=== PATIENT | male | born 1945 | race Caucasian/White ===

== ENCOUNTER 2016-07-31 10:01 | Inpatient (IN) | payer MEDICARE, OTHER ==
[2016-07-31] VITALS (7 sets, daily range): BP systolic 121–137; BP diastolic 63–73; PULSE 87–96; RESP 18–20; TEMP 98.6–101.1; O2SAT 92–96
[~2016-07-31] VITALS: Ht 185.4 cm; Wt 95.4 kg
[~2016-07-31 10:01] MED LIST: DOCU1CAP39 PO; LACT20SO4 PO; OMEP20TA39 PO; REME45TA PO; TRAZ50TA4 PO; VENL75XR PO; ZYPR15TA PO
[2016-07-31] MEDS ORDERED: SODIUM CHLOR 0.9% 1000 ML INJ 800 ML IV ONE (10:08)
[2016-07-31] MEDS ORDERED: SODIUM CHLOR 0.9% 1000 ML INJ 1,000 ML IV ONE (10:08)
--- NOTE | 2016-07-31 10:13 | PD ---
HPI Chief Complaint: generalized weakness Time Seen by Provider: 10:04 Travel History International Travel<30 days: No Contact w/Intl Traveler<30days: No Traveled to known affect area: No History of Present Illness HPI 70-year-old male brought in by ambulance from home for evaluation of fevers, chills, generalized weakness. Symptoms of been going on for last 2 days. The patient reports that he feels so weak that he can barely walk across the room. No focal deficits. EMS noted a temp of 99.8F with slight tachycardia with a heart rate of 100. Patient has had a nonproductive cough. No chest pain or dyspnea. No abdominal pain. No urinary symptoms. He reports that he has not had anything to eat or drink in the last 2 days. PFSH Past Medical History Anxiety: Yes Depression: Yes Cancer: No Cardiovascular Problems: No High Cholesterol: No Diabetes: No Diminished Hearing: Yes Headaches: No Immune Disorder: No Musculoskeletal: No Psychiatric: Yes (Depression, Delusional Disorder, Major Depressive ) Respiratory: No Immunizations Current: No Schizophrenia: Yes (PER PATIENTS BROTHER) Seizures: No Thyroid Disease: No Past Surgical History Cholecystectomy: Yes Other Surgery: Yes (gallbladder) Social History Alcohol Use: No Tobacco Use: Yes (3PPD) Substance Use: Yes Allergies-Medications (Allergen,Severity, Reaction): Coded Allergies: Penicillin (Verified Allergy, Intermediate, 01/23/15) Reported Meds & Prescriptions Reported Meds & Active Scripts Active Reported Levofloxacin 500 Mg Tab 500 Mg PO DAILY Tamsulosin (Tamsulosin HCl) 0.4 Mg Cap 0.4 Can PO HS Esomeprazole DR 40 Mg Capdr 40 Mg PO DAILY Mirtazapine 30 Mg Tab 30 Mg PO HS Alprazolam 2 Mg Tab 2 Mg PO Q8H PRN Lyrica (Pregabalin) 150 Mg Cap 150 Mg PO BID Review of Systems Except as stated in HPI: all other systems reviewed are Neg Physical Exam Narrative GENERAL: Well-developed, well-nourished, tremulous, comfortable, no acute distress. SKIN: Warm and dry. No rash. HEAD: Atraumatic. Normocephalic. EYES: Pupils equal and round. No scleral icterus. No injection or drainage. ENT: No nasal bleeding or discharge. Mucous membranes pink and dry. Several missing teeth. NECK: Trachea midline. No JVD. No nuchal rigidity. CARDIOVASCULAR: Tachycardic, regular. RESPIRATORY: No accessory muscle use. Clear to auscultation. Breath sounds equal bilaterally. GASTROINTESTINAL: Abdomen soft, non-tender, nondistended. MUSCULOSKELETAL: No obvious deformities. No clubbing. No cyanosis. No edema. NEUROLOGICAL: Awake and alert. No obvious cranial nerve deficits. Motor grossly within normal limits. Normal speech. Normal range of motion in all joints and extremities. No focal deficits. PSYCHIATRIC: Appropriate mood and affect; insight and judgment normal. Data Data Last Documented VS Vital Signs Date Time Temp Pulse Resp B/P Pulse Ox O2 Delivery O2 Flow Rate FiO2 07/31/16 11:45 92 Room Air 07/31/16 10:09 98.6 92 20 136/73 Orders Electrocardiogram (07/31/16 10:08) Complete Blood Count With Diff (07/31/16 10:08) Comprehensive Metabolic Panel (07/31/16 10:08) Prothrombin Time / Inr (Pt) (07/31/16 10:08) Act Partial Throm Time (Ptt) (07/31/16 10:08) Lactic Acid Sepsis Protocol (07/31/16 10:08) Urinalysis - C+S If Indicated (07/31/16 10:08) Influenzae A/B Antigen (07/31/16 10:08) Blood Culture (07/31/16 10:08) Chest, Single Ap (07/31/16 10:08) Blood Glucose (07/31/16 10:08) Ecg Monitoring (07/31/16 10:08) Iv Access Insert/Monitor (07/31/16 10:08) Oximetry (07/31/16 10:08) Oxygen Administration (07/31/16 10:08) Sodium Chlor 0.9% 1000 Ml Inj (Ns 1000 M (07/31/16 10:08) Sodium Chlor 0.9% 1000 Ml Inj (Ns 1000 M (07/31/16 10:08) Ct Brain W/O Iv Contrast(Rout) (07/31/16 ) Cath For Specimen (07/31/16 11:09) Labs Laboratory Tests Test 07/31/16 07/31/16 07/31/16 10:15 11:30 12:39 White Blood Count 5.3 TH/MM3 Red Blood Count 4.63 MIL/MM3 Hemoglobin 14.7 GM/DL Hematocrit 43.5 % Mean Corpuscular Volume 93.8 FL Mean Corpuscular Hemoglobin 31.7 PG Mean Corpuscular Hemoglobin 33.8 % Concent Red Cell Distribution Width 14.0 % Platelet Count 137 TH/MM3 Mean Platelet Volume 8.2 FL Neutrophils (%) (Auto) 87.8 % Lymphocytes (%) (Auto) 5.2 % Monocytes (%) (Auto) 6.5 % Eosinophils (%) (Auto) 0.0 % Basophils (%) (Auto) 0.5 % Neutrophils # (Auto) 4.7 TH/MM3 Lymphocytes # (Auto) 0.3 TH/MM3 Monocytes # (Auto) 0.3 TH/MM3 Eosinophils # (Auto) 0.0 TH/MM3 Basophils # (Auto) 0.0 TH/MM3 CBC Comment AUTO DIFF Differential Comment AUTO DIFF CONFIRMED Platelet Estimate LOW Platelet Morphology Comment NORMAL Prothrombin Time 12.7 SEC Prothromb Time International 1.1 RATIO Ratio Activated Partial 24.5 SEC Thromboplast Time Sodium Level 136 MEQ/L Potassium Level 3.9 MEQ/L Chloride Level 101 MEQ/L Carbon Dioxide Level 26.2 MEQ/L Anion Gap 9 MEQ/L Blood Urea Nitrogen 10 MG/DL Creatinine 1.43 MG/DL Estimat Glomerular Filtration 49 ML/MIN Rate Random Glucose 83 MG/DL Lactic Acid Level 1.4 mmol/L Calcium Level 8.7 MG/DL Total Bilirubin 1.1 MG/DL Aspartate Amino Transf 24 U/L (AST/SGOT) Alanine Aminotransferase 12 U/L (ALT/SGPT) Alkaline Phosphatase 67 U/L Total Protein 7.3 GM/DL Albumin 3.2 GM/DL Urine Color YELLOW Urine Turbidity CLEAR Urine pH 5.5 Urine Specific [place] 1.012 Urine Protein NEG mg/dL Urine Glucose (UA) NEG mg/dL Urine Ketones 10 mg/dL Urine Occult Blood TRACE Urine Nitrite NEG Urine Bilirubin NEG Urine Urobilinogen LESS THAN 2.0 MG/DL Urine Leukocyte Esterase NEG Urine RBC 1 /hpf Urine WBC 1 /hpf Urine Squamous Epithelial <1 /hpf Cells Urine Hyaline Casts 4 /lpf Urine Mucus FEW /lpf Microscopic Urinalysis Comment CATH-CULT NOT IND MDM Medical Decision Making Medical Screen Exam Complete: Yes Emergency Medical Condition: Yes Medical Record Reviewed: Yes Differential Diagnosis Sepsis, pneumonia, UTI, dehydration, electrolyte abnormality Narrative Course Initial vital signs show heart rate 92, blood pressure 136/73, pulse ox 95% on room air, oral temp of 98.6 reason high. CBC shows WBC 5.3, hemoglobin 14.7, hematocrit 43.5, platelets 137, neutrophils 88%. CBC is remarkable for a creatinine of 1.43 which is around his baseline, GFR 49 , otherwise unremarkable. Lactic acid is 1.4. UA is not suggestive of UTI. Chest x-ray read as normal exam. CT head: CONCLUSION: Stable CT brain compared to the prior study. 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 The patient has some renal insufficiency with a creatinine that is about double his baseline. He tells me he has not had anything to eat or drink in the last 2 days because he is felt to weak. He has had generalized weakness and is tremulous. There are no focal neurologic deficits. He lives alone. He states that he feels so weak that he is unable to walk. He is able to stand the emergency Department, however he is very unsteady. At this point the patient's diagnosis is failure to thrive. I do not believe he is a safe discharge home, and is definitely a fall risk. He will be admitted for overnight observation for further treatment and evaluation. Case discussed with [facility] hospitalist Dr. Urena who will admit the patient to his service. Diagnosis Primary Impression: Generalized weakness Additional Impressions: Failure to thrive in adult Renal insufficiency Admitting Information Admitting Physician Requests: Vinod Benites MD Jul 31, 2016 10:13
[2016-07-31] MEDS ORDERED: LYRI150C PO (10:22)
[2016-07-31] MEDS ORDERED: TAMS0.4C4 PO (10:22)
[2016-07-31] MEDS ORDERED: ESOM1CAP16 PO (10:22)
[2016-07-31] MEDS ORDERED: FLUO20CA4 PO (10:22)
[2016-07-31] MEDS ORDERED: LEVO500T3 PO (10:22)
[2016-07-31] MEDS ORDERED: MIRT30TA PO (10:22)
[2016-07-31] MEDS ORDERED: ALPR2TAB3 PO (10:22)
[2016-07-31 10:32] LABS: AUTOMATED NEUTROPHIL # 4.7 TH/MM3 (1.8-7.7); BASOPHIL % 0.5 % (0.0-2.0); HEMATOCRIT 43.5 % (39.0-51.0); LYMPH % 5.2 % (9.0-44.0); LYMPHOCYTE # 0.3 TH/MM3 (1.0-4.8); MEAN CELL VOLUME 93.8 FL (80.0-100.0); MEAN CORPUSCULAR HEMOGLOBIN 31.7 PG (27.0-34.0); MEAN CORPUSCULAR HGB CONC 33.8 % (32.0-36.0); MONO % 6.5 % (0.0-8.0); NEUT % 87.8 % (16.0-70.0); PLATELET COUNT 137 TH/MM3 (150-450); RED BLOOD COUNT 4.63 MIL/MM3 (4.50-5.90); WHITE BLOOD COUNT 5.3 TH/MM3 (4.0-11.0)
--- NOTE | 2016-07-31 10:44 | RADRPT ---
EXAM DATE/TIME: 07/31/2016 10:30 [facility] COMPARISON: No previous studies available for comparison. INDICATIONS : Shortness of breath. MEDICAL HISTORY : None. SURGICAL HISTORY : None. ENCOUNTER: Initial ACUITY: 1 day PAIN SCORE: 0/10 LOCATION: Bilateral chest FINDINGS: A single view of the chest demonstrates the lungs to be symmetrically aerated without evidence of mas s, infiltrate or effusion. The cardiomediastinal contours are unremarkable. Osseous structures are intact. CONCLUSION: Normal examination. Julius Diaz MD on July 31, 2016 at 10:42 Board Certified Radiologist. This report was verified electronically.
[2016-07-31 10:50] LABS: HEMO FLAGS AUTO DIFF
[2016-07-31 10:56] LABS: ALKALINE PHOSPHATASE 67 U/L (45-117); TOTAL BILIRUBIN ADULT 1.1 MG/DL (0.2-1.0)
[2016-07-31 11:39] LABS: PLATELET ESTIMATE SMEAR LOW (NORMAL); PLATELET MORPHOLOGY NORMAL (NORMAL); SCAN/DIFF AUTO DIFF CONFIRMED
--- NOTE | 2016-07-31 11:48 | RADRPT ---
EXAM DATE/TIME: 07/31/2016 11:13 [facility] COMPARISON: CT BRAIN W/O CONTRAST, December 04, 2014, 19:14. INDICATIONS : General weakness. Fever. RADIATION DOSE: 48.21 CTDIvol (mGy) MEDICAL HISTORY : None SURGICAL HISTORY : None. ENCOUNTER: Initial ACUITY: 1 day PAIN SCALE: 0/10 LOCATION: cranial TECHNIQUE: Multiple contiguous axial images were obtained of the head. Using automated exposure control and adj ustment of the mA and/or kV according to patient size, radiation dose was kept as low as reasonably a chievable to obtain optimal diagnostic quality images. FINDINGS: CEREBRUM: The ventricles are normal for age. There is bilateral cortical atrophy especially over the frontal lo bes. This is stable compared to the prior study. There is an old stable left lacunar infarct in the b alison ganglia. No evidence of midline shift, mass lesion, hemorrhage or acute infarction. No extra-a xial fluid collections are seen. POSTERIOR FOSSA: The cerebellum and brainstem are intact. The 4th ventricle is midline. The cerebellopontine angle i s unremarkable. EXTRACRANIAL: The visualized portion of the orbits is intact. SKULL: The calvaria is intact. No evidence of skull fracture. CONCLUSION: Stable CT brain compared to the prior study. No change in the bilateral cortical atrophy and old foca l left lacunar infarct. Bharath Kathleen MD on July 31, 2016 at 11:46 Board Certified Radiologist. This report was verified electronically.
[2016-07-31 12:12] LABS: ANION GAP 9 MEQ/L (5-15); AST (GOT) 24 U/L (15-37); BICARBONATE 26.2 MEQ/L (21.0-32.0); BLOOD UREA NITROGEN 10 MG/DL (7-18); CHLORIDE 101 MEQ/L (98-107); GLOMERULAR FILTRATION RATE 49 ML/MIN (>89); POTASSIUM 3.9 MEQ/L (3.5-5.1); SODIUM (NA) 136 MEQ/L (136-145)
[2016-07-31 12:14] LABS: INTERNATIONAL NORMALIZED RATIO 1.1 RATIO; PROTHROMBIN TIME - PATIENT 12.7 SEC (9.8-11.6)
[2016-07-31 12:18] LABS: APTT (PATIENT) 24.5 SEC (24.3-30.1)
[2016-07-31 12:20] LABS: ALT (GPT) 12 U/L (12-78)
[2016-07-31 12:57] LABS: BLOOD, URINE TRACE (NEG); COMMENT (UR) CATH-CULT NOT IND; CULTURE IF INDICATED CATH CULTURE NOT IND; GLUCOSE,URINE NEG (NEG); HYALINE CAST, URINE 4 /lpf (RARE); KETONE, URINE 10 mg/dL (NEG); MUCUS URINE FEW /lpf (OCC); NITRITE,URINE NEG (NEG); PH, URINE 5.5 (5.0-8.5); SQUAMOUS EPITHELIAL CELL URINE <1 /hpf (0-5); URINE COLOR YELLOW (YELLW/STRAW)
[2016-07-31] MEDS: SODIUM CHLOR 0.9% 1000 ML INJ 1,000 ML IV SCH ×2 (13:18→23:12)
[2016-07-31] MEDS ORDERED: NALOXONE HCL 0.4 MG/ML AMP IV PRN (13:30)
[2016-07-31] MEDS ORDERED: SODIUM CHLORIDE 0.9% FLUSH 5 ML FLUSH FLUSH PRN (13:30)
[2016-07-31] MEDS: DOCUSATE SODIUM 100 MG CAP PO SCH ×2 (13:30→20:40)
[2016-07-31] MEDS: HEPARIN SODIUM - SQ 10,000 UNITS/ML VIAL SQ SCH (14:15)
[2016-07-31] MEDS ORDERED: MIRT45TA PO (17:15)
[2016-07-31] MEDS: NYSTATIN SUSP 500,000 U/5 ML CUP SWISH-SWAL SCH ×2 (18:00→20:40)
[2016-07-31] MEDS: RESP: ALBUTEROL 2.5 MG/IPRATROPIUM 0.5 MG NEB (SCH) NEB (19:23)
[2016-07-31] MEDS: SODIUM CHLORIDE 0.9% FLUSH 5 ML FLUSH FLUSH SCH (20:40)
--- NOTE | 2016-07-31 21:35 | HP.UPD ---
H&P Update Note : 70 year old male, today unable to stand 2/2 leg weakness, falls, chills, fever 101.1 seen and examined in ED . admitted , consult neuro and ID H&P to follow Girma Urena MD Jul 31, 2016 21:30
[2016-07-31] MEDS ORDERED: Vancomycin Consult Pharmacy 1 EA OTHER SCH (21:45)
[2016-07-31] MEDS ORDERED: VANCOMYCIN INJ 1,000 MG in SODIUM CHLOR 0.9% 250 ML INJ 250 ML IV SCH (21:45)
[2016-07-31] MEDS ORDERED: VANCOMYCIN INJ 1,800 MG in SODIUM CHLORID 0.9% 500 ML INJ 500 ML IV ONE (22:30)
[2016-07-31] MEDS: ALPRAZolam 1 MG TAB PO PRN (23:11)
[2016-07-31] MEDS: TAMSULOSIN HCL 0.4 MG CAP PO SCH (23:12)
[2016-07-31] MEDS: MIRTAZAPINE 15 MG TAB PO SCH (23:12)
[2016-07-31] MEDS: PREGABALIN 75 MG CAP PO SCH (23:12)
[2016-08-01] VITALS (9 sets, daily range): BP systolic 102–142; BP diastolic 58–69; PULSE 67–102; RESP 18–20; TEMP 98.6–101.7; O2SAT 91–97
[2016-08-01] MEDS: SODIUM CHLOR 0.9% IV SCH ×2 (01:29→07:46)
[2016-08-01] MEDS: ACYCLOVIR IV SCH ×2 (01:29→07:46)
[2016-08-01] MEDS: HEPARIN SODIUM - SQ 10,000 UNITS/ML VIAL SQ SCH ×2 (01:29→13:59)
[2016-08-01] MEDS: SODIUM CHLOR 0.9% 1000 ML INJ 1,000 ML IV SCH ×2 (07:46→18:15)
[2016-08-01] MEDS: PANTOPRAZOLE SOD 40 MG DELAYED RELEASE TAB PO SCH (07:47)
[2016-08-01] MEDS: NYSTATIN SUSP 500,000 U/5 ML CUP SWISH-SWAL SCH ×4 (07:47→20:41)
[2016-08-01] MEDS: FLUoxetine HCL 20 MG CAP PO SCH (07:47)
[2016-08-01] MEDS: PREGABALIN 75 MG CAP PO SCH ×3 (07:47→20:41)
[2016-08-01] MEDS: SODIUM CHLORIDE 0.9% FLUSH 5 ML FLUSH FLUSH SCH ×2 (07:47→20:42)
[2016-08-01] MEDS: DOCUSATE SODIUM 100 MG CAP PO SCH ×2 (07:48→20:41)
--- NOTE | 2016-08-01 08:02 | PD.CONS ---
History of Present Illness Service Neurology Consult Requested By medical Reason for Consult weakness Primary Care Physician Ko Veloz, DO History of Present Illness 70-year-old male brought in by ambulance from home for evaluation of fevers, chills, generalized weakness. Symptoms of been going on for last 2 days. he has not been eating well. he feels stronger this am. denies any focal weakness, kay, neck pain, vision loss , sensory symptoms, diplopia, b/b incontinence. noted to be in renal failure. on lyrica/xanax/remeron. see's Dr. Veloz for medical care. PFSH Past Medical History Anxiety: Yes Depression: Yes Cancer: No Cardiovascular Problems: No High Cholesterol: No Diabetes: No Diminished Hearing: Yes Headaches: No Immune Disorder: No Musculoskeletal: No Psychiatric: Yes (Depression, Delusional Disorder, Major Depressive ) Respiratory: No Past Surgical History Cholecystectomy: Yes Other Surgery: Yes (gallbladder) Social History Alcohol Use: No Tobacco Use: Yes (3PPD) Substance Use: Yes Allergies-Medications (Allergen,Severity, Reaction): Coded Allergies: Penicillin (Verified Allergy, Intermediate, 01/23/15) Reported Meds & Prescriptions Reported Meds & Active Scripts Active Reported Levofloxacin 500 Mg Tab 500 Mg PO DAILY Tamsulosin (Tamsulosin HCl) 0.4 Mg Cap 0.4 Can PO HS Esomeprazole DR 40 Mg Capdr 40 Mg PO DAILY Mirtazapine 30 Mg Tab 30 Mg PO HS Alprazolam 2 Mg Tab 2 Mg PO Q8H PRN Lyrica (Pregabalin) 150 Mg Cap 150 Mg PO BID Review of Systems Except as stated in HPI: all other systems reviewed are Neg Review of Systems All other ROS: ROS reviewed as documented in chart Past Family Social History Allergies: Coded Allergies: Penicillin (Verified Allergy, Intermediate, 01/23/15) Active Ordered Medications Current Medications Medications (Trade) Dose Ordered Sig/Noe Route Start Time Stop Time Status Last Admin (NS 1000 ml Inj) 1,000 ml @ 100 mls/hr Q10H IV 07/31/16 13:18 08/01/16 07:46 (NS Flush) 2 ml UNSCH PRN FLUSH 07/31/16 13:30 (NS Flush) 2 ml BID FLUSH 07/31/16 21:00 08/01/16 07:47 (Colace) 100 mg Q12HR PO 07/31/16 13:30 (Heparin Inj) 5,000 units Q12H SQ 07/31/16 14:00 08/01/16 01:29 (Narcan Inj) 0.4 mg UNSCH PRN IV 07/31/16 13:30 (Mycostatin Liq) 5 ml QID SWISH-SWAL 07/31/16 18:00 (Pneumovax-23 Inj) 25 mcg ONCE ONCE IM 08/01/16 09:00 08/01/16 09:01 Acetaminophen/ Hydrocodone Bitart 1 tab 1 tab Q4H PRN PO 07/31/16 18:15 Pharmacy Profile Note 0 ml @ 0 mls/hr UNSCH OTHER 07/31/16 21:45 (Zovirax Inj/NS 250 ml Inj) 250 ml @ 250 mls/hr Q8H IV 08/01/16 00:00 08/01/16 07:46 (Xanax) 2 mg Q8H PRN PO 07/31/16 21:45 07/31/16 23:11 (PROzac) 20 mg DAILY PO 08/01/16 09:00 08/01/16 07:47 (Remeron) 45 mg HS PO 07/31/16 21:45 07/31/16 23:12 (Lyrica) 150 mg BID PO 07/31/16 21:45 08/01/16 07:47 (Flomax) 0.4 mg HS PO 07/31/16 21:45 07/31/16 23:12 (Protonix) 40 mg DAILY PO 08/01/16 09:00 08/01/16 07:47 Exam I&O / VS Vital Signs Date Time Temp Pulse Resp B/P Pulse Ox O2 Delivery O2 Flow Rate FiO2 08/01/16 07:37 99.1 88 18 102/58 97 08/01/16 03:28 98.6 93 20 102/62 95 07/31/16 23:17 100.0 87 20 126/67 93 07/31/16 20:03 90 07/31/16 17:27 96 07/31/16 17:15 101.1 95 18 137/72 93 07/31/16 11:45 92 Room Air 07/31/16 11:45 92 Room Air 07/31/16 11:30 88 20 121/63 96 07/31/16 10:11 95 Room Air 07/31/16 10:09 98.6 92 20 136/73 95 General: Alert and Oriented, No acute distress Eye: EOMI Respiratory: Non-labored respirations Cardiology: Normal rate Musculoskeletal: ROM Neurologic: Alert, Oriented, Normal sensory, CN II-XII intact, Gag reflex normal, Normal DTR's Psychiatric: Cooperative, Appropriate mood & affect Exam Comments alert, ox 3. pres Trump, pcp [facility]. poor eye contact at times, follows, no temp tenderness, neck supple, eomi, face sym, vff, mild ue asterixis, able to raise all 4 ext to gravity, msr symmetric, no clonus, planterflexor Review/Management Diagnosis/Plan: (1) Generalized weakness Plan: may be 2/2 dehydration, poor po intake. could also have mild serotonin syndrome in the setting of multiple psychotropic medication use and arf r/o infection- has mild fevers. cxr negative. ct brain naicp. mild asterixis on exam, no focal weakness recs ivf f/u imaging p.t. f/u cx's, temp follow exam (2) Renal insufficiency Plan: ivf (3) Depression Plan: seen by psych in the past (4) Tobacco abuse Plan: cessation d/w pt Problem Qualifiers (1) Depression: Marco Gould MD Aug 01, 2016 08:02
--- NOTE | 2016-08-01 08:32 | MH ---
cc: SAHRA MATA MD DATE OF ADMISSION 07/31/2016 DATE OF 1945 Admitted for observation CHIEF COMPLAINT Fever, chills and weakness. HISTORY OF THE PRESENT ILLNESS This is a pleasant 70-year-old white male who states that he was in his usual state of health up until about two days ago. He noted some chills and fever with generalized weakness. He states that his appetite has been decreased but he was able to keep down some food yesterday but nothing today. He does complain of some nausea but no vomiting. Denies any chest pain. No headache. No heartburn. No significant weight gain or loss within the past six months. The patient is a chronic tobacco user, states that he does still smoke 2-3 packs of cigarettes a week. Yesterday the patient was very weak and fatigued but was able to get up and go to the bathroom. Today the patient states he could not walk. He said his lower extremities felt like rubber, but he denied any numbness or tingling, just stated that he was very, very weak. The patient does have a nonproductive cough but is not coughing anything up. He is positive today for some low-grade fever and some mild tachycardia, heart rate in the 80s-100. The patient has no problems voiding. Denies any abdominal pain. Denies any history of kidney problems. PAST MEDICAL HISTORY 1. Anxiety disorder. 2. Depression. 3. Hard of hearing. 4. Delusional disorder. 5. residential tobacco use / chronic obstructive pulmonary disease. 6. The record documents per the patient's brother schizophrenia. PAST SURGICAL HISTORY Cholecystectomy. ALLERGIES PENICILLIN. MEDICATIONS Reported on admission: 1. Levofloxacin 500 milligrams p.o. daily. 2. Tamsulosin 0.4 milligrams at bedtime. 3. Esomeprazole 40 milligrams daily. 4. Mirtazapine 30 milligrams at bedtime. 5. Xanax 2 milligrams tablets, q.8h as needed. 6. Lyrica 150 milligrams p.o. twice a day. SOCIAL HISTORY The patient lives in the [facility], lives alone. 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 Denies any alcohol or illicit drugs. FAMILY HISTORY Cancer and Alzheimer's disease. REVIEW OF SYSTEMS A 12 point review was obtained, positives mentioned were generalized weakness and fatigue, cough, chills, fever, decreased appetite, expiratory wheezes. Other systems are negative or unremarkable. PHYSICAL EXAMINATION GENERAL: This is a slim but well-nourished, well-developed white male looks to be of stated age, resting in the bed with some mild distress of chills. No shortness of breath. SKIN: Warm and dry. No rashes. Turgor is good. HEENT: Atraumatic, normocephalic. Pupils equal, round, reactive to light and accommodation at 3. He has no drainage. No scleral icterus. Mucous membranes are pink and dry. He does have several missing teeth. NECK: Supple. CARDIOVASCULAR: Regular rate and rhythm. Borderline tachycardia. Heart sounds distant but no murmurs, rubs, or gallops appreciated. He has no edema and his pulses are intact. LUNGS: His upper wong are clear bilaterally. He does have expiratory wheezes in his lower lobes bilaterally. ABDOMEN: Soft. Nontender. Nondistended. Active bowel sounds in all four quadrants. MUSCULOSKELETAL: He can move his extremities on command. He has no clubbing, cyanosis or edema. 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 NEUROLOGICAL: He is alert, awake. A fairly good historian. Answers questions appropriately. No focal deficits. PSYCHIATRIC: Appropriate mood and affect. Judgment seems to be normal. LABORATORY DATA Diagnostic data, WBC 5.3, hemoglobin 14.7, hematocrit 43.5, platelets 137. Neutrophils auto 87.8. Lymphocytes 5.2. Sodium 136, potassium 3.9, chloride 101, carbon dioxide 26.2, creatinine 1.43, GFR 49, random glucose 83. Lactic acid 1.4. Calcium 8.7. Bilirubin 1.1. AST 24, ALT 12, alkaline phosphatase 67. Total protein 7.3, albumin 3.2. Urine is yellow, clear. PH is 5.5, specific gravity 1.012, negative for glucose or ketones. ____ with 10, trace occult blood. Esterase is negative. IMAGING A chest x-ray is normal examination. CT scan of the head old left lacunar infarct. No acute changes in his bilateral cortical atrophy. ASSESSMENT AND PLAN 1. Renal insufficiency with acute kidney injury. 2. History of old lacunar infarct. 3. Debility acute onset with generalized weakness and unable to walk. 4. Fever of unknown origin. 5. Possible bronchitis acute versus chronic with chronic obstructive pulmonary disease. 6. History of depression. 7. Mild protein calorie malnutrition. 8. History of schizophrenia with major depressive disorder. 9. Possible lactic acid sepsis. PLAN 1. Our plan is to admit for observation. 2. Monitor his labs. 3. Vital signs q.4h. 4. Keep him on telemetry. 5. Regular diet. 6. Reconcile his medications. 7. Deep venous thrombosis prophylaxis with heparin. 8. We will monitor his glucose and his labs. 9. O2 st 2 liters as needed. 10. DuoNeb as warranted. 11. Sequential compression devices. 12. The patient is full code, full aggressive care and we will monitor. ADDENDUM ASSESSMENT AND PLAN: After speaking with Dr. Mata, and both of us visiting this patient, there are some orders and/or diagnostic tests and consults to be added to his plan of care. DVT prophylaxis with SCDs, heparin, subcu for DVT prophylaxis, will obtain a sputum specimen if possible for culture and sensitivity and Gram stain as well as cytology. Labs to be ordered today and in the morning include C-reactive protein, CPK daily x3, LDH in the morning, B1, B6 and B12 levels, cortisol level in the morning at 6 a.m., nystatin 200 milligrams swish and swallow 4x a day, DuoNeb q6 while awake. Will consult ID and consult neurology for their expert opinion. The patient has acute onset of lower extremity weakness, as well as a low grade fever, with no leukocytosis, chills uncontrollable, lactic acid 1.4. Will also get a sed rate in the morning and reevaluate this patient's needs over the next 24 to 48 hours. Dictated by: ERIN Angelo MD STEPHANE Nugent/SHANTE /3:47 PM /8:32 AM
[2016-08-01 08:34] LABS: AUTOMATED NEUTROPHIL # 2.1 TH/MM3 (1.8-7.7); BASOPHIL % 0.8 % (0.0-2.0); EOSINOPHIL % 0.2 % (0.0-4.0); HEMATOCRIT 35.8 % (39.0-51.0); HEMO FLAGS DIFF FINAL; LYMPH % 18.3 % (9.0-44.0); LYMPHOCYTE # 0.5 TH/MM3 (1.0-4.8); MEAN CELL VOLUME 94.3 FL (80.0-100.0); MEAN CORPUSCULAR HEMOGLOBIN 31.8 PG (27.0-34.0); MEAN CORPUSCULAR HGB CONC 33.7 % (32.0-36.0); MONO % 6.5 % (0.0-8.0); NEUT % 74.2 % (16.0-70.0); PLATELET COUNT 101 TH/MM3 (150-450); RED CELL DISTRIBUTION WIDTH 13.8 % (11.6-17.2); WHITE BLOOD COUNT 2.9 TH/MM3 (4.0-11.0)
[2016-08-01] MEDS ORDERED: PNEUMOCOCCAL POLYVALENT INJ 25 MCG/0.5 ML SYR IM ONE (09:00)
--- NOTE | 2016-08-01 09:08 | HHI.PR ---
Subjective Remarks No SOB this am, No chest pain ADAMS's with purpose Overcomes resistance in his lower extremities. Appetite fair Occasional cough No chills Objective Objective Results - Vital Signs Date Time Temp Pulse Resp B/P Pulse Ox O2 Delivery O2 Flow Rate FiO2 08/01/16 07:37 99.1 88 18 102/58 97 08/01/16 03:28 98.6 93 20 102/62 95 07/31/16 23:17 100.0 87 20 126/67 93 07/31/16 20:03 90 07/31/16 17:27 96 07/31/16 17:15 101.1 95 18 137/72 93 07/31/16 11:45 92 Room Air 07/31/16 11:45 92 Room Air 07/31/16 11:30 88 20 121/63 96 07/31/16 10:11 95 Room Air 07/31/16 10:09 98.6 92 20 136/73 95 Result Diagram: 08/01/16 0813 07/31/16 1130 Other Results Last Impressions Chest X-Ray 07/31/16 1008 Signed Impressions: Service Date/Time: Sunday, July 31, 2016 10:30 - CONCLUSION: Normal examination. Julius Diaz MD Head CT 07/31/16 0000 Signed Impressions: Service Date/Time: Sunday, July 31, 2016 11:13 - CONCLUSION: Stable CT brain compared to the prior study. 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 Bharath Kathleen MD Medications and IVs Active Medications Acetaminophen/ Hydrocodone Bitart 1 tab 1 tab Q4H PRN PO; Start 07/31/16 at 18: 15 Acyclovir Sodium/ Sodium Chloride (Zovirax Inj/NS 250 ml Inj) 250 ml @ 250 mls/ hr Q8H IV Last administered on 08/01/16 07:46; Admin Dose 250 MLS/HR; Start 08/01 at 00:00 Alprazolam (Xanax) 2 mg Q8H PRN PO Last administered on 07/31/16 23:11; Admin Dose 2 MG; Start 07/31/16 at 21:45 Docusate Sodium (Colace) 100 mg Q12HR PO; Start 07/31/16 at 13:30 Fluoxetine HCl (PROzac) 20 mg DAILY PO Last administered on 08/01/16 07:47; Admin Dose 20 MG; Start 08/01/16 at 09:00 Heparin Sodium (Porcine) (Heparin Inj) 5,000 units Q12H SQ Last administered on 08/01/16 01:29; Admin Dose 5,000 UNITS; Start 07/31/16 at 14:00 IV Flush (NS Flush) 2 ml BID FLUSH Last administered on 08/01/16 07:47; Admin Dose 2 ML; Start 07/31/16 at 21:00 IV Flush (NS Flush) 2 ml UNSCH PRN FLUSH; Start 07/31/16 at 13:30 Mirtazapine (Remeron) 45 mg HS PO Last administered on 07/31/16 23:12; Admin Dose 45 MG; Start 07/31/16 at 21:45 Naloxone HCl (Narcan Inj) 0.4 mg UNSCH PRN IV; Start 07/31/16 at 13:30 Nystatin (Mycostatin Liq) 5 ml QID SWISH-SWAL; Start 07/31/16 at 18:00 Pantoprazole Sodium 40 mg 40 mg DAILY PO Last administered on 08/01/16 07:47; Admin Dose 40 MG; Start 08/01/16 at 09:00 Pharmacy Profile Note 0 ml @ 0 mls/hr UNSCH OTHER; Start 07/31/16 at 21:45 Pneumococcal Polyvalent Vaccine (Pneumovax-23 Inj) 25 mcg ONCE ONCE IM; Start at 09:00; Stop 08/01/16 at 09:01 Pregabalin (Lyrica) 75 mg BID PO; Start 08/01/16 at 09:00 Pregabalin (Lyrica) 150 mg BID PO Last administered on 08/01/16 07:47; Admin Dose 150 MG; Start 07/31/16 at 21:45; Stop 08/01/16 at 08:07; Status DC Sodium Chloride 800 ml @ 1,000 mls/hr Q48M ONCE IV Last administered on 11:44; Admin Dose 1,000 MLS/HR; Start 07/31/16 at 10:08; Stop 07/31/16 at 10:55; Status DC Sodium Chloride 1,000 ml @ 1,000 mls/hr Q1H ONCE IV Last administered on 11:44; Admin Dose 1,000 MLS/HR; Start 07/31/16 at 10:08; Stop 07/31/16 at 11:07; Status DC Sodium Chloride (NS 1000 ml Inj) 1,000 ml @ 100 mls/hr Q10H IV Last administered on 08/01/16 07:46; Admin Dose 100 MLS/HR; Start 07/31/16 at 13:18 Tamsulosin HCl (Flomax) 0.4 mg HS PO Last administered on 07/31/16 23:12; Admin Dose 0.4 MG; Start 07/31/16 at 21:45 Vancomycin HCl 1000 mg/Sodium Chloride 250 ml @ 250 mls/hr Q12H IV; Start 07/31 at 21:45; Status UNV Vancomycin HCl/ Sodium Chloride (Vancomycin Inj/ NS 500 ml Inj) 518 ml @ 250 mls/hr ONCE ONCE IV Last administered on 07/31/16 23:12; Admin Dose 250 MLS/HR ; Start 07/31/16 at 22:30; Stop 08/01/16 at 00:34; Status DC ROS General: Fatigue, Weakness, Other (10 point ROS done. Positives include fatigue weakness and dyspnea. Anxiety. All other systems negative this a.m.) Pulmonary: SOB (improved) Neuro/MS: Other (anxiety) Physical Exam Physical Exam GENERAL: This is a slim but well-nourished, well-developed white male looks to be of stated age, resting in the bed with no distress this a.m. No shortness of breath. SKIN: Warm and dry. No rashes. Turgor is good. HEENT: Atraumatic, normocephalic. Pupils 3 mm equal, round, reactive to light and accommodation at 3. He has no drainage. No scleral icterus. Mucous membranes are pink and dry. He does have several missing teeth. NECK: Supple. CARDIOVASCULAR: Regular rate and rhythm. Borderline tachycardia. Heart sounds distant but no murmurs, rubs, or gallops appreciated. He has no edema and his pulses are intact. LUNGS: His upper wong are clear bilaterally. He does have expiratory wheezes in his lower lobes bilaterally. Decreased breath sounds in bases bilateral. ABDOMEN: Soft. Nontender. Nondistended. Active bowel sounds in all four quadrants. MUSCULOSKELETAL: He can move his extremities on command. He has no clubbing, cyanosis or edema. 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 Overcomes resistance in his lower extremities on command. NEUROLOGICAL: He is alert, drowsy but responds to verbal stimuli A fairly good historian. Answers questions appropriately. No focal deficits. Objective Remarks I'm breathing better this morning. A/P Assessment and Plan 1. Renal insufficiency with acute kidney injury. 2. History of old lacunar infarct. 3. Debility acute onset with generalized weakness and unable to walk. 4. Fever of unknown origin. 5. Possible bronchitis acute versus chronic with chronic obstructive pulmonary disease. 6. History of depression. 7. Mild protein calorie malnutrition. 8. History of schizophrenia with major depressive disorder. 9. Possible lactic acid sepsis. Monitor his labs. Chemistry labs still pending this morning. Normal B12 level Some leukopenia this morning. Anemia mild, recheck CBC in a.m. IV antibiotics with vancomycin. Febrile within the last 24 hours. Normal this a.m. monitor Nystatin swish and swallow Pain management, anxiety management, she is much more comfortable this a.m. No further chills noted Appreciate neurology consult . CT showed Old left lacunar infarct. Monitor further testing/MRI Vital signs q.4h. telemetry, regular rhythm Regular diet, appetite fair and improving medications reconciled Deep venous thrombosis prophylaxis with heparin. PUD prophylaxis with Protonix SCDs O2 st 2 liters as needed, using when necessary DuoNeb as warranted. The patient is full code, full aggressive care and we will monitor. MD STEPHANE Nugent/SHANTE /3:47 PM /8:32 AM HISTORY AND PHYSICAL Pt Name: GERALD BASURTOMR#: [id number]:[id number] By:Girma Urena [facility] #: [id number] Patient: GERALD COSTA SHERINE Report #: [id number] Electronically Signed: Patient: GERALD BAEZAJODI BASURTO Report #: [id number] Electronically Signed: Discussed With: Nurse, Family (patient), Other (Dr. Quiros. Patient seen on his behalf) Orly Hensley Aug 01, 2016 09:08
[2016-08-01] MEDS: RESP: ALBUTEROL 2.5 MG/IPRATROPIUM 0.5 MG NEB (SCH) NEB ×3 (09:09→19:55)
[2016-08-01 09:12] LABS: BICARBONATE 21.7 MEQ/L (21.0-32.0); POTASSIUM 3.8 MEQ/L (3.5-5.1)
[2016-08-01 09:51] LABS: CKMB 2.5 NG/ML (0.5-3.6)
[2016-08-01] MEDS: VANCOMYCIN INJ 1,500 MG in SODIUM CHLORID 0.9% 500 ML INJ 500 ML IV SCH ×2 (11:48→23:11)
--- NOTE | 2016-08-01 12:32 | PD.CONS ---
History of Present Illness Service Infectious disease Consult Requested By Dr Frank Urena Reason for Consult Evaluate patient with fever Primary Care Physician Ko Veloz DO Diagnoses: History of Present Illness Patient seen and examined. Records reviewed. Patient is a 70-year-old male, presented to the hospital complaining of 2 day history of fever, chills and rigors. He was also progressively getting weak. He couldn't get out of bed, so he called the ambulance and he was taken to the hospital for further evaluation and treatment. Patient denies any joint pains or swelling or any myalgias. He has not had any nausea vomiting or diarrhea. He denies any urinary complaint. He denies any abdominal pain, back pain. He has not had any headache. He denies any neck pain or any photophobia. Patient has significant history of smoking, and he would on and off have some cough and he is not really notice any significant change in that. He denies any chest pain or any shortness of breath. He has not been bringing up any phlegm. He has not been around anyone sick. Patient is fairly active prior to getting sick. Since admission he has been febrile. His initial WBC is normal, is down to 2.9 today. Chest x-ray was normal. Urinalysis was unremarkable. His initial creatinine was 1.4, and it's down to normal. LFT showed a mildly elevated total bilirubin of 1.1. Influenza testing is negative. Infectious disease consultation is requested to evaluate the patient. Review of Systems Constitutional: COMPLAINS OF: Fever, Chills Eyes: DENIES: Eye pain Ears, nose, mouth, throat: DENIES: Nasal discharge, Oral lesions, Throat pain, Ear Pain, Running Nose, Sinus Pain, Toothache Respiratory: COMPLAINS OF: Cough, DENIES: Hemoptysis, Sputum production, Shortness of breath Cardiovascular: DENIES: Chest pain, Palpitations, Syncope Gastrointestinal: DENIES: Abdominal pain, Diarrhea, Nausea, Vomiting, Difficulty Swallowing Genitourinary: DENIES: Urgency, Dysuria Musculoskeletal: DENIES: Joint pain, Muscle aches, Joint Swelling, Back pain, Neck pain Integumentary: DENIES: Pruritus, Rash Neurologic: DENIES: Headache, Localized weakness Past Family Social History Allergies: Coded Allergies: Penicillin (Verified Allergy, Intermediate, 01/23/15) Past Medical History Anxiety, depression There is mention of schizophrenia Hard of hearing Chronic smoker, possible COPD Past Surgical History Cholecystectomy Active Ordered Medications [place] IV acyclovir Albuterol Xanax Colace Prozac Heparin Remeron Nystatin Protonix Lyrica Flomax Vancomycin Social History Lives alone Chronic smoker 2-3 packs per day Denies alcohol abuse Denies illicit drug use Physical Exam Vital Signs Vital Signs Date Time Temp Pulse Resp B/P Pulse Ox O2 Delivery O2 Flow Rate FiO2 08/01/16 11:21 98.8 102 18 122/61 91 08/01/16 09:10 18 08/01/16 07:37 99.1 88 18 102/58 97 08/01/16 03:28 98.6 93 20 102/62 95 07/31/16 23:17 100.0 87 20 126/67 93 07/31/16 20:03 90 07/31/16 17:27 96 07/31/16 17:15 101.1 95 18 137/72 93 Physical Exam GENERAL: This is a well-nourished, well-developed male, awake and alert, looks acutely ill appearing, having rigors at the time my exam. SKIN: Warm and dry. No generalized rash or ecchymosis. HEAD: Atraumatic. Normocephalic. No temporal or scalp tenderness. EYES: [place] conjunctivae, no petechia or hemorrhage. Pupils equal round and reactive. Extraocular movements full and intact. No scleral icterus. No injection or drainage. ENT: Nose without bleeding, or purulent drainage. Dry oral mucosa. He is edentulous. Throat without erythema, or exudate. Uvula midline. Airway patent. NECK: Trachea midline. No JVD or lymphadenopathy. Supple, nontender, no meningeal signs. CARDIOVASCULAR: Regular rate and rhythm without murmurs, gallops, or rubs. RESPIRATORY: Clear to auscultation. Breath sounds equal bilaterally. No wheezes , rales, or rhonchi. GASTROINTESTINAL: Abdomen soft, nondistended, has mild diffuse tenderness. No guarding or rebound.. No hepato-splenomegaly, or palpable masses. MUSCULOSKELETAL: Extremities without clubbing, cyanosis, or edema. No joint tenderness, or effusion. Good ROM all joints. No calf tenderness. Negative Homans sign bilaterally. Has some tenderness on palpation of his thighs, more on R, but no visible erythema, induration or swelling NEUROLOGICAL: Awake and alert. Cranial nerves II through XII intact. Motor and sensory grossly within normal limit. No localized weakness. Normal speech. PSYCH: Calm and cooperative LINE: PIV with no evidence of infection Laboratory Laboratory Tests Test 07/31/16 07/31/16 08/01/16 12:39 18:30 08:13 Urine Color YELLOW Urine Turbidity CLEAR Urine pH 5.5 Urine Specific [place] 1.012 Urine Protein NEG Urine Glucose (UA) NEG Urine Ketones 10 Urine Occult Blood TRACE Urine Nitrite NEG Urine Bilirubin NEG Urine Urobilinogen LESS THAN 2.0 Urine Leukocyte Esterase NEG Urine RBC 1 Urine WBC 1 Urine Squamous Epithelial <1 Cells Urine Hyaline Casts 4 Urine Mucus FEW Microscopic Urinalysis Comment CATH-CULT NOT IND Vitamin B12 Level 814 White Blood Count 2.9 Red Blood Count 3.80 Hemoglobin 12.1 Hematocrit 35.8 Mean Corpuscular Volume 94.3 Mean Corpuscular Hemoglobin 31.8 Mean Corpuscular Hemoglobin 33.7 Concent Red Cell Distribution Width 13.8 Platelet Count 101 Mean Platelet Volume 8.0 Neutrophils (%) (Auto) 74.2 Lymphocytes (%) (Auto) 18.3 Monocytes (%) (Auto) 6.5 Eosinophils (%) (Auto) 0.2 Basophils (%) (Auto) 0.8 Neutrophils # (Auto) 2.1 Lymphocytes # (Auto) 0.5 Monocytes # (Auto) 0.2 Eosinophils # (Auto) 0.0 Basophils # (Auto) 0.0 CBC Comment DIFF FINAL Differential Comment Erythrocyte Sedimentation Rate 36 Sodium Level 138 Potassium Level 3.8 Chloride Level 105 Carbon Dioxide Level 21.7 Anion Gap 11 Blood Urea Nitrogen 9 Creatinine 1.03 Estimat Glomerular Filtration 72 Rate Random Glucose 77 Calcium Level 7.7 Lactate Dehydrogenase 236 Total Creatine Kinase 1923 Creatine Kinase MB 2.5 Creatine Kinase MB % 0.1 C-Reactive Protein 7.90 Random Cortisol 18.5 Date/Time Procedure Status Source Growth 07/31/16 16:37 Gram Stain - Final Resulted Sputum Expectorated Sputum 07/31/16 16:37 Sputum Culture Resulted Sputum Expectorated Sputum Pending 07/31/16 10:20 Aerobic Blood Culture - Preliminary Resulted Blood Peripheral NO GROWTH IN 1 DAY 07/31/16 10:20 Anaerobic Blood Culture - Preliminary Resulted Blood Peripheral NO GROWTH IN 1 DAY 07/31/16 10:15 Influenza Types A,B Antigen (LETICIA) - Final Complete Nasal Washing NEGATIVE FOR FLU A AND B ANTIGEN.... Result Diagram: 08/01/16 0813 08/01/16 0813 Imaging RADIOLOGY STUDIES/FILMS REVIEWED Chest X-Ray 07/31/16 1008 Signed Impressions: Service Date/Time: Sunday, July 31, 2016 10:30 - CONCLUSION: Normal examination. Julius Diaz MD Head CT 07/31/16 0000 Signed Impressions: Service Date/Time: Sunday, July 31, 2016 11:13 - CONCLUSION: Stable CT brain compared to the prior study. 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 Bharath Kathleen MD Assessment and Plan Assessment and Plan IMPRESSION Sepsis, source? - has cough - mild abdominal tenderness - ?primary bacteremia which can be seen in Strep infections Renal insufficiency due to sepsis, better Leukopenia, ?viral or due to severe sepsis Prob COPD, heavy tobacco use Rash with PCN Rhabdomyolysis RECOMMENDATION Continue vancomycin Add Levaquin Add cefepime Repeat 2 blood culture Get sedimentation rate and C-reactive protein Follow cultures Follow LFTs Follow CBC Monitor temps Monitor progress I will follow along with you and will make further recommendation depending on the results of the workup and his clinical course Thank you for this consultation Nallely Alcala MD Aug 01, 2016 12:32
[2016-08-01] MEDS: LEVOFLOXACIN 750 MG TAB PO SCH (14:11)
[2016-08-01] MEDS: ACETAMINOPHEN/HYDROcodone 325 MG/5 MG TAB PO PRN (14:11)
[2016-08-01] MEDS ORDERED: ACETAMINOPHEN 650 MG/20.3 ML UDC PO PRN (15:15)
--- NOTE | 2016-08-01 15:24 | RADRPT ---
EXAM DATE/TIME: 08/01/2016 13:22 [facility] COMPARISON: No previous studies available for comparison. INDICATIONS : Weakness in extremities. MEDICAL HISTORY : Hypertension. SURGICAL HISTORY : Cholecystectomy. Tonsillectomy. ENCOUNTER: Subsequent ACUITY: 2 day PAIN SCORE: 0/10 LOCATION: cranial TECHNIQUE: Multiplanar, multisequence MRI of the brain was performed without contrast. FINDINGS: CEREBRUM: The ventricles are normal for age. No evidence of midline shift, mass lesion, hemorrhage or acute in farction. No extraaxial fluid collections are seen. The pituitary gland and suprasellar cistern are normal in configuration. WHITE MATTER: No significant signal abnormalities are seen in the white matter. POSTERIOR FOSSA: The cerebellum and brainstem are intact. The 4th ventricle is midline. The cerebellopontine angle is unremarkable. The cerebellar tonsils are normal in position. DIFFUSION IMAGING: No focal areas of restricted diffusion are seen. No evidence of acute infarction. EXTRACRANIAL: The visualized portions of the orbits and paranasal sinuses are unremarkable. CONCLUSION: Unremarkable exam. No evidence of acute infarct, hemorrhage, mass or edema. Alden Peña MD on August 01, 2016 at 15:22 Board Certified Radiologist. This report was verified electronically.
--- NOTE | 2016-08-01 15:29 | RADRPT ---
EXAM DATE/TIME: 08/01/2016 13:22 [facility] COMPARISON: No previous studies available for comparison. INDICATIONS : Weakness in extremities. MEDICAL HISTORY : Hypertension. SURGICAL HISTORY : Cholecystectomy. Tonsillectomy. ENCOUNTER: Subsequent ACUITY: 2 day PAIN SCORE: 0/10 LOCATION: neck TECHNIQUE: Multiplanar, multisequence MRI examination of the cervical spine was performed. FINDINGS: Alignment: Cranial cervical and cervical vertebral body alignment are intact. There is no significant listhesis. Osseous structures and facet joints: Osseous structures are intact. There is no evidence of compression deformity, bone marrow edema or de structive changes. Mild facet arthropathy is seen bilaterally. Intervertebral disc spaces: Degenerative disc changes ranging from mild to moderate severity are noted. There is evidence of disc space narrowing with mild marginal spondylosis. There is no evidence of focal disc herniation, signi ficant foraminal encroachment or spinal stenosis. Neurologic structures: The spinal cord is normal in caliber and signal intensity. There is no evidence spinal stenosis. Ther e are no epidural or intradural masses. This noted is a 1 cm sebaceous cyst posteriorly at the base of the neck. CONCLUSION: Mild to moderate degenerative disc disease. No evidence of disc herniation, significant spinal stenosis or spinal cord abnormality. Alden Peña MD on August 01, 2016 at 15:23 Board Certified Radiologist. This report was verified electronically.
--- NOTE | 2016-08-01 15:50 | EKG ---
Date Performed: 07/31/2016 Time Performed: 10:14:47 PTAGE: 70 years EKG: Sinus rhythm Compared to prior tracing no significant change NORMAL ECG INTERPRETATION BASED ON A DEFAULT AGE OF 40 YEARS PREVIOUS TRACING : 12/04/2014 19.10 DOCTOR: Kendra Van Interpretating Date/Time 08/01/2016 15:46:44
[2016-08-01] MEDS: CEFEPIME INJ 2,000 MG in SODIUM CHLORIDE 0.9% INJ 100 ML IV SCH (16:08)
[2016-08-01] MEDS: ALPRAZolam 1 MG TAB PO PRN (18:21)
[2016-08-01] MEDS: ACETAMINOPHEN 325 MG TAB PO PRN (18:21)
[2016-08-01] MEDS: MIRTAZAPINE 15 MG TAB PO SCH (20:41)
[2016-08-01] MEDS: TAMSULOSIN HCL 0.4 MG CAP PO SCH (20:41)
[2016-08-02] VITALS (7 sets, daily range): BP systolic 118–151; BP diastolic 70–77; PULSE 64–87; RESP 18–22; TEMP 97.4–100.4; O2SAT 92–95
[2016-08-02] MEDS: CEFEPIME INJ 2,000 MG in SODIUM CHLORIDE 0.9% INJ 100 ML IV SCH ×2 (01:42→13:48)
[2016-08-02] MEDS: HEPARIN SODIUM - SQ 10,000 UNITS/ML VIAL SQ SCH (01:42)
[2016-08-02] MEDS: SODIUM CHLOR 0.9% 1000 ML INJ 1,000 ML IV SCH ×2 (03:59→13:49)
--- NOTE | 2016-08-02 05:25 | MG ---
cc: NIEVES ROCKWELL Lab No: Date: 08/01/2016 Age: 68 Sex: M Race: EEG [id number] IDENTIFYING DATA A 70-year-old man. NOTE Hyperventilation not performed. INDICATIONS Cortical atrophy, old left lacunar infarct, delusions, schizophrenia. MEDICATIONS 1. Protonix. 2. Mirtazapine. 3. Lyrica. 4. Prozac. FINDINGS A symmetric 8-9 Hz, 60 microvolt and diffuse rhythm is noted. The recording appears quite normal. There is no hemisphere asymmetries, no epileptiform or seizure activity was noted. Photic stimulation was performed without significant posterior driving. IMPRESSION A normal awake EEG. No evidence for a focal or diffuse abnormality. MD JESS Tinoco/LEW /11:55 PM /5:21 AM
[2016-08-02 07:34] LABS: HEMATOCRIT 35.5 % (39.0-51.0); MEAN CELL VOLUME 94.2 FL (80.0-100.0); MEAN CORPUSCULAR HEMOGLOBIN 32.1 PG (27.0-34.0); MEAN CORPUSCULAR HGB CONC 34.1 % (32.0-36.0); PLATELET COUNT 99 TH/MM3 (150-450); RED BLOOD COUNT 3.77 MIL/MM3 (4.50-5.90); RED CELL DISTRIBUTION WIDTH 14.1 % (11.6-17.2); WHITE BLOOD COUNT 2.5 TH/MM3 (4.0-11.0)
[2016-08-02] MEDS: RESP: ALBUTEROL 2.5 MG/IPRATROPIUM 0.5 MG NEB (SCH) NEB ×4 (07:34→20:00)
[2016-08-02 07:41] LABS: REVIEW FLAG FINAL
[2016-08-02 08:19] LABS: INDIRECT BILIRUBIN 0.3 MG/DL (0.0-0.8); TOTAL BILIRUBIN ADULT 0.4 MG/DL (0.2-1.0)
--- NOTE | 2016-08-02 08:29 | HHI.PR ---
Review/Management Diagnosis/Plan: (1) Generalized weakness Plan: may be 2/2 dehydration, poor po intake. could also have mild serotonin syndrome in the setting of multiple psychotropic medication use and arf r/o infection- has mild fevers. cxr negative. ct brain naicp. mild asterixis on exam, no focal weakness recs ? leukopenia- ? drug reaction vs viral. on iv abx; no fevers overnight could consider lp if no cause found, although likely low yield. another possibility is pmr/autoimmune condition causing cyclical temps/elevated esr, crp and weakness. we can consider trial of pred if no infectious cause identified and still with fevers/weakness will get ID input d/w medical follow exam (2) Renal insufficiency Plan: ivf (3) Depression Plan: seen by psych in the past (4) Tobacco abuse Plan: cessation d/w pt Subjective Subjective Comments No acute events reported; feels a generalized weakness, no numbness or tingling No headache No chest pain No dyspnea Active Medications Current Medications Medications (Trade) Dose Ordered Sig/Noe Route Start Time Stop Time Status Last Admin (NS 1000 ml Inj) 1,000 ml @ 100 mls/hr Q10H IV 07/31/16 13:18 08/02/16 03:59 (NS Flush) 2 ml UNSCH PRN FLUSH 07/31/16 13:30 (NS Flush) 2 ml BID FLUSH 07/31/16 21:00 08/01/16 20:42 (Colace) 100 mg Q12HR PO 07/31/16 13:30 08/01/16 20:41 (Heparin Inj) 5,000 units Q12H SQ 07/31/16 14:00 Hold 08/02/16 01:42 (Narcan Inj) 0.4 mg UNSCH PRN IV 07/31/16 13:30 (Mycostatin Liq) 5 ml QID SWISH-SWAL 07/31/16 18:00 08/01/16 20:41 Acetaminophen/ Hydrocodone Bitart 1 tab 1 tab Q4H PRN PO 07/31/16 18:15 08/01/16 14:11 (Vancomycin Consult Pharmacy) 0 ml @ 0 mls/hr UNSCH OTHER 07/31/16 21:45 (Xanax) 2 mg Q8H PRN PO 07/31/16 21:45 08/01/16 18:21 (PROzac) 20 mg DAILY PO 08/01/16 09:00 08/01/16 07:47 (Remeron) 45 mg HS PO 07/31/16 21:45 08/01/16 20:41 (Flomax) 0.4 mg HS PO 07/31/16 21:45 08/01/16 20:41 (Protonix) 40 mg DAILY PO 08/01/16 09:00 08/01/16 07:47 Pregabalin 75 mg 75 mg BID PO 08/01/16 09:00 08/01/16 20:41 (Vancomycin Inj/ NS 500 ml Inj) 515 ml @ 250 mls/hr Q12H IV 08/01/16 12:00 08/01/16 23:11 Miscellaneous Information SPECIFIC LAB TO BE DRAWN:VANCOMYCIN TROUGH DATE TO... ONCE ONCE XX 08/02/16 11:45 08/02/16 11:46 (Maxipime Inj/NS Inj) 100 ml @ 200 mls/hr Q12H IV 08/01/16 14:00 08/02/16 01:42 (Levaquin) 750 mg Q48H PO 08/01/16 15:00 08/01/16 14:11 (Tylenol) 650 mg Q6H PRN PO 08/01/16 18:13 08/01/16 18:21 Allergies Allergies Coded Allergies Penicillin (Verified Allergy, Intermediate, 01/23/15) Review of Systems All other ROS: ROS reviewed as documented in chart Exam I&O / VS 08/01/16 08/01/16 08/02/16 15:00 23:00 07:00 Output Total 1100 ml Balance -1100 ml Output Urine Total 1100 ml Vital Signs Date Time Temp Pulse Resp B/P Pulse Ox O2 Delivery O2 Flow Rate FiO2 08/02/16 08:00 97.4 68 20 143/70 93 08/02/16 04:18 97.6 69 20 140/70 95 08/01/16 23:34 98.6 67 20 142/69 95 08/01/16 21:31 14 08/01/16 20:00 74 08/01/16 19:50 99.0 78 20 111/59 95 08/01/16 17:49 99.0 08/01/16 15:34 101.4 95 20 128/69 92 08/01/16 15:28 18 08/01/16 14:22 101.7 08/01/16 11:21 98.8 102 18 122/61 91 08/01/16 09:10 18 General: Alert and Oriented, No acute distress Eye: EOMI Respiratory: Non-labored respirations Cardiology: Normal rate Musculoskeletal: ROM Neurologic: Alert, Oriented, Normal sensory, CN II-XII intact, Gag reflex normal, Normal DTR's Psychiatric: Cooperative, Appropriate mood & affect Exam Comments alert, ox 3. pres Trump, follows, no temp tenderness, neck supple, eomi, face sym, vff, mild ue asterixis, able to raise all 4 ext to gravity but generalized weakness 4/5, msr symmetric trace to 1+, no clonus, planterflexor Objective Micro and Labs Laboratory Tests Test 08/01/16 08/02/16 08/02/16 14:25 07:04 07:09 C-Reactive Protein 7.72 Total Bilirubin 0.4 Direct Bilirubin 0.1 Indirect Bilirubin 0.3 Aspartate Amino Transf 70 (AST/SGOT) Alanine Aminotransferase 20 (ALT/SGPT) Alkaline Phosphatase 42 Total Creatine Kinase 1625 Total Protein 5.3 Albumin 2.5 White Blood Count 2.5 Red Blood Count 3.77 Hemoglobin 12.1 Hematocrit 35.5 Mean Corpuscular Volume 94.2 Mean Corpuscular Hemoglobin 32.1 Mean Corpuscular Hemoglobin 34.1 Concent Red Cell Distribution Width 14.1 Platelet Count 99 Mean Platelet Volume 8.2 Date/Time Procedure Status Source Growth 08/01/16 14:35 Aerobic Blood Culture Received Blood Peripheral Pending 08/01/16 14:35 Anaerobic Blood Culture Received Blood Peripheral Pending 07/31/16 16:37 Gram Stain - Final Resulted Sputum Expectorated Sputum 07/31/16 16:37 Sputum Culture - Preliminary Resulted Sputum Expectorated Sputum HEAVY GROWTH NORMAL RESPIRATORY SAURABH... 07/31/16 10:20 Aerobic Blood Culture - Preliminary Resulted Blood Peripheral NO GROWTH IN 1 DAY 07/31/16 10:20 Anaerobic Blood Culture - Preliminary Resulted Blood Peripheral NO GROWTH IN 1 DAY 07/31/16 10:15 Influenza Types A,B Antigen (LETICIA) - Final Complete Nasal Washing NEGATIVE FOR FLU A AND B ANTIGEN.... Problem Qualifiers (1) Depression: Marco Gould MD Aug 02, 2016 08:29
[2016-08-02] MEDS: SODIUM CHLORIDE 0.9% FLUSH 5 ML FLUSH FLUSH SCH ×2 (09:00→21:27)
--- NOTE | 2016-08-02 09:04 | HHI.PR ---
Subjective Subjective Remarks c/o feeling weak legs painful to touch, muscles and joints low grade fever 99 no cp no sob coughing, some sputum, not sure of color Review of Systems Constitutional Constitutional Remarks 12 point ROS completed, negative except as noted above Vitals/Results Intake & Output 08/01/16 08/01/16 08/02/16 15:00 23:00 07:00 Output Total 1100 ml Balance -1100 ml Output Urine Total 1100 ml Vital Signs Vital Signs Date Time Temp Pulse Resp B/P Pulse Ox O2 Delivery O2 Flow Rate FiO2 08/02/16 08:00 97.4 68 20 143/70 93 08/02/16 04:18 97.6 69 20 140/70 95 08/01/16 23:34 98.6 67 20 142/69 95 08/01/16 21:31 14 08/01/16 20:00 74 08/01/16 19:50 99.0 78 20 111/59 95 08/01/16 17:49 99.0 08/01/16 15:34 101.4 95 20 128/69 92 08/01/16 15:28 18 08/01/16 14:22 101.7 08/01/16 11:21 98.8 102 18 122/61 91 08/01/16 09:10 18 CBC/BMP: 08/02/16 0709 08/01/16 0813 Lab Results Laboratory Tests Test 08/01/16 08/02/16 08/02/16 14:25 07:04 07:09 C-Reactive Protein 7.72 MG/DL Total Bilirubin 0.4 MG/DL Direct Bilirubin 0.1 MG/DL Indirect Bilirubin 0.3 MG/DL Aspartate Amino Transf 70 U/L (AST/SGOT) Alanine Aminotransferase 20 U/L (ALT/SGPT) Alkaline Phosphatase 42 U/L Total Creatine Kinase 1625 U/L Creatine Kinase MB 2.0 NG/ML Creatine Kinase MB % 0.1 % Total Protein 5.3 GM/DL Albumin 2.5 GM/DL White Blood Count 2.5 TH/MM3 Red Blood Count 3.77 MIL/MM3 Hemoglobin 12.1 GM/DL Hematocrit 35.5 % Mean Corpuscular Volume 94.2 FL Mean Corpuscular Hemoglobin 32.1 PG Mean Corpuscular Hemoglobin 34.1 % Concent Red Cell Distribution Width 14.1 % Platelet Count 99 TH/MM3 Mean Platelet Volume 8.2 FL Microbiology Microbiology 08/01/16 Aerobic Blood Culture, Received Pending 08/01/16 Anaerobic Blood Culture, Received Pending 08/01/16 Aerobic Blood Culture, Received Pending 08/01/16 Anaerobic Blood Culture, Received Pending Physical Exam General General Appearance: Well Developed, No Acute Distress, Comfortable Eyes Eye Exam: Pupils Equal, Pupils Reactive Ears & Nose Ears & Nose Exam: Nasal Mucosa [place] Throat Throat Exam: Oral Mucosa [place] & Moist Neck Neck Exam: Neck Supple, Trachea Midline Pulmonary Resp Exam: Sputum Resp Remarks ronchi RML, RLL diminished LLL Cardiology CV Exam: Regular Gastrointestinal/Abdomen GI Exam: Soft, Non-Tender, Bowel Sounds Present, Non-Distended Musculoskeletal MS Exam: Joints Intact Integumentary Skin Exam: Warm, Dry Extremeties Extremities Exam: No Edema, Pedal Pulses Palpable Neurologic Neuro Exam: Alert, Awake, Oriented, Speech Clear, Moving All Extremities, No Focal Deficits Psychiatric Psych Exam: Appropriate Responses VTE Prophylaxis VTE Prophylaxis Meds: Heparin PUD Prophylasis PUD Prophylaxis: Protonix Assessment/Plan Problem List: (1) Generalized weakness (2) Rhabdomyolysis (3) Tobacco abuse (4) COPD (chronic obstructive pulmonary disease) (5) Renal insufficiency (6) Depression (7) Fever (8) Leukopenia (9) History of CVA (cerebrovascular accident) Assessment/Plan continue with IVF neuro work up in progress imaging studies reviewed, old CVA, no new findings appreciate neuro input, D/W Dr. Gould, poss. due to dehydration vs mild serotonin syndrom, noted with leukopenia ? med induced vs viral. Agrees with ID input. Hold off on LP for now if no other cause for fever. Consider polymyalgia rheumatica poss. PO steroids will order Echo EEG negative Appreciate ID input continue with empiric abx no fever leukopenia today, monitor WBC cultures pending, continue to follow noted with elevated CPK, rhabdo monitor renal function, improving continue with IVF PT eval and tx and OOB today Tobacco abuse counseling Duonebs QID Hold heparin in case he needs LP SCDs for DVT prophylaxis PPI for GI prophylaxis Labs in am Change to inpatient, weakness, SHAYNA, fever unknown etiology. Risk fo sepsis, septic shock, further disability. Pt. of advanced age and comorbidities. Needs further evaluation, IVF, PT, poss. rehab, poss. LP. Anticipated dc to home with C vs SNF when stable D/W RN D/W Dr. Urena D/W pt This pt was seen by myself and Dr. Urena, this note is written on his behalf. Problem Qualifiers (1) Rhabdomyolysis: Qualified Code: M62.82 - Non-traumatic rhabdomyolysis (2) COPD (chronic obstructive pulmonary disease): Qualified Code: J42 - Chronic bronchitis, unspecified chronic bronchitis type (3) Depression: (4) Fever: Qualified Code: R50.9 - Fever, unspecified fever cause (5) Leukopenia: Qualified Code: D72.819 - Leukopenia, unspecified type Oxana Sorenson Aug 02, 2016 09:04
[2016-08-02] MEDS: PREGABALIN 75 MG CAP PO SCH ×2 (09:16→21:27)
[2016-08-02] MEDS: PANTOPRAZOLE SOD 40 MG DELAYED RELEASE TAB PO SCH (09:16)
[2016-08-02] MEDS: NYSTATIN SUSP 500,000 U/5 ML CUP SWISH-SWAL SCH ×4 (09:16→21:26)
[2016-08-02] MEDS: FLUoxetine HCL 20 MG CAP PO SCH (09:16)
[2016-08-02] MEDS: DOCUSATE SODIUM 100 MG CAP PO SCH ×2 (09:17→21:27)
[2016-08-02] MEDS ORDERED: PHARMACY ORDERED LAB XX ONE (11:45)
[2016-08-02] MEDS: VANCOMYCIN INJ 1,500 MG in SODIUM CHLORID 0.9% 500 ML INJ 500 ML IV SCH (12:56)
--- NOTE | 2016-08-02 14:37 | HHI.IDPN ---
Subjective Subjective Remarks Notes reviewed Febrile yesterday Temps better today C/O muscle pains in both thighs Having tremors ESR 36 CRP 7.72 Patient lives in his own apartment No sexual activity since the No GF No exposure to any sick child No one sick in complex where he lives No travel No outdoor activity Antibiotics Cefepime Levaquin Vancomycin Lines PIV Past Medical History Anxiety, depression There is mention of schizophrenia Hard of hearing Chronic smoker, possible COPD Past Surgical History Cholecystectomy Allergies: Coded Allergies: Penicillin (Verified Allergy, Intermediate, 01/23/15) Objective . Vital Signs Date Time Temp Pulse Resp B/P Pulse Ox O2 Delivery O2 Flow Rate FiO2 08/02/16 12:00 98.1 64 18 138/72 94 08/02/16 08:00 97.4 68 20 143/70 93 08/02/16 08:00 73 08/02/16 04:18 97.6 69 20 140/70 95 08/01/16 23:34 98.6 67 20 142/69 95 08/01/16 21:31 14 08/01/16 20:00 74 08/01/16 19:50 99.0 78 20 111/59 95 08/01/16 17:49 99.0 08/01/16 15:34 101.4 95 20 128/69 92 08/01/16 15:28 18 08/01/16 08/01/16 08/02/16 15:00 23:00 07:00 Output Total 1100 ml Balance -1100 ml Output Urine Total 1100 ml . Laboratory Tests Test 08/01/16 08/02/16 08:13 07:09 White Blood Count 2.9 TH/MM3 2.5 TH/MM3 Red Blood Count 3.80 MIL/MM3 3.77 MIL/MM3 Hemoglobin 12.1 GM/DL 12.1 GM/DL Hematocrit 35.8 % 35.5 % Mean Corpuscular Volume 94.3 FL 94.2 FL Mean Corpuscular Hemoglobin 31.8 PG 32.1 PG Mean Corpuscular Hemoglobin 33.7 % 34.1 % Concent Red Cell Distribution Width 13.8 % 14.1 % Platelet Count 101 TH/MM3 99 TH/MM3 Mean Platelet Volume 8.0 FL 8.2 FL Neutrophils (%) (Auto) 74.2 % Lymphocytes (%) (Auto) 18.3 % Monocytes (%) (Auto) 6.5 % Eosinophils (%) (Auto) 0.2 % Basophils (%) (Auto) 0.8 % Neutrophils # (Auto) 2.1 TH/MM3 Lymphocytes # (Auto) 0.5 TH/MM3 Monocytes # (Auto) 0.2 TH/MM3 Eosinophils # (Auto) 0.0 TH/MM3 Basophils # (Auto) 0.0 TH/MM3 CBC Comment DIFF FINAL Differential Comment Erythrocyte Sedimentation Rate 36 mm/hr Laboratory Tests Test 07/31/16 08/01/16 08/01/16 08/02/16 18:30 08:13 14:25 07:04 Vitamin B12 Level 814 PG/ML Sodium Level 138 MEQ/L Potassium Level 3.8 MEQ/L Chloride Level 105 MEQ/L Carbon Dioxide Level 21.7 MEQ/L Anion Gap 11 MEQ/L Blood Urea Nitrogen 9 MG/DL Creatinine 1.03 MG/DL Estimat Glomerular Filtration 72 ML/MIN Rate Random Glucose 77 MG/DL Calcium Level 7.7 MG/DL Lactate Dehydrogenase 236 U/L Total Creatine Kinase 1923 U/L 1625 U/L Creatine Kinase MB 2.5 NG/ML 2.0 NG/ML Creatine Kinase MB % 0.1 % 0.1 % C-Reactive Protein 7.90 MG/DL 7.72 MG/DL Random Cortisol 18.5 MCG/DL Total Bilirubin 0.4 MG/DL Direct Bilirubin 0.1 MG/DL Indirect Bilirubin 0.3 MG/DL Aspartate Amino Transf 70 U/L (AST/SGOT) Alanine Aminotransferase 20 U/L (ALT/SGPT) Alkaline Phosphatase 42 U/L Total Protein 5.3 GM/DL Albumin 2.5 GM/DL Microbiology Date/Time Procedure Status Source Growth 07/31/16 10:15 Aerobic Blood Culture - Preliminary Resulted Blood Peripheral NO GROWTH IN 2 DAYS 07/31/16 10:15 Anaerobic Blood Culture - Preliminary Resulted Blood Peripheral NO GROWTH IN 2 DAYS 07/31/16 10:15 Influenza Types A,B Antigen (LETICIA) - Final Complete Nasal Washing NEGATIVE FOR FLU A AND B ANTIGEN.... 07/31/16 10:20 Aerobic Blood Culture - Preliminary Resulted Blood Peripheral NO GROWTH IN 2 DAYS 07/31/16 10:20 Anaerobic Blood Culture - Preliminary Resulted Blood Peripheral NO GROWTH IN 2 DAYS 07/31/16 16:37 Gram Stain - Final Complete Sputum Expectorated Sputum 07/31/16 16:37 Sputum Culture - Final Complete Sputum Expectorated Sputum HEAVY GROWTH NORMAL RESPIRATORY SAURABH 08/01/16 14:25 Aerobic Blood Culture - Preliminary Resulted Blood Peripheral NO GROWTH IN 1 DAY 08/01/16 14:25 Anaerobic Blood Culture - Preliminary Resulted Blood Peripheral NO GROWTH IN 1 DAY 08/01/16 14:35 Aerobic Blood Culture - Preliminary Resulted Blood Peripheral NO GROWTH IN 1 DAY 08/01/16 14:35 Anaerobic Blood Culture - Preliminary Resulted Blood Peripheral NO GROWTH IN 1 DAY Imaging Cervical Spine MRI [id number]/[id number] Signed Impressions: Service Date/Time: Monday, August 01, 2016 13:22 - CONCLUSION: Mild to moderate degenerative disc disease. No evidence of disc herniation, significant spinal stenosis or spinal cord abnormality. Alden Peña MD Brain MRI 08/01/[id number] Signed Impressions: Service Date/Time: Monday, August 01, 2016 13:22 - CONCLUSION: Unremarkable exam. No evidence of acute infarct, hemorrhage, mass or edema. Alden Peña MD Chest X-Ray 07/31/16 1008 Signed Impressions: Service Date/Time: Sunday, July 31, 2016 10:30 - CONCLUSION: Normal examination. Julius Diaz MD Head CT 07/31/16 0000 Signed Impressions: Service Date/Time: Sunday, July 31, 2016 11:13 - CONCLUSION: Stable CT brain compared to the prior study. 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 Bharath Kathleen MD Physical Exam GENERAL: awake and alert, looks acutely ill appearing, having rigors at the time my exam. SKIN: Warm and dry. No generalized rash or ecchymosis. HEENT: [place] conjunctivae, no petechia or hemorrhage. No scleral icterus. No injection or drainage. Moist oral mucosa. He is edentulous. Throat without erythema, or exudate. Uvula midline. Airway patent. NECK: Trachea midline. No JVD or lymphadenopathy. Supple, nontender, no meningeal signs. CARDIOVASCULAR: Regular rate and rhythm without murmurs, gallops, or rubs. RESPIRATORY: Clear to auscultation. Breath sounds equal bilaterally. No wheezes , rales, or rhonchi. GASTROINTESTINAL: Abdomen soft, nondistended, has mild diffuse tenderness. No guarding or rebound.. No hepato-splenomegaly, or palpable masses. MUSCULOSKELETAL: Extremities without clubbing, cyanosis, or edema. No joint tenderness, or effusion. Good ROM all joints. No calf tenderness. Has some tenderness on palpation of his thighs, more on R, but no visible erythema, induration or swelling NEUROLOGICAL: Awake and alert. Cranial nerves II through XII intact. Motor and sensory grossly within normal limit. No localized weakness. Normal speech. PSYCH: Calm and cooperative LINE: PIV with no evidence of infection Assessment & Plan Remarks IMPRESSION Sepsis, source? - has cough - mild abdominal tenderness - ?primary bacteremia which can be seen in Strep infections Renal insufficiency due to sepsis, better Leukopenia, ?viral or due to severe sepsis Prob COPD, heavy tobacco use Rash with PCN Rhabdomyolysis RECOMMENDATION Continue vancomycin Continue Levaquin Continue cefepime Follow cultures Follow LFTs Follow CBC Monitor temps Monitor progress Nallely Alcala MD Aug 02, 2016 14:37
--- NOTE | 2016-08-02 15:56 | EC ---
Study Study Date:08/02/2016 STUDY CONCLUSIONS SUMMARY - Left ventricle: The cavity size was normal. Wall thickness was at the upper limits of normal. Systolic function was normal. The estimated ejection fraction was in the range of 60% to 65%. Wall motion was normal; there were no regional wall motion abnormalities. - Tricuspid valve: Mild regurgitation. - Pulmonary arteries: PA peak pressure: 62mm Hg (S). If LV function is below 40, please consider prescribing an ACEI or ARB or document rationale for non-use. PROCEDURE DATA STUDY STATUS: Elective. Procedure: Transthoracic echocardiography. Image quality was good. Scanning was performed from the parasternal, apical, and subcostal acoustic windows. Study completion: The patient tolerated the procedure well. Transthoracic echocardiography. M-mode, complete 2D, complete spectral Doppler, and color Doppler. Patient status: Inpatient. CARDIAC ANATOMY LEFT VENTRICLE: The cavity size was normal. Wall thickness was at the upper limits of normal. Systolic function was normal. The estimated ejection fraction was in the range of 60% to 65%. Wall motion was normal; there were no regional wall motion abnormalities. AORTIC VALVE: The valve appears to be grossly normal. Doppler: There was no stenosis. No significant regurgitation. MITRAL VALVE: The valve appears to be grossly normal. Doppler: There was no evidence for stenosis. Trace regurgitation. LEFT ATRIUM: The atrium was normal in size. RIGHT VENTRICLE: The cavity size was normal. Systolic function was normal. PULMONIC VALVE: Not well visualized. Doppler: There was no evidence for stenosis. No significant regurgitation. TRICUSPID VALVE: The valve appears to be grossly normal. Doppler: There was no evidence for stenosis. Mild regurgitation. RIGHT ATRIUM: The atrium was normal in size. PERICARDIUM: There was no pericardial effusion. BASIC MEASUREMENTS ADULT Normal Left ventricle LV internal dimension, ED, chordal level, 43.7 mm 43-52 PLAX LV internal dimension, ES, chordal level, 31.8 mm 23-38 PLAX Fractional shortening, chordal level, PLAX *27 % >29 LV posterior wall thickness, ED 9.2 mm IVS/LVPW ratio, ED *1.33 <1.3 Ventricular septum Septal thickness, ED 12.2 mm Aortic valve Leaflet separation 22 mm 15-26 Right ventricle RV internal dimension, ED, PLAX 26.8 mm 19-38 BASIC MEASUREMENTS ADULT Normal Aortic valve Leaflet separation 22 mm 15-26 Aorta Root diameter, ED *41 mm 20-37 Left atrium Anterior-posterior dimension, ES 38 mm 19-40 LA/aortic root ratio 0.93 DOPPLER MEASUREMENTS ADULT Normal Main pulmonary artery Pressure, S *62 mm Hg =30 Tricuspid valve Regurgitant peak velocity 279 cm/s Peak RV-RA gradient, S 31 mm Hg Maximal regurgitant velocity 279 cm/s Systemic veins Estimated CVP 10 mm Hg Right ventricle RV pressure, S *62 mm Hg <30 LEGEND: Mean values are shown as u=mean value. Asterisk (*) souza values outside specified normal range. Prepared and signed by Jay Quiñones [id number]
[2016-08-02] MEDS: ALPRAZolam 1 MG TAB PO PRN (17:33)
[2016-08-02] MEDS: ACETAMINOPHEN/HYDROcodone 325 MG/5 MG TAB PO PRN ×2 (17:33→21:31)
[2016-08-02] MEDS: MIRTAZAPINE 15 MG TAB PO SCH (21:27)
[2016-08-02] MEDS: TAMSULOSIN HCL 0.4 MG CAP PO SCH (21:27)
[2016-08-03] VITALS (8 sets, daily range): BP systolic 108–181; BP diastolic 57–99; PULSE 73–107; RESP 16–18; TEMP 97.8–100.4; O2SAT 90–96
[2016-08-03] MEDS: VANCOMYCIN INJ 1,750 MG in SODIUM CHLORID 0.9% 500 ML INJ 500 ML IV SCH ×2 (00:25→12:01)
[2016-08-03] MEDS: CEFEPIME INJ 2,000 MG in SODIUM CHLORIDE 0.9% INJ 100 ML IV SCH ×2 (02:10→13:20)
[2016-08-03] MEDS: SODIUM CHLOR 0.9% 1000 ML INJ 1,000 ML IV SCH ×3 (02:12→21:09)
[2016-08-03] MEDS: ALPRAZolam 1 MG TAB PO PRN ×2 (04:52→17:51)
[2016-08-03] MEDS: RESP: ALBUTEROL 2.5 MG/IPRATROPIUM 0.5 MG NEB (SCH) NEB ×4 (07:29→20:53)
[2016-08-03 07:43] LABS: HEMATOCRIT 39.3 % (39.0-51.0); MEAN CELL VOLUME 94.9 FL (80.0-100.0); MEAN CORPUSCULAR HEMOGLOBIN 31.8 PG (27.0-34.0); MEAN CORPUSCULAR HGB CONC 33.5 % (32.0-36.0); PLATELET COUNT 104 TH/MM3 (150-450); RED BLOOD COUNT 4.14 MIL/MM3 (4.50-5.90); REVIEW FLAG FINAL; WHITE BLOOD COUNT 3.9 TH/MM3 (4.0-11.0)
--- NOTE | 2016-08-03 07:55 | HHI.PR ---
Review/Management Diagnosis/Plan: (1) Generalized weakness Plan: may be 2/2 dehydration, poor po intake. could also have mild serotonin syndrome in the setting of multiple psychotropic medication use and arf r/o infection- has mild fevers. cxr negative. ct brain naicp. doing better recs ? leukopenia- ? drug reaction vs viral- further work-up per i.d/medical doing better; is stronger; had temp spike yesterday afternoon lp likely low yield with absence of meningeal signs and improvement clinical status. consideration of po steroids, however, is better this am follow exam (2) Renal insufficiency Plan: ivf (3) Depression Plan: seen by psych in the past (4) Tobacco abuse Plan: cessation d/w pt Subjective Subjective Comments No acute events reported; " i feel stronger, i was able to get up and walk around" No headache No chest pain No dyspnea Active Medications Current Medications Medications (Trade) Dose Ordered Sig/Noe Route Start Time Stop Time Status Last Admin (NS 1000 ml Inj) 1,000 ml @ 100 mls/hr Q10H IV 07/31/16 13:18 08/03/16 02:12 (NS Flush) 2 ml UNSCH PRN FLUSH 07/31/16 13:30 (NS Flush) 2 ml BID FLUSH 07/31/16 21:00 08/02/16 21:27 (Colace) 100 mg Q12HR PO 07/31/16 13:30 08/02/16 21:27 (Heparin Inj) 5,000 units Q12H SQ 07/31/16 14:00 Hold 08/02/16 01:42 (Narcan Inj) 0.4 mg UNSCH PRN IV 07/31/16 13:30 (Mycostatin Liq) 5 ml QID SWISH-SWAL 07/31/16 18:00 08/02/16 21:26 Acetaminophen/ Hydrocodone Bitart 1 tab 1 tab Q4H PRN PO 07/31/16 18:15 08/02/16 21:31 (Vancomycin Consult Pharmacy) 0 ml @ 0 mls/hr UNSCH OTHER 07/31/16 21:45 (Xanax) 2 mg Q8H PRN PO 07/31/16 21:45 08/03/16 04:52 (PROzac) 20 mg DAILY PO 08/01/16 09:00 08/02/16 09:16 (Remeron) 45 mg HS PO 07/31/16 21:45 08/02/16 21:27 (Flomax) 0.4 mg HS PO 07/31/16 21:45 08/02/16 21:27 (Protonix) 40 mg DAILY PO 08/01/16 09:00 08/02/16 09:16 Pregabalin 75 mg 75 mg BID PO 08/01/16 09:00 08/02/16 21:27 (Maxipime Inj/NS Inj) 100 ml @ 200 mls/hr Q12H IV 08/01/16 14:00 08/03/16 02:10 (Levaquin) 750 mg Q48H PO 08/01/16 15:00 08/01/16 14:11 Acetaminophen 650 mg 650 mg Q6H PRN PO 08/01/16 18:13 08/01/16 18:21 (Vancomycin Inj/ NS 500 ml Inj) 517.5 ml @ 250 mls/hr Q12H IV 08/03/16 00:00 08/03/16 00:25 Miscellaneous Information SPECIFIC LAB TO BE DRAWN:VANCOMYCIN TROUGH DATE TO... ONCE ONCE XX 08/04/16 11:45 08/04/16 11:46 Allergies Allergies Coded Allergies Penicillin (Verified Allergy, Intermediate, 01/23/15) Review of Systems All other ROS: ROS reviewed as documented in chart Exam I&O / VS 08/02/16 08/02/16 08/03/16 15:00 23:00 07:00 Intake Total 1680 ml 240 ml Output Total 990 ml 1200 ml Balance 690 ml -960 ml Intake Oral 480 ml 240 ml IV Total 1200 ml Output Urine Total 990 ml 1200 ml # Bowel Movements 0 Vital Signs Date Time Temp Pulse Resp B/P Pulse Ox O2 Delivery O2 Flow Rate FiO2 08/03/16 04:24 97.8 82 18 110/76 96 08/02/16 23:00 84 08/02/16 23:00 84 08/02/16 22:27 14 08/02/16 22:27 14 08/02/16 20:03 97.6 80 22 118/71 92 08/02/16 16:04 100.4 87 22 151/77 95 08/02/16 15:00 79 08/02/16 12:00 98.1 64 18 138/72 94 08/02/16 08:00 97.4 68 20 143/70 93 08/02/16 08:00 73 08/02/16 08:00 72 General: Alert and Oriented, No acute distress Eye: EOMI Respiratory: Non-labored respirations Cardiology: Normal rate Musculoskeletal: ROM Neurologic: Alert, Oriented, Normal sensory, CN II-XII intact, Gag reflex normal, Normal DTR's Psychiatric: Cooperative, Appropriate mood & affect Exam Comments alert, ox 3. pres [place], neck supple, eomi, face sym, vff, mild ue asterixis, able to raise all 4 ext to gravity but generalized weakness 5/5, msr symmetric trace to 1+, no clonus, planterflexor Objective Micro and Labs Laboratory Tests Test 08/02/16 08/03/16 11:45 06:20 Vancomycin Level Trough 12.2 White Blood Count 3.9 Red Blood Count 4.14 Hemoglobin 13.2 Hematocrit 39.3 Mean Corpuscular Volume 94.9 Mean Corpuscular Hemoglobin 31.8 Mean Corpuscular Hemoglobin 33.5 Concent Red Cell Distribution Width 14.0 Platelet Count 104 Mean Platelet Volume 8.4 Date/Time Procedure Status Source Growth 08/01/16 14:35 Aerobic Blood Culture - Preliminary Resulted Blood Peripheral NO GROWTH IN 1 DAY 08/01/16 14:35 Anaerobic Blood Culture - Preliminary Resulted Blood Peripheral NO GROWTH IN 1 DAY 07/31/16 16:37 Gram Stain - Final Complete Sputum Expectorated Sputum 07/31/16 16:37 Sputum Culture - Final Complete Sputum Expectorated Sputum HEAVY GROWTH NORMAL RESPIRATORY SAURABH 07/31/16 10:15 Influenza Types A,B Antigen (LETICIA) - Final Complete Nasal Washing NEGATIVE FOR FLU A AND B ANTIGEN.... Problem Qualifiers (1) Depression: Marco Gould MD Aug 03, 2016 07:55
[2016-08-03 08:24] LABS: BICARBONATE 23.6 MEQ/L (21.0-32.0); POTASSIUM 3.6 MEQ/L (3.5-5.1)
--- NOTE | 2016-08-03 08:41 | HHI.PR ---
Subjective Subjective Remarks feels better today, has been ambulating without assistance mild tremors legs less tender fever last night 100.4 legs painful to touch, muscles and joints some cough, mild wheezing more awake, oriented x 3 no cp no sob Review of Systems Constitutional Constitutional Remarks 12 point ROS completed, negative except as noted above Vitals/Results Intake & Output 08/02/16 08/02/16 08/03/16 15:00 23:00 07:00 Intake Total 1680 ml 240 ml Output Total 990 ml 1200 ml Balance 690 ml -960 ml Intake Oral 480 ml 240 ml IV Total 1200 ml Output Urine Total 990 ml 1200 ml # Bowel Movements 0 Vital Signs Vital Signs Date Time Temp Pulse Resp B/P Pulse Ox O2 Delivery O2 Flow Rate FiO2 08/03/16 04:24 97.8 82 18 110/76 96 08/02/16 23:00 84 08/02/16 23:00 84 08/02/16 22:27 14 08/02/16 22:27 14 08/02/16 20:03 97.6 80 22 118/71 92 08/02/16 16:04 100.4 87 22 151/77 95 08/02/16 15:00 79 08/02/16 12:00 98.1 64 18 138/72 94 CBC/BMP: 08/03/16 0620 08/03/16 0620 Lab Results Laboratory Tests Test 08/02/16 08/03/16 11:45 06:20 Vancomycin Level Trough 12.2 MCG/ML White Blood Count 3.9 TH/MM3 Red Blood Count 4.14 MIL/MM3 Hemoglobin 13.2 GM/DL Hematocrit 39.3 % Mean Corpuscular Volume 94.9 FL Mean Corpuscular Hemoglobin 31.8 PG Mean Corpuscular Hemoglobin 33.5 % Concent Red Cell Distribution Width 14.0 % Platelet Count 104 TH/MM3 Mean Platelet Volume 8.4 FL Sodium Level 138 MEQ/L Potassium Level 3.6 MEQ/L Chloride Level 105 MEQ/L Carbon Dioxide Level 23.6 MEQ/L Anion Gap 9 MEQ/L Blood Urea Nitrogen 5 MG/DL Creatinine 0.75 MG/DL Estimat Glomerular Filtration 104 ML/MIN Rate Random Glucose 87 MG/DL Calcium Level 8.3 MG/DL Physical Exam General General Appearance: Well Developed, No Acute Distress, Comfortable Eyes Eye Exam: Pupils Equal, Pupils Reactive Ears & Nose Ears & Nose Exam: Nasal Mucosa [place] Throat Throat Exam: Oral Mucosa [place] & Moist Neck Neck Exam: Neck Supple, Trachea Midline Pulmonary Resp Exam: Sputum Resp Remarks exp. wheezes, faint ronchi bases Cardiology CV Exam: Regular Gastrointestinal/Abdomen GI Exam: Soft, Non-Tender, Bowel Sounds Present, Non-Distended Musculoskeletal MS Exam: Joints Intact Integumentary Skin Exam: Warm, Dry Extremeties Extremities Exam: No Edema, Pedal Pulses Palpable Neurologic Neuro Exam: Alert, Awake, Oriented, Speech Clear, Moving All Extremities, No Focal Deficits Neuro Remarks improved strength UE and LE 4/5 Psychiatric Psych Exam: Appropriate Responses VTE Prophylaxis VTE Prophylaxis Meds: Heparin PUD Prophylasis PUD Prophylaxis: Protonix Assessment/Plan Problem List: (1) Generalized weakness (2) Rhabdomyolysis (3) Tobacco abuse (4) COPD (chronic obstructive pulmonary disease) (5) Renal insufficiency (6) Depression (7) Fever (8) Leukopenia (9) History of CVA (cerebrovascular accident) Assessment/Plan continue with IVF imaging studies reviewed, old CVA, no new findings appreciate neuro input, D/W Dr. Gould, poss. due to dehydration vs mild serotonin syndrome, noted with leukopenia ? med induced vs viral. Agrees with ID input. Hold off on LP for now if no other cause for fever. Consider polymyalgia rheumatica poss. PO steroids. Pt. improved, recommends to hold LP Echo done, EF 35-40% EEG negative overall improving, ambulating continue with PT Appreciate ID input continue with empiric abx fever last night leukopenia improving platelets also coming up cultures pending, continue to follow noted with elevated CPK, rhabdo monitor renal function, improving continue with IVF CPK pending Tobacco abuse counseling Duonebs QID SCDs for DVT prophylaxis, avoid Heparin due to low platelets PPI for GI prophylaxis Improving, however he did spike fever, continue with above treatment Labs in am D/W RN D/W Dr. Urena D/W pt This pt was seen by myself and Dr. Urena, this note is written on his behalf. Problem Qualifiers (1) Rhabdomyolysis: Qualified Code: M62.82 - Non-traumatic rhabdomyolysis (2) COPD (chronic obstructive pulmonary disease): Qualified Code: J42 - Chronic bronchitis, unspecified chronic bronchitis type (3) Depression: (4) Fever: Qualified Code: R50.9 - Fever, unspecified fever cause (5) Leukopenia: Qualified Code: D72.819 - Leukopenia, unspecified type Oxana Sorenson Aug 03, 2016 08:41
[2016-08-03] MEDS: PREGABALIN 75 MG CAP PO SCH ×2 (08:53→21:09)
[2016-08-03] MEDS: SODIUM CHLORIDE 0.9% FLUSH 5 ML FLUSH FLUSH SCH ×2 (08:53→21:09)
[2016-08-03] MEDS: FLUoxetine HCL 20 MG CAP PO SCH (08:53)
[2016-08-03] MEDS: PANTOPRAZOLE SOD 40 MG DELAYED RELEASE TAB PO SCH (08:53)
[2016-08-03] MEDS: NYSTATIN SUSP 500,000 U/5 ML CUP SWISH-SWAL SCH ×4 (08:53→21:09)
[2016-08-03] MEDS: DOCUSATE SODIUM 100 MG CAP PO SCH ×2 (08:53→21:09)
[2016-08-03] MEDS: LEVOFLOXACIN 750 MG TAB PO SCH (13:20)
--- NOTE | 2016-08-03 14:50 | HHI.IDPN ---
Subjective Subjective Remarks Notes reviewed Occ low grade temps Myalgias better, walked in hallways Anxious cholo he is not getting his usual meds, and not eating well because food is different from what he has at home Nothing new on C/S, all negative so far Not SOB No diarrhea No rash or itching ESR 36 CRP 7.72 WBC is higher Antibiotics Cefepime Levaquin Vancomycin Lines PIV Past Medical History Anxiety, depression There is mention of schizophrenia Hard of hearing Chronic smoker, possible COPD Past Surgical History Cholecystectomy Allergies: Coded Allergies: Penicillin (Verified Allergy, Intermediate, 01/23/15) Objective . Vital Signs Date Time Temp Pulse Resp B/P Pulse Ox O2 Delivery O2 Flow Rate FiO2 08/03/16 12:25 100.4 107 18 181/99 96 08/03/16 08:33 100.1 99 18 156/92 93 08/03/16 08:00 95 08/03/16 04:24 97.8 82 18 110/76 96 08/02/16 23:00 84 08/02/16 23:00 84 08/02/16 22:27 14 08/02/16 22:27 14 08/02/16 20:03 97.6 80 22 118/71 92 08/02/16 16:04 100.4 87 22 151/77 95 08/02/16 15:00 79 08/02/16 08/02/16 08/03/16 15:00 23:00 07:00 Intake Total 1680 ml 240 ml Output Total 990 ml 1200 ml Balance 690 ml -960 ml Intake Oral 480 ml 240 ml IV Total 1200 ml Output Urine Total 990 ml 1200 ml # Bowel Movements 0 . Laboratory Tests Test 08/02/16 08/03/16 07:09 06:20 White Blood Count 2.5 TH/MM3 3.9 TH/MM3 Red Blood Count 3.77 MIL/MM3 4.14 MIL/MM3 Hemoglobin 12.1 GM/DL 13.2 GM/DL Hematocrit 35.5 % 39.3 % Mean Corpuscular Volume 94.2 FL 94.9 FL Mean Corpuscular Hemoglobin 32.1 PG 31.8 PG Mean Corpuscular Hemoglobin 34.1 % 33.5 % Concent Red Cell Distribution Width 14.1 % 14.0 % Platelet Count 99 TH/MM3 104 TH/MM3 Mean Platelet Volume 8.2 FL 8.4 FL Laboratory Tests Test 08/02/16 08/03/16 07:04 06:20 Total Bilirubin 0.4 MG/DL Direct Bilirubin 0.1 MG/DL Indirect Bilirubin 0.3 MG/DL Aspartate Amino Transf 70 U/L (AST/SGOT) Alanine Aminotransferase 20 U/L (ALT/SGPT) Alkaline Phosphatase 42 U/L Total Creatine Kinase 1625 U/L 1709 U/L Creatine Kinase MB 2.0 NG/ML 3.0 NG/ML Creatine Kinase MB % 0.1 % 0.2 % Total Protein 5.3 GM/DL Albumin 2.5 GM/DL Sodium Level 138 MEQ/L Potassium Level 3.6 MEQ/L Chloride Level 105 MEQ/L Carbon Dioxide Level 23.6 MEQ/L Anion Gap 9 MEQ/L Blood Urea Nitrogen 5 MG/DL Creatinine 0.75 MG/DL Estimat Glomerular Filtration 104 ML/MIN Rate Random Glucose 87 MG/DL Calcium Level 8.3 MG/DL Microbiology Date/Time Procedure Status Source Growth 07/31/16 16:37 Gram Stain - Final Complete Sputum Expectorated Sputum 07/31/16 16:37 Sputum Culture - Final Complete Sputum Expectorated Sputum HEAVY GROWTH NORMAL RESPIRATORY SAURABH 08/01/16 14:25 Aerobic Blood Culture - Preliminary Resulted Blood Peripheral NO GROWTH IN 2 DAYS 08/01/16 14:25 Anaerobic Blood Culture - Preliminary Resulted Blood Peripheral NO GROWTH IN 2 DAYS 08/01/16 14:35 Aerobic Blood Culture - Preliminary Resulted Blood Peripheral NO GROWTH IN 2 DAYS 08/01/16 14:35 Anaerobic Blood Culture - Preliminary Resulted Blood Peripheral NO GROWTH IN 2 DAYS Imaging Cervical Spine MRI 08/01/162135 Signed Impressions: Service Date/Time: Monday, August 01, 2016 13:22 - CONCLUSION: Mild to moderate degenerative disc disease. No evidence of disc herniation, significant spinal stenosis or spinal cord abnormality. Alden Peña MD Brain MRI 08/01/162135 Signed Impressions: Service Date/Time: Monday, August 01, 2016 13:22 - CONCLUSION: Unremarkable exam. No evidence of acute infarct, hemorrhage, mass or edema. Alden Peña MD Chest X-Ray 07/31/16 1008 Signed Impressions: Service Date/Time: Sunday, July 31, 2016 10:30 - CONCLUSION: Normal examination. Julius Diaz MD Head CT 07/31/16 0000 Signed Impressions: Service Date/Time: Sunday, July 31, 2016 11:13 - CONCLUSION: Stable CT brain compared to the prior study. 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 Bharath Kathleen MD Physical Exam GENERAL: awake and alert, NAD SKIN: Warm and dry. No generalized rash HEENT: [place] conjunctivae, no petechia or hemorrhage. No scleral icterus. No injection or drainage. Moist oral mucosa. He is edentulous. NECK: Supple, nontender, no meningeal signs. CARDIOVASCULAR: Regular rate and rhythm without murmurs, gallops, or rubs. RESPIRATORY: Clear to auscultation. Breath sounds equal bilaterally. No wheezes , rales, or rhonchi. GASTROINTESTINAL: Abdomen soft, nondistended, has mild diffuse tenderness. No guarding or rebound.. MUSCULOSKELETAL: Extremities without clubbing, cyanosis, or edema. No joint tenderness, or effusion. Good ROM all joints. No calf tenderness. No tenderness in thighs NEUROLOGICAL: Non-focal PSYCH: Calm and cooperative LINE: PIV with no evidence of infection Assessment & Plan Remarks IMPRESSION Sepsis, source? low grade temps now - no bacterial infection found - ?viral Renal insufficiency due to sepsis, better Leukopenia, ?viral or due to severe sepsis - improving Prob COPD, heavy tobacco use Rash with PCN Rhabdomyolysis RECOMMENDATION Stop vancomycin Continue Levaquin Stop cefepime Follow cultures Follow CBC Monitor temps Monitor progress Nallely Alcala MD Aug 03, 2016 14:50
[2016-08-03] MEDS ORDERED: cloNIDine HCL 0.1 MG TAB PO PRN (15:45)
[2016-08-03] MEDS: ACETAMINOPHEN 325 MG TAB PO PRN (16:02)
[2016-08-03 17:53] LABS: VITAMIN B6 3.7 ng/mL (2.1-21.7)
[2016-08-03] MEDS: TAMSULOSIN HCL 0.4 MG CAP PO SCH (21:09)
[2016-08-03] MEDS: MIRTAZAPINE 15 MG TAB PO SCH (21:09)
[2016-08-04] VITALS (9 sets, daily range): BP systolic 111–143; BP diastolic 69–95; PULSE 76–85; RESP 16–22; TEMP 98.6–99.8; O2SAT 92–100
[2016-08-04] MEDS: SODIUM CHLOR 0.9% 1000 ML INJ 1,000 ML IV SCH ×2 (04:44→16:38)
[2016-08-04 07:37] LABS: HEMATOCRIT 33.5 % (39.0-51.0); MEAN CELL VOLUME 93.7 FL (80.0-100.0); MEAN CORPUSCULAR HEMOGLOBIN 31.8 PG (27.0-34.0); PLATELET COUNT 80 TH/MM3 (150-450); RED BLOOD COUNT 3.57 MIL/MM3 (4.50-5.90); RED CELL DISTRIBUTION WIDTH 13.8 % (11.6-17.2)
[2016-08-04 07:39] LABS: REVIEW FLAG FINAL
[2016-08-04 07:44] LABS: BICARBONATE 24.5 MEQ/L (21.0-32.0); POTASSIUM 3.2 MEQ/L (3.5-5.1)
[2016-08-04] MEDS: SODIUM CHLORIDE 0.9% FLUSH 5 ML FLUSH FLUSH SCH ×2 (09:58→21:00)
[2016-08-04] MEDS: PREGABALIN 75 MG CAP PO SCH ×2 (09:58→21:07)
[2016-08-04] MEDS: NYSTATIN SUSP 500,000 U/5 ML CUP SWISH-SWAL SCH ×4 (09:58→21:07)
[2016-08-04] MEDS: PANTOPRAZOLE SOD 40 MG DELAYED RELEASE TAB PO SCH (09:58)
[2016-08-04] MEDS: FLUoxetine HCL 20 MG CAP PO SCH (09:58)
[2016-08-04] MEDS: DOCUSATE SODIUM 100 MG CAP PO SCH ×2 (09:58→21:07)
[2016-08-04] MEDS: RESP: ALBUTEROL 2.5 MG/IPRATROPIUM 0.5 MG NEB (SCH) NEB ×4 (10:17→20:25)
[2016-08-04] MEDS ORDERED: PHARMACY ORDERED LAB XX ONE (11:45)
--- NOTE | 2016-08-04 14:29 | HHI.PR ---
Subjective Subjective Remarks Subjective Remarks Alert oriented 3, dates feeling much better has been ambulating without assistance Low-grade fever 99.8 some cough, mild wheezing when awake No facial grimace, no headache no cp no sob Mild nonproductive cough Review of Systems Constitutional Constitutional: Fatigue, Weakness Constitutional Remarks 10 point ROS initiated, positives noted in record all of the systems negative Pulmonary Respiratory: Coughing (mild hacky, nonproductive) Musculoskeletal MS Remarks MA E with purpose, strong extremities and overcomes resistance Neurologic Neurologic Remarks Alert oriented 3 Psychiatric Psychiatric: Depression (noted per neurology) Vitals/Results Intake & Output 08/03/16 08/03/16 08/04/16 15:00 23:00 07:00 Intake Total 1602 ml 1168 ml 849 ml Output Total 1800 ml 200 ml Balance -198 ml 1168 ml 649 ml Intake Oral 480 ml 120 ml IV Total 1602 ml 688 ml 729 ml Output Urine Total 1800 ml 200 ml # Voids 2 # Bowel Movements 0 0 Vital Signs Vital Signs Date Time Temp Pulse Resp B/P Pulse Ox O2 Delivery O2 Flow Rate FiO2 08/04/16 12:00 98.6 83 21 113/69 96 08/04/16 10:19 94 Nasal Cannula 3.00 08/04/16 08:00 99.2 76 17 134/76 96 08/04/16 04:00 99.8 83 22 124/73 95 08/04/16 00:00 99.7 85 22 111/69 95 08/03/16 21:00 Nasal Cannula 2.00 08/03/16 20:58 90 Nasal Cannula 21 08/03/16 20:05 98.8 86 16 117/72 94 08/03/16 19:25 Room Air 08/03/16 16:00 100.0 94 18 108/57 93 08/03/16 15:00 73 CBC/BMP: 08/04/16 0623 08/04/16 0623 Lab Results Laboratory Tests Test 08/04/16 06:23 White Blood Count 4.0 TH/MM3 Red Blood Count 3.57 MIL/MM3 Hemoglobin 11.4 GM/DL Hematocrit 33.5 % Mean Corpuscular Volume 93.7 FL Mean Corpuscular Hemoglobin 31.8 PG Mean Corpuscular Hemoglobin 34.0 % Concent Red Cell Distribution Width 13.8 % Platelet Count 80 TH/MM3 Mean Platelet Volume 8.4 FL Erythrocyte Sedimentation Rate 52 mm/hr Sodium Level 139 MEQ/L Potassium Level 3.2 MEQ/L Chloride Level 106 MEQ/L Carbon Dioxide Level 24.5 MEQ/L Anion Gap 9 MEQ/L Blood Urea Nitrogen 7 MG/DL Creatinine 0.75 MG/DL Estimat Glomerular Filtration 104 ML/MIN Rate Random Glucose 94 MG/DL Calcium Level 7.7 MG/DL Total Creatine Kinase 1696 U/L Creatine Kinase MB 3.0 NG/ML Creatine Kinase MB % 0.2 % C-Reactive Protein 14.00 MG/DL Imaging Remarks Last Impressions Cervical Spine MRI 08/01/162135 Signed Impressions: Service Date/Time: Monday, August 01, 2016 13:22 - CONCLUSION: Mild to moderate degenerative disc disease. No evidence of disc herniation, significant spinal stenosis or spinal cord abnormality. Alden Peña MD Brain MRI 08/01/162135 Signed Impressions: Service Date/Time: Monday, August 01, 2016 13:22 - CONCLUSION: Unremarkable exam. No evidence of acute infarct, hemorrhage, mass or edema. Alden Peña MD Chest X-Ray 07/31/16 1008 Signed Impressions: Service Date/Time: Sunday, July 31, 2016 10:30 - CONCLUSION: Normal examination. Julius Diaz MD Head CT 07/31/16 0000 Signed Impressions: Service Date/Time: Sunday, July 31, 2016 11:13 - CONCLUSION: Stable CT brain compared to the prior study. 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 Bharath Kathleen MD Current Medications Active Medications Clonidine (Catapres) 0.1 mg Q6H PRN PO Last administered on 08/03/16t 16:02; Admin Dose 0.1 MG; Start 08/03/16 at 15:45 Miscellaneous Information SPECIFIC LAB TO BE DRAWN:VANCOMYCIN TROUGH DATE TO... ONCE ONCE XX; Start 08/04/16 at 11:45; Stop 08/04/16 at 11:45; Status DC Physical Exam General General Appearance: Well Developed, No Acute Distress, Comfortable Eyes Eye Exam: Pupils Equal, Pupils Reactive, Sclera White Ears & Nose Ears & Nose Exam: Nasal Mucosa [place] Throat Throat Exam: Oral Mucosa [place] & Moist Neck Neck Exam: Neck Supple, Trachea Midline Pulmonary Resp Exam: Breath Sounds Equal, Sputum, Diminished Breath Sounds Resp Remarks A few mild wheezes otherwise clear Cardiology CV Exam: Regular Chest/Breast Chest/Breast Exam: Symmetry Gastrointestinal/Abdomen GI Exam: Soft, Non-Tender, Bowel Sounds Present, Non-Distended GI Remarks No BM 3 or 4 days Musculoskeletal MS Exam: Joints Intact Integumentary Skin Exam: Warm, Dry (mild diaphoresis all fore head, mild low-grade temp earlier) Extremeties Extremities Exam: No Edema, Pedal Pulses Palpable Neurologic Neuro Exam: Alert, Oriented, Speech Clear, Moving All Extremities, No Focal Deficits Psychiatric Psych Exam: Appropriate Responses VTE Prophylaxis VTE Prophylaxis Meds: Heparin PUD Prophylasis PUD Prophylaxis: Protonix Assessment/Plan Problem List: (1) Generalized weakness (2) Rhabdomyolysis (3) Tobacco abuse (4) COPD (chronic obstructive pulmonary disease) (5) Renal insufficiency (6) Depression (7) Fever (8) Leukopenia (9) History of CVA (cerebrovascular accident) Assessment/Plan imaging studies reviewed, old CVA, no new findings, possible depression appreciate neuro input, D/W Dr. Gould, poss. due to dehydration vs mild serotonin syndrome, noted with leukopenia ? med induced vs viral. Agrees with ID input. Hold off on LP for now if no other cause for fever. Consider polymyalgia rheumatica poss. PO steroids. Pt. improved, recommends to hold LP Echo done, EF 35-40% EEG negative overall improving, ambulating continue with PT Chemistry labs canceled today, mild hypokalemia noted, we'll give K 1 dose, and recheck in the morning Appreciate ID input continue with empiric abx fever last night leukopenia improving platelets also coming up cultures pending, continue to follow Hemoglobin 11.4 no acute changes, monitor noted with elevated CPK, rhabdo monitor renal function, improving Tobacco abuse counseling Duonebs QID SCDs for DVT prophylaxis, avoid Heparin due to low platelets PPI for GI prophylaxis Improving, however he did spike fever, continue with above treatment , 99.8, still low-grade Constipation no BM in 3-4 days. MOM ordered, discussed with the patient D/W Dr. Urena D/W pt This pt was seen by myself and Dr. Urena, this note is written on his behalf. Problem Qualifiers (1) Rhabdomyolysis: Qualified Code: M62.82 - Non-traumatic rhabdomyolysis (2) COPD (chronic obstructive pulmonary disease): Qualified Code: J42 - Chronic bronchitis, unspecified chronic bronchitis type (3) Depression: (4) Fever: Qualified Code: R50.9 - Fever, unspecified fever cause (5) Leukopenia: Qualified Code: D72.819 - Leukopenia, unspecified type Orly Hensley Aug 04, 2016 14:29
[2016-08-04] MEDS ORDERED: POTASSIUM CL 40 MEQ/30 ML LIQ UDC PO ONE (14:45)
[2016-08-04] MEDS: LEVOFLOXACIN 750 MG TAB PO SCH (16:34)
[2016-08-04] MEDS: TAMSULOSIN HCL 0.4 MG CAP PO SCH (21:07)
[2016-08-04] MEDS: MIRTAZAPINE 15 MG TAB PO SCH (21:10)
[2016-08-04] MEDS: MAGNESIUM HYDROXIDE SUSP 30 ML CUP PO PRN (22:37)
[2016-08-04] MEDS: ALPRAZolam 1 MG TAB PO PRN (22:38)
[2016-08-05] VITALS (9 sets, daily range): BP systolic 138–154; BP diastolic 79–89; PULSE 70–90; RESP 4–22; TEMP 97.5–99.9; O2SAT 93–97
[2016-08-05] MEDS: SODIUM CHLOR 0.9% 1000 ML INJ 1,000 ML IV SCH ×2 (03:06→12:23)
[2016-08-05] MEDS: RESP: ALBUTEROL 2.5 MG/IPRATROPIUM 0.5 MG NEB (SCH) NEB ×4 (08:01→20:10)
[2016-08-05 08:30] LABS: BICARBONATE 27.4 MEQ/L (21.0-32.0); POTASSIUM 3.7 MEQ/L (3.5-5.1)
[2016-08-05] MEDS: PREGABALIN 75 MG CAP PO SCH ×2 (08:31→22:57)
[2016-08-05] MEDS: FLUoxetine HCL 20 MG CAP PO SCH (08:31)
[2016-08-05] MEDS: DOCUSATE SODIUM 100 MG CAP PO SCH ×2 (08:31→22:58)
[2016-08-05] MEDS: PANTOPRAZOLE SOD 40 MG DELAYED RELEASE TAB PO SCH (08:31)
[2016-08-05] MEDS: SODIUM CHLORIDE 0.9% FLUSH 5 ML FLUSH FLUSH SCH ×2 (08:31→22:58)
[2016-08-05] MEDS: NYSTATIN SUSP 500,000 U/5 ML CUP SWISH-SWAL SCH ×4 (08:31→22:57)
[2016-08-05] MEDS: MAGNESIUM HYDROXIDE SUSP 30 ML CUP PO PRN (08:31)
[2016-08-05] MEDS: ALPRAZolam 1 MG TAB PO PRN ×2 (12:22→22:57)
[2016-08-05] MEDS: THIAMINE HCL 100 MG TAB PO SCH (13:21)
[2016-08-05] MEDS: LEVOFLOXACIN 750 MG TAB PO SCH (16:08)
--- NOTE | 2016-08-05 16:16 | HHI.PR ---
Subjective Subjective Remarks Subjective Remarks Alert oriented 3, dates feeling much better has been ambulating without assistance Low-grade fever at midnight, normal this p.m. some cough, expiratory wheezing No facial grimace, no headache no cp no sob Review of Systems Constitutional Constitutional: Fatigue, Weakness Constitutional Remarks 10 point ROS initiated, positives noted in record all of the systems negative Pulmonary Respiratory: Coughing (mild hacky, nonproductive), Wheezing Musculoskeletal MS Remarks MA E with purpose, strong extremities and overcomes resistance Neurologic Neurologic Remarks Alert oriented 3 Psychiatric Psychiatric: Depression (noted per neurology) Vitals/Results Intake & Output 08/04/16 08/04/16 08/05/16 15:00 23:00 07:00 Intake Total 720 ml 1830 ml 480 ml Output Total 650 ml Balance 720 ml 1830 ml -170 ml Intake Oral 720 ml 480 ml 480 ml IV Total 1350 ml Output Urine Total 650 ml # Voids 3 2 # Bowel Movements 0 Vital Signs Vital Signs Date Time Temp Pulse Resp B/P Pulse Ox O2 Delivery O2 Flow Rate FiO2 08/05/16 12:00 98.2 70 16 143/82 97 08/05/16 08:10 96 Nasal Cannula 4.00 08/05/16 08:00 98.0 74 16 139/79 94 08/05/16 04:00 99.8 87 16 138/89 97 08/05/16 00:00 99.9 90 16 144/87 96 08/04/16 20:25 93 Nasal Cannula 4.00 08/04/16 20:01 99.6 78 16 143/95 100 08/04/16 18:05 Nasal Cannula 3.00 08/04/16 16:44 92 Nasal Cannula 4.00 08/04/16 16:38 Nasal Cannula 3.00 08/04/16 16:34 99.5 79 16 142/81 99 CBC/BMP: 08/04/16 0623 08/05/16 0659 Lab Results Laboratory Tests Test 08/05/16 06:59 Sodium Level 141 MEQ/L Potassium Level 3.7 MEQ/L Chloride Level 106 MEQ/L Carbon Dioxide Level 27.4 MEQ/L Anion Gap 8 MEQ/L Blood Urea Nitrogen 6 MG/DL Creatinine 0.66 MG/DL Estimat Glomerular Filtration 120 ML/MIN Rate Random Glucose 93 MG/DL Calcium Level 7.8 MG/DL Current Medications Active Medications Thiamine HCl (Vitamin B1) 200 mg DAILY PO Last administered on 08/05/16t 13:21; Admin Dose 200 MG; Start 08/05/16 at 12:30 Physical Exam General General Appearance: Well Developed, No Acute Distress, Comfortable Eyes Eye Exam: Pupils Equal, Pupils Reactive, Sclera White Ears & Nose Ears & Nose Exam: Nasal Mucosa [place] Throat Throat Exam: Oral Mucosa [place] & Moist Neck Neck Exam: Neck Supple, Trachea Midline Pulmonary Resp Exam: Breath Sounds Equal, Sputum, Diminished Breath Sounds Resp Remarks A few mild wheezes otherwise clear Cardiology CV Exam: Regular Chest/Breast Chest/Breast Exam: Symmetry Gastrointestinal/Abdomen GI Exam: Soft, Non-Tender, Bowel Sounds Present, Non-Distended GI Remarks No BM 3 or 4 days Genitourinary Exam: Clear Urine (orange in urinal.) Musculoskeletal MS Exam: Joints Intact Integumentary Skin Exam: Warm, Dry (mild diaphoresis all fore head, mild low-grade temp earlier) Extremeties Extremities Exam: No Edema, Pedal Pulses Palpable Neurologic Neuro Exam: Alert, Oriented, Speech Clear, Moving All Extremities, No Focal Deficits Neuro Remarks sleeping some, but arouses to verbal stimuli Psychiatric Psych Exam: Appropriate Responses VTE Prophylaxis VTE Prophylaxis Meds: Heparin PUD Prophylasis PUD Prophylaxis: Protonix Assessment/Plan Problem List: (1) Generalized weakness (2) Rhabdomyolysis (3) Tobacco abuse (4) COPD (chronic obstructive pulmonary disease) (5) Renal insufficiency (6) Depression (7) Fever (8) Leukopenia (9) History of CVA (cerebrovascular accident) Assessment/Plan imaging studies reviewed, old CVA, no new findings, possible depression appreciate neuro input, D/W Dr. Gould, poss. due to dehydration vs mild serotonin syndrome, noted with leukopenia ? med induced vs viral. Agrees with ID input. Hold off on LP for now if no other cause for fever. Consider polymyalgia rheumatica poss. PO steroids. Pt. improved, recommends to hold LP Echo done, EF 35-40% EEG negative overall improving, ambulating continue with PT Monitor labs Appreciate ID input fever last night, normal this p.m. Chronic bronchitis, patient using dual nebs, and antibiotic leukopenia improving platelets also coming up Hemoglobin stable, 11.4 noted with elevated CPK, rhabdo, resolved monitor renal function, improving Tobacco abuse counseling Fatou QID SCDs for DVT prophylaxis, avoid Heparin due to low platelets PPI for GI prophylaxis Improving, however he did spike fever, continue with above treatment , 99.8, still low-grade Constipation, Ducolax suppository today and when necessary Review labs in the a.m. D/W Dr. Urena D/W pt This pt was seen by myself and Dr. Urena, this note is written on his behalf. Problem Qualifiers (1) Rhabdomyolysis: Qualified Code: M62.82 - Non-traumatic rhabdomyolysis (2) COPD (chronic obstructive pulmonary disease): Qualified Code: J42 - Chronic bronchitis, unspecified chronic bronchitis type (3) Depression: (4) Fever: Qualified Code: R50.9 - Fever, unspecified fever cause (5) Leukopenia: Qualified Code: D72.819 - Leukopenia, unspecified type Orly Hensley Aug 05, 2016 16:16
[2016-08-05] MEDS: BISACODYL 10 MG SUPP RECTAL SCH ×2 (16:43→21:06)
[2016-08-05] MEDS: TAMSULOSIN HCL 0.4 MG CAP PO SCH (22:57)
[2016-08-05] MEDS: MIRTAZAPINE 15 MG TAB PO SCH (22:58)
[2016-08-06] VITALS (7 sets, daily range): BP systolic 125–160; BP diastolic 71–88; PULSE 65–79; RESP 18–22; TEMP 95.9–99.9; O2SAT 90–98
[2016-08-06 05:36] LABS: MEAN CORPUSCULAR HGB CONC 34.1 % (32.0-36.0); PLATELET COUNT 101 TH/MM3 (150-450); RED BLOOD COUNT 3.51 MIL/MM3 (4.50-5.90); RED CELL DISTRIBUTION WIDTH 13.9 % (11.6-17.2); REVIEW FLAG FINAL; WHITE BLOOD COUNT 3.8 TH/MM3 (4.0-11.0)
[2016-08-06 06:00] LABS: BICARBONATE 23.9 MEQ/L (21.0-32.0); POTASSIUM 3.9 MEQ/L (3.5-5.1)
--- NOTE | 2016-08-06 08:06 | HHI.PR ---
Review/Management Diagnosis/Plan: (1) Generalized weakness Plan: may be 2/2 dehydration, poor po intake. could also have mild serotonin syndrome in the setting of multiple psychotropic medication use and arf r/o infection- has mild fevers. cxr negative. ct brain naicp. ? URI/autoimmune doing better recs neuro intact; good motor strength ?elevated CK level- if persistent, may look at emg/ncv and possible muscle biopsy; monitor levels serially follow exam (2) Renal insufficiency Plan: ivf (3) Depression Plan: seen by psych in the past (4) Tobacco abuse Plan: cessation d/w pt Subjective Subjective Comments No acute events reported; "I feel stronger" No headache No chest pain No dyspnea Active Medications Current Medications Medications (Trade) Dose Ordered Sig/Noe Route Start Time Stop Time Status Last Admin (NS 1000 ml Inj) 1,000 ml @ 100 mls/hr Q10H IV 07/31/16 13:18 08/05/16 12:23 (NS Flush) 2 ml UNSCH PRN FLUSH 07/31/16 13:30 (NS Flush) 2 ml BID FLUSH 07/31/16 21:00 08/03/16 21:09 (Colace) 100 mg Q12HR PO 07/31/16 13:30 08/05/16 08:31 (Heparin Inj) 5,000 units Q12H SQ 07/31/16 14:00 Hold 08/02/16 01:42 (Narcan Inj) 0.4 mg UNSCH PRN IV 07/31/16 13:30 (Mycostatin Liq) 5 ml QID SWISH-SWAL 07/31/16 18:00 08/05/16 22:57 ([place] 5-325 Mg) 1 tab Q4H PRN PO 07/31/16 18:15 08/02/16 21:31 (Xanax) 2 mg Q8H PRN PO 07/31/16 21:45 08/05/16 22:57 (PROzac) 20 mg DAILY PO 08/01/16 09:00 08/05/16 08:31 (Remeron) 45 mg HS PO 07/31/16 21:45 08/05/16 22:58 (Flomax) 0.4 mg HS PO 07/31/16 21:45 08/05/16 22:57 (Protonix) 40 mg DAILY PO 08/01/16 09:00 08/05/16 08:31 (Lyrica) 75 mg BID PO 08/01/16 09:00 08/05/16 22:57 (Tylenol) 650 mg Q6H PRN PO 08/01/16 18:13 08/03/16 16:02 (Catapres) 0.1 mg Q6H PRN PO 08/03/16 15:45 08/03/16 16:02 (Milk Of [place] Liq) 30 ml DAILY PRN PO 08/04/16 14:45 08/05/16 08:31 (Levaquin) 750 mg Q24H PO 08/04/16 16:00 08/05/16 16:08 (Vitamin B1) 200 mg DAILY PO 08/05/16 12:30 08/05/16 13:21 (Dulcolax Supp) 10 mg DAILY RECTAL 08/05/16 16:30 08/05/16 21:06 Allergies Allergies Coded Allergies Penicillin (Verified Allergy, Intermediate, 01/23/15) Review of Systems All other ROS: ROS reviewed as documented in chart Exam I&O / VS 08/05/16 08/05/16 08/06/16 15:00 23:00 07:00 Intake Total 480 ml 1165 ml 240 ml Output Total 1150 ml 800 ml 1450 ml Balance -670 ml 365 ml -1210 ml Intake Oral 480 ml 480 ml 240 ml IV Total 685 ml Output Urine Total 1150 ml 800 ml 1450 ml # Bowel Movements 0 2 0 Vital Signs Date Time Temp Pulse Resp B/P Pulse Ox O2 Delivery O2 Flow Rate FiO2 08/06/16 04:55 98.7 79 22 135/82 90 08/06/16 00:52 99.9 78 21 147/88 91 08/05/16 21:15 99.5 83 22 138/80 93 08/05/16 20:09 96 Nasal Cannula 4.00 08/05/16 16:40 97.5 72 4 154/88 97 08/05/16 16:00 97.5 74 16 154/88 97 08/05/16 12:00 98.2 70 16 143/82 97 08/05/16 08:10 96 Nasal Cannula 4.00 General: Alert and Oriented, No acute distress Eye: EOMI Respiratory: Non-labored respirations Cardiology: Normal rate Musculoskeletal: ROM Neurologic: Alert, Oriented, Normal sensory, CN II-XII intact, Gag reflex normal, Normal DTR's Psychiatric: Cooperative, Appropriate mood & affect Exam Comments alert, ox 3, neck supple, eomi, face sym, vff, motor 5/5 all 4 ext prox and distally, msr symmetric trace to 1+, no clonus, planterflexor Objective Micro and Labs Laboratory Tests Test 08/06/16 04:53 White Blood Count 3.8 Red Blood Count 3.51 Hemoglobin 11.3 Hematocrit 33.0 Mean Corpuscular Volume 94.0 Mean Corpuscular Hemoglobin 32.0 Mean Corpuscular Hemoglobin 34.1 Concent Red Cell Distribution Width 13.9 Platelet Count 101 Mean Platelet Volume 9.2 Sodium Level 139 Potassium Level 3.9 Chloride Level 106 Carbon Dioxide Level 23.9 Anion Gap 9 Blood Urea Nitrogen 6 Creatinine 0.71 Estimat Glomerular Filtration 110 Rate Random Glucose 89 Calcium Level 8.3 Date/Time Procedure Status Source Growth 08/01/16 14:35 Aerobic Blood Culture - Preliminary Resulted Blood Peripheral NO GROWTH IN 4 DAYS 08/01/16 14:35 Anaerobic Blood Culture - Preliminary Resulted Blood Peripheral NO GROWTH IN 4 DAYS Problem Qualifiers (1) Depression: Marco Gould MD Aug 06, 2016 08:06
[2016-08-06] MEDS: PREGABALIN 75 MG CAP PO SCH ×2 (08:49→20:37)
[2016-08-06] MEDS: FLUoxetine HCL 20 MG CAP PO SCH (08:49)
[2016-08-06] MEDS: DOCUSATE SODIUM 100 MG CAP PO SCH ×2 (08:49→20:38)
[2016-08-06] MEDS: PANTOPRAZOLE SOD 40 MG DELAYED RELEASE TAB PO SCH (08:49)
[2016-08-06] MEDS: NYSTATIN SUSP 500,000 U/5 ML CUP SWISH-SWAL SCH ×4 (08:49→20:37)
[2016-08-06] MEDS: BISACODYL 10 MG SUPP RECTAL SCH (08:55)
[2016-08-06] MEDS: RESP: ALBUTEROL 2.5 MG/IPRATROPIUM 0.5 MG NEB (SCH) NEB (09:45)
[2016-08-06] MEDS ORDERED: PETROLEUM/SHARK LIVER OIL 60 GM TUBE RECTAL PRN (11:00)
--- NOTE | 2016-08-06 12:29 | HHI.PR ---
Subjective Subjective Remarks fever max 99 no cp no sob leg pain almost done getting up and ambulating, feels much more improved no diarrhea no n/v wants to know when he is going home Review of Systems Constitutional Constitutional: Fatigue, Weakness Constitutional Remarks 12 point ROS completed, negative except as noted above Pulmonary Respiratory: Coughing (mild hacky, nonproductive), Wheezing Psychiatric Psychiatric: Depression (noted per neurology) Vitals/Results Intake & Output 08/05/16 08/05/16 08/06/16 15:00 23:00 07:00 Intake Total 480 ml 1165 ml 240 ml Output Total 1150 ml 800 ml 1450 ml Balance -670 ml 365 ml -1210 ml Intake Oral 480 ml 480 ml 240 ml IV Total 685 ml Output Urine Total 1150 ml 800 ml 1450 ml # Bowel Movements 0 2 0 Vital Signs Vital Signs Date Time Temp Pulse Resp B/P Pulse Ox O2 Delivery O2 Flow Rate FiO2 08/06/16 09:45 94 Nasal Cannula 4.00 08/06/16 08:00 95.9 67 20 160/79 95 08/06/16 04:55 98.7 79 22 135/82 90 08/06/16 00:52 99.9 78 21 147/88 91 08/05/16 21:15 99.5 83 22 138/80 93 08/05/16 20:09 96 Nasal Cannula 4.00 08/05/16 16:40 97.5 72 4 154/88 97 08/05/16 16:00 97.5 74 16 154/88 97 CBC/BMP: 08/06/16 0453 08/06/16 0453 Lab Results Laboratory Tests Test 08/06/16 04:53 White Blood Count 3.8 TH/MM3 Red Blood Count 3.51 MIL/MM3 Hemoglobin 11.3 GM/DL Hematocrit 33.0 % Mean Corpuscular Volume 94.0 FL Mean Corpuscular Hemoglobin 32.0 PG Mean Corpuscular Hemoglobin 34.1 % Concent Red Cell Distribution Width 13.9 % Platelet Count 101 TH/MM3 Mean Platelet Volume 9.2 FL Sodium Level 139 MEQ/L Potassium Level 3.9 MEQ/L Chloride Level 106 MEQ/L Carbon Dioxide Level 23.9 MEQ/L Anion Gap 9 MEQ/L Blood Urea Nitrogen 6 MG/DL Creatinine 0.71 MG/DL Estimat Glomerular Filtration 110 ML/MIN Rate Random Glucose 89 MG/DL Calcium Level 8.3 MG/DL Physical Exam General General Appearance: Well Developed, No Acute Distress, Comfortable Eyes Eye Exam: Pupils Equal, Pupils Reactive, Sclera White Ears & Nose Ears & Nose Exam: Nasal Mucosa [place] Throat Throat Exam: Oral Mucosa [place] & Moist Neck Neck Exam: Neck Supple, Trachea Midline Pulmonary Resp Exam: Breath Sounds Equal, Sputum, Diminished Breath Sounds Resp Remarks exp. wheezes, faint ronchi bases Cardiology CV Exam: Regular Chest/Breast Chest/Breast Exam: Symmetry Gastrointestinal/Abdomen GI Exam: Soft, Non-Tender, Bowel Sounds Present, Non-Distended Musculoskeletal MS Exam: Joints Intact Integumentary Skin Exam: Warm, Dry Extremeties Extremities Exam: No Edema, Pedal Pulses Palpable Neurologic Neuro Exam: Alert, Oriented, Speech Clear, Moving All Extremities, No Focal Deficits Neuro Remarks improved strength UE and LE 4/5 Psychiatric Psych Exam: Appropriate Responses VTE Prophylaxis VTE Prophylaxis Meds: Heparin PUD Prophylasis PUD Prophylaxis: Protonix Assessment/Plan Problem List: (1) Generalized weakness (2) Rhabdomyolysis (3) Tobacco abuse (4) COPD (chronic obstructive pulmonary disease) (5) Renal insufficiency (6) Depression (7) Fever (8) Leukopenia (9) History of CVA (cerebrovascular accident) Assessment/Plan imaging studies reviewed, old CVA, no new findings, possible depression appreciate neuro input, D/W Dr. Gould, poss. due to dehydration vs mild serotonin syndrome, noted with leukopenia ? med induced vs viral. Agrees with ID input. Hold off on LP for now if no other cause for fever. Consider polymyalgia rheumatica poss. PO steroids. Pt. improved, recommends to hold LP. Echo done, EF 35-40% EEG negative overall improving, ambulating continue with PT Monitor labs low thiamine, PO replacement Appreciate ID input still with low grade fever further work up ordered today-HIV, Hepatitis, EBV and CMV will f/u on results COPD with Chronic bronchitis Duonebs oxygen leukopenia improving platelets also coming up noted with elevated CPK, rhabdo CPK in am renal fx stable Tobacco abuse counseling Duonebs QID SCDs for DVT prophylaxis, avoid Heparin due to low platelets PPI for GI prophylaxis Brynn regimen OOB with PT CM for DC planning, hopefully dc home in 1-2 days D/W Dr. Conde D/W RN D/W pt This pt was seen by myself and Dr. Conde, this note is written on his behalf. Problem Qualifiers (1) Rhabdomyolysis: Qualified Code: M62.82 - Non-traumatic rhabdomyolysis (2) COPD (chronic obstructive pulmonary disease): Qualified Code: J42 - Chronic bronchitis, unspecified chronic bronchitis type (3) Depression: (4) Fever: Qualified Code: R50.9 - Fever, unspecified fever cause (5) Leukopenia: Qualified Code: D72.819 - Leukopenia, unspecified type Oxana Sorenson Aug 06, 2016 12:29 Qualified Code: D72.819 - Leukopenia, unspecified type Oxana Sorenson Aug 06, 2016 12:29
--- NOTE | 2016-08-06 14:15 | HHI.IDPN ---
Subjective Subjective Remarks Notes reviewed Still with occ temps to 99+ Walked with PT, pain in thighs better CPK still elevated Still with leukopenia Nothing new on C/S, all negative so far No new complaints Overall feels better ESR 36 CRP 7.72 Antibiotics Levaquin Lines PIV Past Medical History Anxiety, depression There is mention of schizophrenia Hard of hearing Chronic smoker, possible COPD Past Surgical History Cholecystectomy Allergies: Coded Allergies: Penicillin (Verified Allergy, Intermediate, 01/23/15) Objective . Vital Signs Date Time Temp Pulse Resp B/P Pulse Ox O2 Delivery O2 Flow Rate FiO2 08/06/16 09:45 94 Nasal Cannula 4.00 08/06/16 08:00 95.9 67 20 160/79 95 08/06/16 04:55 98.7 79 22 135/82 90 08/06/16 00:52 99.9 78 21 147/88 91 08/05/16 21:15 99.5 83 22 138/80 93 08/05/16 20:09 96 Nasal Cannula 4.00 08/05/16 16:40 97.5 72 4 154/88 97 08/05/16 16:00 97.5 74 16 154/88 97 08/05/16 08/05/16 08/06/16 14:59 22:59 06:59 Intake Total 480 ml 1165 ml 240 ml Output Total 1150 ml 800 ml 1450 ml Balance -670 ml 365 ml -1210 ml Intake Oral 480 ml 480 ml 240 ml IV Total 685 ml Output Urine Total 1150 ml 800 ml 1450 ml # Bowel Movements 0 2 0 . Laboratory Tests Test 08/06/16 04:53 White Blood Count 3.8 TH/MM3 Red Blood Count 3.51 MIL/MM3 Hemoglobin 11.3 GM/DL Hematocrit 33.0 % Mean Corpuscular Volume 94.0 FL Mean Corpuscular Hemoglobin 32.0 PG Mean Corpuscular Hemoglobin 34.1 % Concent Red Cell Distribution Width 13.9 % Platelet Count 101 TH/MM3 Mean Platelet Volume 9.2 FL Laboratory Tests Test 08/05/16 08/06/16 06:59 04:53 Sodium Level 141 MEQ/L 139 MEQ/L Potassium Level 3.7 MEQ/L 3.9 MEQ/L Chloride Level 106 MEQ/L 106 MEQ/L Carbon Dioxide Level 27.4 MEQ/L 23.9 MEQ/L Anion Gap 8 MEQ/L 9 MEQ/L Blood Urea Nitrogen 6 MG/DL 6 MG/DL Creatinine 0.66 MG/DL 0.71 MG/DL Estimat Glomerular Filtration 120 ML/MIN 110 ML/MIN Rate Random Glucose 93 MG/DL 89 MG/DL Calcium Level 7.8 MG/DL 8.3 MG/DL Imaging Cervical Spine MRI 08/01/162135 Signed Impressions: Service Date/Time: Monday, August 01, 2016 13:22 - CONCLUSION: Mild to moderate degenerative disc disease. No evidence of disc herniation, significant spinal stenosis or spinal cord abnormality. Alden Peña MD Brain MRI 08/01/166 Signed Impressions: Service Date/Time: Monday, August 01, 2016 13:22 - CONCLUSION: Unremarkable exam. No evidence of acute infarct, hemorrhage, mass or edema. Alden Peña MD Chest X-Ray 07/31/16 1008 Signed Impressions: Service Date/Time: Sunday, July 31, 2016 10:30 - CONCLUSION: Normal examination. Julius Diaz MD Head CT 07/31/16 0000 Signed Impressions: Service Date/Time: Sunday, July 31, 2016 11:13 - CONCLUSION: Stable CT brain compared to the prior study. 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 Bharath Kathleen MD Physical Exam GENERAL: awake and alert, NAD SKIN: Warm and dry. No generalized rash HEENT: [place] conjunctivae, no petechia or hemorrhage. No scleral icterus. No injection or drainage. Moist oral mucosa. He is edentulous. NECK: Supple, nontender, no meningeal signs. CARDIOVASCULAR: Regular rate and rhythm without murmurs, gallops, or rubs. RESPIRATORY: Clear to auscultation. Breath sounds equal bilaterally. No wheezes , rales, or rhonchi. GASTROINTESTINAL: Abdomen soft, nondistended, has mild diffuse tenderness. No guarding or rebound.. MUSCULOSKELETAL: Extremities without clubbing, cyanosis, or edema. Good ROM all joints. No calf tenderness. No tenderness in thighs NEUROLOGICAL: Non-focal PSYCH: Calm and cooperative LINE: PIV with no evidence of infection Assessment & Plan Remarks IMPRESSION Sepsis, source? temps better - no bacterial infection found - ?viral Renal insufficiency due to sepsis, better Leukopenia, ?viral or due to severe sepsis Prob COPD, heavy tobacco use Rash with PCN Elevated CPK RECOMMENDATION Continue Levaquin for now - if stable possible D/C nect day or two HIV, Hepatitis EBV and CMV Discussed HIV testing with patient and he is agreeable Follow CBC Monitor temps Monitor progress Nallely Alcala MD Aug 06, 2016 14:15
--- NOTE | 2016-08-06 14:47 | HHI.FF ---
Face to Face Verification Diagnosis: (1) Rhabdomyolysis (2) Leukopenia (3) Fever (4) Generalized weakness (5) Depression (6) Renal insufficiency Physical Therapy Order: Evaluate and Treat Home Health Nursing Order: Medical education Nursing assessment with vital signs Home Health Aide Order: To Assist In: coagulating drying supervisor and meal prep Siderographer Order: To Evaluate: Support services Order: To Provide: Community services I have seen patient Dieter Feliz on 08/06/16. My clinical findings support the need for the requested home health care services because: Deconditioned w/ increased weakness Limited ability to care for self Need for psychosocial assistance Impaired cognition/judgement I certify that my clinical findings support that this patient is homebound because: Impaired cognitive ability/safety Unsafe to leave home unassisted Need for psychosocial assistance Oxana Sorenson Aug 06, 2016 14:46 Jackeline Conde MD Aug 07, 2016 11:40
[2016-08-06] MEDS: LEVOFLOXACIN 750 MG TAB PO SCH (17:24)
[2016-08-06] MEDS: MIRTAZAPINE 15 MG TAB PO SCH (20:37)
[2016-08-06] MEDS: TAMSULOSIN HCL 0.4 MG CAP PO SCH (20:38)
[2016-08-06] MEDS: ALPRAZolam 1 MG TAB PO PRN (20:38)
[2016-08-06] MEDS: SODIUM CHLORIDE 0.9% FLUSH 5 ML FLUSH FLUSH SCH (20:38)
[2016-08-07 00:30] VITALS: BP 144/81; PULSE 75; RESP 21; TEMP 98.6; O2SAT 94
[2016-08-07 05:45] VITALS: BP 150/75; PULSE 71; RESP 22; TEMP 98.3; O2SAT 92
[2016-08-07 08:00] VITALS: BP 127/73; PULSE 72; RESP 18; TEMP 97.3; O2SAT 95
[2016-08-07] MEDS: BISACODYL 10 MG SUPP RECTAL SCH (09:00)
[2016-08-07] MEDS: THIAMINE HCL 100 MG TAB PO SCH ×2 (09:00→10:02)
[2016-08-07] MEDS: PANTOPRAZOLE SOD 40 MG DELAYED RELEASE TAB PO SCH (10:02)
[2016-08-07] MEDS: DOCUSATE SODIUM 100 MG CAP PO SCH (10:03)
[2016-08-07] MEDS: PREGABALIN 75 MG CAP PO SCH (10:03)
[2016-08-07] MEDS: FLUoxetine HCL 20 MG CAP PO SCH (10:03)
[2016-08-07] MEDS: NYSTATIN SUSP 500,000 U/5 ML CUP SWISH-SWAL SCH (10:03)
[2016-08-07] MEDS: SODIUM CHLORIDE 0.9% FLUSH 5 ML FLUSH FLUSH SCH (10:04)
[2016-08-07] MEDS: ALPRAZolam 1 MG TAB PO PRN (10:16)
--- NOTE | 2016-08-07 11:07 | HHI.PR ---
Review/Management Diagnosis/Plan: (1) Generalized weakness Plan: may be 2/2 dehydration, poor po intake. could also have mild serotonin syndrome in the setting of multiple psychotropic medication use and arf r/o infection- has mild fevers. cxr negative. ct brain naicp. ? URI/autoimmune ?myositis doing better ck normal now; no temps crp elevated and aldolase recs neuro intact; good motor strength ck normal; no temps f/u eunice, anti-melania abs ok to d/c from neuro and outpatient f/u in 1-2 weeks follow exam (2) Renal insufficiency Plan: ivf (3) Depression Plan: seen by psych in the past (4) Tobacco abuse Plan: cessation d/w pt Subjective Subjective Comments No acute events reported No headache No chest pain No dyspnea Active Medications Current Medications Medications (Trade) Dose Ordered Sig/Noe Route Start Time Stop Time Status Last Admin (NS Flush) 2 ml UNSCH PRN FLUSH 07/31/16 13:30 (NS Flush) 2 ml BID FLUSH 07/31/16 21:00 08/07/16 10:04 (Colace) 100 mg Q12HR PO 07/31/16 13:30 08/07/16 10:03 (Heparin Inj) 5,000 units Q12H SQ 07/31/16 14:00 Hold 08/02/16 01:42 (Narcan Inj) 0.4 mg UNSCH PRN IV 07/31/16 13:30 (Mycostatin Liq) 5 ml QID SWISH-SWAL 07/31/16 18:00 08/07/16 10:03 (Mondovi 5-325 Mg) 1 tab Q4H PRN PO 07/31/16 18:15 08/02/16 21:31 (Xanax) 2 mg Q8H PRN PO 07/31/16 21:45 08/07/16 10:16 (PROzac) 20 mg DAILY PO 08/01/16 09:00 08/07/16 10:03 (Remeron) 45 mg HS PO 07/31/16 21:45 08/06/16 20:37 (Flomax) 0.4 mg HS PO 07/31/16 21:45 08/06/16 20:38 (Protonix) 40 mg DAILY PO 08/01/16 09:00 08/07/16 10:02 (Lyrica) 75 mg BID PO 08/01/16 09:00 08/07/16 10:03 (Tylenol) 650 mg Q6H PRN PO 08/01/16 18:13 08/03/16 16:02 (Catapres) 0.1 mg Q6H PRN PO 08/03/16 15:45 08/03/16 16:02 (Milk Of Magnesia Liq) 30 ml DAILY PRN PO 08/04/16 14:45 08/05/16 08:31 (Levaquin) 750 mg Q24H PO 08/04/16 16:00 08/06/16 17:24 (Vitamin B1) 200 mg DAILY PO 08/05/16 12:30 08/07/16 09:00 (Dulcolax Supp) 10 mg DAILY RECTAL 08/05/16 16:30 08/05/16 21:06 (Preparation H Oint) APPLY TO ANUS Q6H PRN RECTAL 08/06/16 11:00 Allergies Allergies Coded Allergies Penicillin (Verified Allergy, Intermediate, 01/23/15) Review of Systems All other ROS: ROS reviewed as documented in chart Exam I&O / VS 08/06/16 08/06/16 08/07/16 15:00 23:00 07:00 Intake Total 240 ml 240 ml 240 ml Output Total 400 ml 350 ml 300 ml Balance -160 ml -110 ml -60 ml Intake Oral 240 ml 240 ml 240 ml Output Urine Total 400 ml 350 ml 300 ml # Bowel Movements 0 0 Vital Signs Date Time Temp Pulse Resp B/P Pulse Ox O2 Delivery O2 Flow Rate FiO2 08/07/16 08:00 97.3 72 18 127/73 95 08/07/16 05:45 98.3 71 22 150/75 92 08/07/16 00:30 98.6 75 21 144/81 94 08/06/16 20:15 98.4 71 20 127/77 95 08/06/16 16:00 97.5 65 18 155/86 98 08/06/16 12:00 96.5 78 18 125/71 95 General: Alert and Oriented, No acute distress Eye: EOMI Respiratory: Non-labored respirations Cardiology: Normal rate Musculoskeletal: ROM Neurologic: Alert, Oriented, Normal sensory, CN II-XII intact, Gag reflex normal, Normal DTR's Psychiatric: Cooperative, Appropriate mood & affect Exam Comments alert, ox 3, neck supple, eomi, face sym, vff, motor 5/5 all 4 ext prox and distally, msr symmetric trace to 1+, no clonus, planterflexor; able to stand and ambulate Objective Micro and Labs Laboratory Tests Test 08/07/16 04:47 Total Creatine Kinase 280 Problem Qualifiers (1) Depression: Marco Gould MD Aug 07, 2016 11:07
--- NOTE | 2016-08-07 11:32 | HHI.PR ---
Subjective Interval History No more fever no cp no sob leg pain almost done getting up and ambulating, feels much more improved no diarrhea no n/v wants to go home Review of Systems 12 point ROS completed, negative except as noted above Review of Systems Constitutional Constitutional: Fatigue, Weakness Pulmonary Respiratory: Coughing (mild hacky, nonproductive), Wheezing Psychiatric Psychiatric: Depression (noted per neurology) Vitals/Results Intake & Output 08/06/16 08/06/16 08/07/16 15:00 23:00 07:00 Intake Total 240 ml 240 ml 240 ml Output Total 400 ml 350 ml 300 ml Balance -160 ml -110 ml -60 ml Intake Oral 240 ml 240 ml 240 ml Output Urine Total 400 ml 350 ml 300 ml # Bowel Movements 0 0 Vital Signs Vital Signs Date Time Temp Pulse Resp B/P Pulse Ox O2 Delivery O2 Flow Rate FiO2 08/07/16 08:00 97.3 72 18 127/73 95 08/07/16 05:45 98.3 71 22 150/75 92 08/07/16 00:30 98.6 75 21 144/81 94 08/06/16 20:15 98.4 71 20 127/77 95 08/06/16 16:00 97.5 65 18 155/86 98 08/06/16 12:00 96.5 78 18 125/71 95 CBC/BMP: 08/06/16 0453 08/06/16 0453 Lab Results Laboratory Tests Test 08/07/16 04:47 Total Creatine Kinase 280 U/L Physical Exam General General Appearance: Well Developed, No Acute Distress, Comfortable Eyes Eye Exam: Pupils Equal, Pupils Reactive, Sclera White Ears & Nose Ears & Nose Exam: Nasal Mucosa [employer] Throat Throat Exam: Oral Mucosa [employer] & Moist Neck Neck Exam: Neck Supple, Trachea Midline Pulmonary Resp Exam: Breath Sounds Equal, Diminished Breath Sounds Resp Remarks Diminished breath sounds only bibasally Cardiology CV Exam: Regular Chest/Breast Chest/Breast Exam: Symmetry Gastrointestinal/Abdomen GI Exam: Soft, Non-Tender, Bowel Sounds Present, Non-Distended Musculoskeletal MS Exam: Joints Intact Integumentary Skin Exam: Warm, Dry Extremeties Extremities Exam: No Edema, Pedal Pulses Palpable Neurologic Neuro Exam: Alert, Oriented, Speech Clear, Moving All Extremities, No Focal Deficits Psychiatric Psych Exam: Appropriate Responses VTE Prophylaxis VTE Prophylaxis Meds: Heparin PUD Prophylasis PUD Prophylaxis: Protonix Assessment/Plan Problem List: (1) Generalized weakness (2) Rhabdomyolysis (3) Tobacco abuse (4) COPD (chronic obstructive pulmonary disease) (5) Renal insufficiency (6) Depression (7) Fever (8) Leukopenia (9) History of CVA (cerebrovascular accident) Assessment/Plan imaging studies reviewed, old CVA, no new findings, possible depression appreciate neuro input, D/W Dr. Gould, poss. due to dehydration vs mild serotonin syndrome, noted with leukopenia ? med induced vs viral. Agrees with ID input. Hold off on LP for now if no other cause for fever. Consider polymyalgia rheumatica poss. PO steroids. Pt. improved, recommends to hold LP. As per neurology okay to discharge and follow as outpatient Echo done, EF 35-40% EEG negative overall improving, ambulating continue with PT Monitor labs low thiamine, PO replacement Appreciate ID input No more low grade fever further work up ordered -HIV, Hepatitis, EBV and CMV will f/u as outpatient by PCP COPD with Chronic bronchitis Duonebs oxygen Walk test to find out whether he needs oxygen at home leukopenia improving platelets also coming up noted with elevated CPK, rhabdo CPK within normal renal fx stable Tobacco abuse counseling given Duonebs QID SCDs for DVT prophylaxis, avoid Heparin due to low platelets PPI for GI prophylaxis Brynn regimen OOB with PT. Patient did walk CM for DC planning, hopefully dc home today with home health care as patient wanted to go home only. He doesn't want to go to SNF D/W RN D/W pt Problem Qualifiers (1) Rhabdomyolysis: Qualified Code: M62.82 - Non-traumatic rhabdomyolysis (2) COPD (chronic obstructive pulmonary disease): Qualified Code: J42 - Chronic bronchitis, unspecified chronic bronchitis type (3) Depression: (4) Fever: Qualified Code: R50.9 - Fever, unspecified fever cause (5) Leukopenia: Qualified Code: D72.819 - Leukopenia, unspecified type Jackeline Conde MD Aug 07, 2016 11:32
[2016-08-07] MEDS ORDERED: ALPR2TAB3 PO (11:36)
[2016-08-07] MEDS ORDERED: VITA100T2 PO (11:36)
[2016-08-07] MEDS ORDERED: NYST1000 SWISH-SWAL (11:36)
[2016-08-07] MEDS ORDERED: LEVA750T PO (11:36)
[2016-08-07] MEDS ORDERED: OXYGENTANK NAS.CANULA (11:38)
--- NOTE | 2016-08-07 11:46 | HHI.DS ---
Discharge Summary Admission Date Aug 02, 2016 at 08:08 Admitting Diagnosis generalized weakness, failure to thrive, renal insufficiency (1) Depressive disorder Diagnosis: Principal (2) Generalized weakness Diagnosis: Principal (3) Depression Diagnosis: Principal (4) Renal insufficiency Diagnosis: Principal (5) Fever Diagnosis: Principal (6) Leukopenia Diagnosis: Principal (7) Rhabdomyolysis Diagnosis: Principal (8) History of CVA (cerebrovascular accident) Diagnosis: Principal (9) Bronchitis Diagnosis: Principal (10) Tobacco abuse Diagnosis: Principal (11) COPD (chronic obstructive pulmonary disease) Diagnosis: Principal Brief History This is a pleasant 70-year-old white male who was in his usual state of health up until about two days prior to admission. He noted some chills and fever with generalized weakness. He stated that his appetite has been decreased but he was able to keep down some food yesterday but nothing today. He does complain of some nausea but no vomiting. Denies any chest pain. No headache. No heartburn. No significant weight gain or loss within the past six months. The patient is a chronic tobacco user, states that he does still smoke 2-3 packs of cigarettes a week. the patient was very weak and fatigued but was able to get up and go to the bathroom. the patient states he could not walk. He said his lower extremities felt like rubber, but he denied any numbness or tingling, just stated that he was very, very weak. The patient had nonproductive cough but is not coughing anything up. He had low-grade fever and some mild tachycardia, heart rate in the 80s-100. Patient was admitted put on appropriate medication including antibiotics. ID consult and neurology consult was called in. MRI was done. Also cervical spine CT was done. We did not show any significant finding. ID started workup as well. Culture were negative. Patient was improving slowly. ID recommendation is to give few days of Levaquin. Patient is okay to discharge to follow his primary care doctor and remaining blood tests to be followed by his primary care doctor. As per neurology continue discharge and follow him as outpatient in 2 weeks. As patient is overall stable and good condition plan to discharge him home. With home health care and physical therapy at home. Patient doesn't want to go to SNF. Discussed with RN. Discussed with disease case manager rn. CBC/BMP: 08/06/163 08/06/163 Significant Findings Laboratory Tests Test 08/05/16 08/06/16 06:59 04:53 Blood Urea Nitrogen 6 MG/DL (7-18) 6 MG/DL (7-18) Calcium Level 7.8 MG/DL 8.3 MG/DL (8.5-10.1) (8.5-10.1) White Blood Count 3.8 TH/MM3 (4.0-11.0) Red Blood Count 3.51 MIL/MM3 (4.50-5.90) Hemoglobin 11.3 GM/DL (13.0-17.0) Hematocrit 33.0 % (39.0-51.0) Platelet Count 101 TH/MM3 (150-450) Pt Condition on Discharge: Good Discharge Instructions DIET: Follow Instructions for: Heart Healthy Diet Activities you can perform: Weight Bearing as Jennifer Follow up Referrals: Neurology - 2 Weeks PCP Follow-up - 3-5 Days New Medications: Oxygen tank (Oxygen tank) 1 Ea Tank 2 LITER SUSSY.CANULA CONTINUOUS Oxygen Concentrator Portable Gaseous 2 L/min via Nasal Cannula Continuous For 99 months HYPOXEMIA PREVENTION #2 CYLINDER Levofloxacin (Levaquin) 750 Mg Tab 750 MG PO Q24H infection #7 TAB Nystatin Liq (Nystatin Liq) 100,000 unit/ml Susp 5 ML SWISH-SWAL QID mouth irritation #100 MG Thiamine (Vitamin B-1) 100 Mg Tab 200 MG PO DAILY supplemental #30 TAB Continued Medications: Alprazolam (Alprazolam) 2 Mg Tab 2 MG PO Q8H PRN ANXIETY #30 Ref 0 TAB (This prescription has been renewed) Esomeprazole DR (Esomeprazole DR) 40 Mg Capdr 40 MG PO DAILY #30 Ref 0 CAP Fluoxetine (Fluoxetine) 20 Mg Cap 20 MG PO DAILY #30 Ref 0 CAP Mirtazapine (Mirtazapine) 45 Mg Tab 45 MG PO HS Depression Control #30 Ref 0 TAB Pregabalin (Lyrica) 150 Mg Cap 150 MG PO BID #60 Ref 0 CAP Tamsulosin (Tamsulosin) 0.4 Mg Cap 0.4 CAN PO HS Manage Prostate Problems #30 Ref 0 CAP Jackeline Conde MD Aug 07, 2016 11:46
[2016-08-07 12:00] VITALS: BP 132/75; PULSE 70; RESP 18; TEMP 96; O2SAT 94
[2016-08-08 03:29] LABS: EBV VCA IgM Negative (Negative)
== END 2016-08-07 15:54 | disposition home health service (06) | DRG 641 ==
LOC: NEPC 10:01 → NEDA 13:15 → NEPHCDU 16:57 → OBSVTOIN 08-02 08:08 → N06B 08-03 17:12
PROVIDERS: ADMIT Specialist; ATTEND Specialist
DX: E86.0 Dehydration (principal); M62.82 Rhabdomyolysis; J44.9 Chronic obstructive pulmonary disease, unspecified; R62.7 Adult failure to thrive; N28.9 Disorder of kidney and ureter, unspecified; R50.9 Fever, unspecified; Z86.73 Personal history of transient ischemic attack (TIA), and cerebral infarction without residual deficits; F20.9 Schizophrenia, unspecified; F17.210 Nicotine dependence, cigarettes, uncomplicated; H91.90 Unspecified hearing loss, unspecified ear; Z81.8 Family history of other mental and behavioral disorders; F22 Delusional disorders; F32.9 Major depressive disorder, single episode, unspecified; Z88.0 Allergy status to penicillin; R27.8 Other lack of coordination; D72.819 Decreased white blood cell count, unspecified; R25.1 Tremor, unspecified; E87.6 Hypokalemia; K59.00 Constipation, unspecified
CPT/HCPCS: 70450; 70551; 71010; 72141; 80048; 80053; 80074; 80076; 80202; 81001; 82085; 82533; 82550; 82552; 82607; 83605; 83615; 83874; 84207; 84425; 85025; 85027; 85610; 85652; 85730; 86038; 86140; 86235; 86664; 86665; 86703; 87040; 87070; 87205; 87496; 87804; 88112; 88305; 93005; 93306; 94620; 94640; 94664; 95819; 96360; 96361; G0378; J0133; J0692; J1644; J3370; J7030; J7040; J7050

== ENCOUNTER 2017-05-15 15:14 | Inpatient (IN) | payer MEDICARE, OTHER ==
[~2017-05-15] VITALS: Ht 175.3 cm; Wt 73.3 kg
[~2017-05-15 15:14] MED LIST changes: +ALPR2TAB3 PO; -DOCU1CAP39 PO; +ESOM1CAP16 PO; +FLUO20CA4 PO; -LACT20SO4 PO; +LEVA750T PO; +LYRI150C PO; +MIRT45TA PO; +NYST1000 SWISH-SWAL; -OMEP20TA39 PO; +OXYGENTANK NAS.CANULA; -REME45TA PO; +TAMS0.4C4 PO; -TRAZ50TA4 PO; -VENL75XR PO; +VITA100T2 PO; -ZYPR15TA PO
[2017-05-15 15:28] VITALS: BP 168/97; PULSE 91; RESP 18; TEMP 99.8; O2SAT 95
[2017-05-15] MEDS ORDERED: VITA250T25 PO (15:36)
[2017-05-15] MEDS ORDERED: FLUO20CA12 PO (15:36)
[2017-05-15] MEDS ORDERED: ALPR2TAB3 PO (15:36)
[2017-05-15] MEDS ORDERED: TRAM50TA PO (15:36)
[2017-05-15 15:38] VITALS: BP 168/97; PULSE 91; RESP 18; O2SAT 98
[2017-05-15] MEDS ORDERED: SODIUM CHLOR 0.9% 1000 ML INJ 1,000 ML IV SCH (16:00)
[2017-05-15] MEDS ORDERED: SODIUM CHLORIDE 0.9% FLUSH 5 ML FLUSH IV FLUSH PRN (16:00)
[2017-05-15 16:15] VITALS: O2SAT 99
--- NOTE | 2017-05-15 16:20 | RADRPT ---
EXAM DATE/TIME: 05/15/2017 16:02 [facility] COMPARISON: CHEST SINGLE AP, July 31, 2016, 10:30. INDICATIONS : Short of breath. MEDICAL HISTORY : Hypertension. SURGICAL HISTORY : Cholecystectomy. Tonsillectomy. ENCOUNTER: Initial ACUITY: 1 day PAIN SCORE: Non-responsive. LOCATION: Bilateral chest FINDINGS: A single view of the chest demonstrates the lungs to be symmetrically aerated without evidence of mas s, infiltrate or effusion. The cardiomediastinal contours are unremarkable. Osseous structures are intact. CONCLUSION: No acute cardiopulmonary process. Christopher Wolf MD on May 15, 2017 at 16:17 Board Certified Radiologist. This report was verified electronically.
[2017-05-15] MEDS ORDERED: LORazepam 2 MG/ML VIAL IV PUSH ONE (16:30)
[2017-05-15 16:46] LABS: AUTOMATED NEUTROPHIL # 5.3 TH/MM3 (1.8-7.7); BASOPHIL % 0.4 % (0.0-2.0); HEMATOCRIT 47.1 % (39.0-51.0); HEMO FLAGS DIFF FINAL; LYMPH % 21.5 % (9.0-44.0); LYMPHOCYTE # 1.6 TH/MM3 (1.0-4.8); MEAN CELL VOLUME 94.5 FL (80.0-100.0); MEAN CORPUSCULAR HEMOGLOBIN 31.9 PG (27.0-34.0); MEAN CORPUSCULAR HGB CONC 33.7 % (32.0-36.0); MONO % 6.4 % (0.0-8.0); NEUT % 71.7 % (16.0-70.0); PLATELET COUNT 252 TH/MM3 (150-450); RED BLOOD COUNT 4.98 MIL/MM3 (4.50-5.90); RED CELL DISTRIBUTION WIDTH 14.3 % (11.6-17.2); WHITE BLOOD COUNT 7.4 TH/MM3 (4.0-11.0)
[2017-05-15 16:47] LABS: BLOOD, URINE SMALL (NEG); GLUCOSE,URINE NEG (NEG); KETONE, URINE 40 mg/dL (NEG); MUCUS URINE FEW /lpf (OCC); NITRITE,URINE NEG (NEG); PH, URINE 5.5 (5.0-8.5); URINE COLOR YELLOW (YELLW/STRAW)
[2017-05-15 16:49] LABS: COMMENT (UR) CATH-CULT NOT IND; CULTURE IF INDICATED CATH CULTURE NOT IND
[2017-05-15 17:02] LABS: APTT (PATIENT) 20.5 SEC (24.3-30.1); INTERNATIONAL NORMALIZED RATIO 1.1 RATIO; PROTHROMBIN TIME - PATIENT 11.8 SEC (9.8-11.6)
[2017-05-15 17:05] LABS: ALT (GPT) 39 U/L (12-78); ANION GAP 16 MEQ/L (5-15); AST (GOT) 44 U/L (15-37); BICARBONATE 18.8 MEQ/L (21.0-32.0); BLOOD UREA NITROGEN 34 MG/DL (7-18); CHLORIDE 101 MEQ/L (98-107); GLOMERULAR FILTRATION RATE 66 ML/MIN (>89); POTASSIUM 3.9 MEQ/L (3.5-5.1); SODIUM (NA) 136 MEQ/L (136-145)
[2017-05-15 17:07] LABS: ALCOHOL LESS THAN 3 MG/DL (0-5)
[2017-05-15 17:14] LABS: ALKALINE PHOSPHATASE 89 U/L (45-117); CREATINE KINASE 433 U/L (39-308); TOTAL BILIRUBIN ADULT 1.3 MG/DL (0.2-1.0)
--- NOTE | 2017-05-15 17:17 | RADRPT ---
EXAM DATE/TIME: 05/15/2017 16:44 [facility] COMPARISON: CT BRAIN W/O CONTRAST, July 31, 2016, 11:13. INDICATIONS : Altered mental status since saturday. RADIATION DOSE: 56.35 CTDIvol (mGy) MEDICAL HISTORY : Non-responsive. SURGICAL HISTORY : Cholecystectomy. ENCOUNTER: Initial ACUITY: 4 - 6 days PAIN SCALE: Non-responsive LOCATION: cranial TECHNIQUE: Multiple contiguous axial images were obtained of the head. Using automated exposure control and adj ustment of the mA and/or kV according to patient size, radiation dose was kept as low as reasonably a chievable to obtain optimal diagnostic quality images. DICOM format image data is available electro nically for review and comparison. Moderate motion FINDINGS: CEREBRUM: The ventricles are normal for age. No evidence of midline shift, mass lesion, hemorrhage or acute in farction. No extra-axial fluid collections are seen. POSTERIOR FOSSA: The cerebellum and brainstem are intact. The 4th ventricle is midline. The cerebellopontine angle i s unremarkable. EXTRACRANIAL: The visualized portion of the orbits is intact. SKULL: The calvaria is intact. No evidence of skull fracture. CONCLUSION: Motion otherwise negative. Ko Maza MD FACR on May 15, 2017 at 17:15 Board Certified Radiologist. This report was verified electronically.
[2017-05-15 17:26] LABS: CKMB 8.3 NG/ML (0.5-3.6)
[2017-05-15 17:50] VITALS: BP 156/91; PULSE 76; RESP 21; O2SAT 98
--- NOTE | 2017-05-15 18:10 | PD ---
HPI Chief Complaint: Altered Mental Status Time Seen by Provider: 15:32 Travel History International Travel<30 days: No Contact w/Intl Traveler<30days: No Traveled to known affect area: No History of Present Illness HPI Patient is a 71-year-old male who comes in by EMS after his sister called for a well-being intact. Patient is altered or psychotic and really cannot provide any history. He is talking to people that are not in the room and saying things that are not making sense. Patient was here 2 years ago for psych admission, and does have some psychiatric medications with him, but is not here routinely for psychiatric reasons. PFSH Past Medical History Anxiety: Yes Depression: Yes Cancer: No Cardiovascular Problems: No High Cholesterol: No Diabetes: No Diminished Hearing: Yes Endocrine: No Genitourinary: No Headaches: No Immune Disorder: No Musculoskeletal: No Neurologic: No Psychiatric: Yes (Depression, Delusional Disorder, Major Depressive ) Reproductive: No Respiratory: No Immunizations Current: No Schizophrenia: Yes (PER PATIENTS BROTHER) Seizures: No Thyroid Disease: No Past Surgical History Cholecystectomy: Yes Other Surgery: Yes (gallbladder) Social History Alcohol Use: No Tobacco Use: Yes (3PPD) Substance Use: No Allergies-Medications (Allergen,Severity, Reaction): Coded Allergies: penicillin G (Unverified Allergy, Intermediate, 05/15/17) Reported Meds & Prescriptions Reported Meds & Active Scripts Active Reported Tramadol (Tramadol HCl) 50 Mg Tab 50 Mg PO Q6H PRN Fluoxetine (Fluoxetine HCl) 20 Mg Capsule 20 Mg PO DAILY Vitamin B-1 (Thiamine HCl) 250 Mg Tab 250 Mg PO BID Alprazolam 2 Mg Tab 2 Mg PO Q6H PRN Tamsulosin (Tamsulosin HCl) 0.4 Mg Cap 0.4 Can PO HS Esomeprazole DR 40 Mg Capdr 40 Mg PO DAILY Lyrica (Pregabalin) 150 Mg Cap 150 Mg PO BID Review of Systems ROS Limitations: Altered Mental Status Physical Exam Narrative GENERAL: Awake, but altered. He is speaking to people who are not in the room and not answering questions. SKIN: Focused skin assessment warm/dry. No evidence of infection. HEAD: Atraumatic. Normocephalic. EYES: Pupils equal and round and reactive. No scleral icterus. Extraocular movements intact. ENT: Mucous membranes pink and moist. NECK: Trachea midline. No JVD. CARDIOVASCULAR: Regular rate and rhythm. No murmur appreciated. RESPIRATORY: No accessory muscle use. Clear to auscultation. Breath sounds equal bilaterally. GASTROINTESTINAL: Abdomen soft, non-tender, nondistended. Hepatic and splenic margins not palpable. MUSCULOSKELETAL: No obvious deformities. No clubbing. No cyanosis. No edema. NEUROLOGICAL: Awake but acutely confused. He is speaking to people who are not in the room not making any sense. No obvious cranial nerve deficits. Motor grossly within normal limits. Data Data Last Documented VS Vital Signs Date Time Temp Pulse Resp B/P (MAP) Pulse Ox O2 Delivery O2 Flow Rate FiO2 05/15/17 17:50 76 21 156/91 (112) 98 Room Air 05/15/17 15:28 99.8 Orders Orders Ammonia (05/15/17 16:00) Complete Blood Count With Diff (05/15/17 16:00) Comprehensive Metabolic Panel (05/15/17 16:00) Creatine Kinase (Cpk) (05/15/17 16:00) Prothrombin Time / Inr (Pt) (05/15/17 16:00) Act Partial Throm Time (Ptt) (05/15/17 16:00) Troponin I (05/15/17 16:00) Thyroid Stimulating Hormone (05/15/17 16:00) Urinalysis - C+S If Indicated (05/15/17 16:00) Lactic Acid Sepsis Protocol (05/15/17 16:00) Chest, Single Ap (05/15/17 16:00) Ct Brain W/O Iv Contrast(Rout) (05/15/17 16:00) Blood Glucose (05/15/17 16:00) Ecg Monitoring (05/15/17 16:00) Iv Access Insert/Monitor (05/15/17 16:00) Oximetry (05/15/17 16:00) Sodium Chloride 0.9% Flush (Ns Flush) (05/15/17 16:00) Sodium Chlor 0.9% 1000 Ml Inj (Ns 1000 M (05/15/17 16:00) Alcohol (Ethanol) (05/15/17 16:00) Cath For Specimen (05/15/17 16:26) Lorazepam Inj (Ativan Inj) (05/15/17 16:30) CKMB (05/15/17 16:10) CKMB% (05/15/17 16:10) Electrocardiogram (05/15/17 15:40) Psych Screen (05/15/17 18:01) Labs Laboratory Tests Test 05/15/17 16:10 05/15/17 16:20 White Blood Count 7.4 TH/MM3 Red Blood Count 4.98 MIL/MM3 Hemoglobin 15.9 GM/DL Hematocrit 47.1 % Mean Corpuscular Volume 94.5 FL Mean Corpuscular Hemoglobin 31.9 PG Mean Corpuscular Hemoglobin Concent 33.7 % Red Cell Distribution Width 14.3 % Platelet Count 252 TH/MM3 Mean Platelet Volume 8.3 FL Neutrophils (%) (Auto) 71.7 % Lymphocytes (%) (Auto) 21.5 % Monocytes (%) (Auto) 6.4 % Eosinophils (%) (Auto) 0.0 % Basophils (%) (Auto) 0.4 % Neutrophils # (Auto) 5.3 TH/MM3 Lymphocytes # (Auto) 1.6 TH/MM3 Monocytes # (Auto) 0.5 TH/MM3 Eosinophils # (Auto) 0.0 TH/MM3 Basophils # (Auto) 0.0 TH/MM3 CBC Comment DIFF FINAL Differential Comment Prothrombin Time 11.8 SEC Prothromb Time International Ratio 1.1 RATIO Activated Partial Thromboplast Time 20.5 SEC Blood Urea Nitrogen 34 MG/DL Creatinine 1.11 MG/DL Random Glucose 87 MG/DL Total Protein 8.1 GM/DL Albumin 4.0 GM/DL Calcium Level 9.7 MG/DL Alkaline Phosphatase 89 U/L Aspartate Amino Transf (AST/SGOT) 44 U/L Alanine Aminotransferase (ALT/SGPT) 39 U/L Total Bilirubin 1.3 MG/DL Sodium Level 136 MEQ/L Potassium Level 3.9 MEQ/L Chloride Level 101 MEQ/L Carbon Dioxide Level 18.8 MEQ/L Anion Gap 16 MEQ/L Estimat Glomerular Filtration Rate 66 ML/MIN Lactic Acid Level 1.6 mmol/L Ammonia 19 MCMOL/L Total Creatine Kinase 433 U/L Creatine Kinase MB 8.3 NG/ML Creatine Kinase MB % 1.9 % Troponin I LESS THAN 0.02 NG/ML Thyroid Stimulating Hormone 3rd Gen 2.150 uIU/ML Ethyl Alcohol Level LESS THAN 3 MG/DL Urine Color YELLOW Urine Turbidity CLEAR Urine pH 5.5 Urine Specific Lee 1.023 Urine Protein TRACE mg/dL Urine Glucose (UA) NEG mg/dL Urine Ketones 40 mg/dL Urine Occult Blood SMALL Urine Nitrite NEG Urine Bilirubin NEG Urine Urobilinogen LESS THAN 2.0 MG/DL Urine Leukocyte Esterase NEG Urine RBC 1 /hpf Urine WBC LESS THAN 1 /hpf Urine Amorphous Sediment RARE Urine Mucus FEW /lpf Microscopic Urinalysis Comment CATH-CULT NOT IND MDM Medical Decision Making Medical Screen Exam Complete: Yes Emergency Medical Condition: Yes Medical Record Reviewed: Yes Interpretation(s) ECG shows normal sinus rhythm at 90, no ST elevation or depression. Differential Diagnosis Psychosis versus electrolyte abnormality versus sepsis versus intracranial pathology. Narrative Course Patient is a 71-year-old male who comes in after his sister called for her well- being check. Patient is acutely altered unable to provide any history. IV established, labs sent. Labs show no acute abnormalities. Patient did have a temperature of 99.8 on arrival. I tried to reach the sister, but there was no answer. CT of the head performed shows no acute abnormalities. Chest x-ray shows no acute abnormalities. Patient will be admitted for psychiatric evaluation, admitted to the [facility] psych floor. Placed under Galindo Act. Diagnosis Primary Impression: Psychosis Qualified Codes: F29 - Unspecified psychosis not due to a substance or known physiological condition Additional Impression: Altered mental status Qualified Codes: R41.82 - Altered mental status, unspecified Admitting Information Admitting Physician Requests: Admit Zita Saldana MD May 15, 2017 18:10
[2017-05-15] MEDS ORDERED: MAGNESIUM HYDROXIDE SUSP 30 ML CUP PO PRN (20:30)
[2017-05-15] MEDS ORDERED: ACETAMINOPHEN 325 MG TAB PO PRN (20:30)
[2017-05-15] MEDS: REMOVE OLD NICOTINE PATCH T-DERMAL SCH (20:36)
[2017-05-15] MEDS ORDERED: LORazepam 2 MG/ML VIAL IV PUSH PRN ×3 (23:30)
[2017-05-15] MEDS ORDERED: LORazepam 1 MG TAB PO PRN (23:30)
[2017-05-15] MEDS ORDERED: LORazepam 2 MG TAB PO PRN (23:30)
[2017-05-15] MEDS ORDERED: FLUMAZENIL 0.5 MG/5 ML VIAL IV PUSH PRN (23:30)
[2017-05-16] MEDS: LORazepam 2 MG/ML VIAL IV PUSH PRN ×4 (05:03→15:15)
[2017-05-16 05:40] VITALS: BP 140/84; PULSE 87; RESP 18; TEMP 97.8; O2SAT 95
[2017-05-16] MEDS: NICOTINE 21 MG/24 HR PATCH T-DERMAL SCH (09:00)
[2017-05-16] MEDS ORDERED: cloNIDine HCL 0.1 MG TAB PO PRN (09:30)
[2017-05-16 10:50] LABS: ANION GAP 11 MEQ/L (5-15); BICARBONATE 24.1 MEQ/L (21.0-32.0); BLOOD UREA NITROGEN 30 MG/DL (7-18); CHLORIDE 105 MEQ/L (98-107); GLOMERULAR FILTRATION RATE 66 ML/MIN (>89); POTASSIUM 3.6 MEQ/L (3.5-5.1); SODIUM (NA) 140 MEQ/L (136-145)
[2017-05-16 10:53] LABS: HDL CHOLESTEROL 59.8 MG/DL (40.0-60.0); LDL CHOLESTEROL 120 MG/DL (0-99)
--- NOTE | 2017-05-16 12:33 | HHI.HP ---
Provisional Diagnosis Admission Date May 15, 2017 at 18:15 [place] I. Unspecified psychotic disorder Certification of Person's Competence To Provide Express and Informed Consent I have personally examined Dieter Feliz , a person being served at [facility] on, May 16, 2017 12:30. Express and informed consent means consent voluntarily given in writing, by a competent person, after sufficient explanation and disclosure of the subject matter involved to enable the person to make a knowing and willful decision without any element of force, fraud, deceit, duress, or other form of constraint or coercion. This person is 18 years of age or older, is not now known to be incompetent to consent to treatment with a guardian advocate, and does not have a health care surrogate or proxy currently making medical treatment decisions. I have found this person to be one of the following: [] Competent to provide express and informed consent, as defined above, for voluntary admission to this facility and is competent to provide express and informed consent for treatment. He/she has the consistent capacity to make well reasoned, willful, and knowing decisions concerning his or her medical or mental health treatment. The person fully and consistently understands the purpose of the admission for examination/placement and is fully capable of personally exercising all rights [place] [x] Incompetent to provide express and informed consent to voluntary admission, and this is incompetent to provide express and informed consent to treatment. The person must be transferred to involuntary status and a petition for a guardian advocate filed with the Circuit Court. [] Refusing to provide express and informed consent to voluntary admission but is competent to provide express and informed consent for treatment. The person must be discharged or transferred to involuntary status. Form shall be completed within 24 hours of a person's arrival at the receiving facility and filed in the clinical record of each person: 1. Admitted on a voluntary basis 2. Permitted to provide express and informed consent to his/her own treatment 3. Allowed to transfer from involuntary to voluntary status 4. Prior to permitting a person to consent to his or her own treatment after having been previously found incompetent to consent to treatment. History of Present Illness Capacity: Has Capacity HPI Patient is 71-year-old man, lives alone at [facility], [facility], the past psychiatric history of depression, anxiety, unspecified psychosis, previous psychiatric hospitalizations, no previous suicide attempt as per chart or self-injurious behavior, remote history of alcohol use disorder, was brought in by EMS activated by his sister after she was concerned for his well-being and medial will check call. Patient was placed under Galindo act due to concern of his ability to take care of himself as he was noted to have altered mental status, talking to people who were not there and making nonsensical statements. While in the ED patient had a head CT which was negative, chest x-ray which is negative and transferred to the inpatient psychiatry unit for further evaluation and management. Patient was found lying in hospital bed, cooperative interview today. But noted to be very disoriented alert and oriented only to person. Was difficult for patient to engage in interview as she was noted to be disorganized at times making nonsensical statements and was not able to elaborate on answers. Patient was able to answer only concrete questions or answering yes or no but noted to have any spontaneous speech. Patient states that he does not remember events surrounding his admission states the last he remembers was "getting hurt". Patient states that he does take several medications which she can't remember at this time but did admit to taking Xanax 3 mg tablet 3 times a day. Patient recalls having fallen at home when asked about his abrasions and his face in his hands. Patient noted to be slightly lethargic during interview it difficult time staying awake from interview. Due to patient's confusion patient unable to continue meaningful and engaging in interview. Past psychiatric history: Previous psychiatric diagnoses of depression, anxiety , psychosis, previous psychiatric hospitalizations, no previous suicide attempts or self-injurious behavior as per chart. As per chart prior medication trials include Effexor, Zyprexa, Xanax, Lyrica. Unclear whether patient has outpatient follow-up. Substance use history: Denies, as well as noneas per collateral. Past medical history: As per chart, history of CVA and COPD Allergies: PCN Social history: lives alone at [facility] Review of Systems Except as stated in HPI: all other systems reviewed are Neg Past Psych History Psychological trauma history Unable to assess due to patient's current symptomatology which is unable to provide adequate history Violence risk - others (6 mos) Low Violence risk - self (6 mos) Elevated due to concern for ability to care for self at this time Substance Abuse History Drugs/Alcohol past 12 months Tobacco use, denies use of any other substance, as per collateral patient is a "social drinker" Past Family Social History Coded Allergies: penicillin G (Unverified Allergy, Intermediate, 05/15/17) Reported Medications Tramadol (Tramadol) 50 Mg Tab, 50 MG PO Q6H Y for PAIN, TAB 0 Refills 05/15/17 Fluoxetine (Fluoxetine) 20 Mg Capsule, 20 MG PO DAILY, #30 CAP 0 Refills 05/15/17 Thiamine (Vitamin B-1) 250 Mg Tab, 250 MG PO BID for Nutritional Supplement, TAB 0 Refills 05/15/17 Alprazolam (Alprazolam) 2 Mg Tab, 2 MG PO Q6H Y for ANXIETY, TAB 05/15/17 Tamsulosin (Tamsulosin) 0.4 Mg Cap, 0.4 CAN PO HS for Manage Prostate Problems, #30 CAP 0 Refills 07/31/[address] (Esomeprazole DR) 40 Mg Capdr, 40 MG PO DAILY, #30 CAP 0 Refills 07/31/16 Pregabalin (Lyrica) 150 Mg Cap, 150 MG PO BID, #60 CAP 0 Refills 07/31/16 Current Medications Medications (Trade) Dose Ordered Sig/Noe Route Start Time Stop Time Status Last Admin (NS Flush) 2 ml UNSCH PRN IV FLUSH 05/15/17 16:00 (Tylenol) 650 mg Q4H PRN PO 05/15/17 20:30 (Milk Of Magnesia Liq) 30 ml DAILY PRN PO 05/15/17 20:30 (Mag-Al Plus Susp Liq) 30 ml Q6H PRN PO 05/15/17 20:30 (Habitrol 21 Mg Patch.24 Hr) 1 patch DAILY T-DERMAL 05/16/17 09:00 05/16/17 09:00 Miscellaneous Information 1 HS T-DERMAL 05/15/17 21:00 05/15/17 20:36 (Ativan) 1 mg Q4H PRN PO 05/15/17 23:30 (Ativan Inj) 1 mg Q4H PRN IV PUSH 05/15/17 23:30 (Ativan) 2 mg Q2H PRN PO 05/15/17 23:30 (Ativan Inj) 2 mg Q2H PRN IV PUSH 05/15/17 23:30 05/16/17 09:56 (Ativan Inj) 2 mg Q1H PRN IV PUSH 05/15/17 23:30 05/15/17 23:41 (Ativan Inj) 2 mg Q15M PRN IV PUSH 05/15/17 23:30 (Romazicon Inj) 0.2 mg Q1M PRN IV PUSH 05/15/17 23:30 (Catapres) 0.1 mg Q6H PRN PO 05/16/17 09:30 Family Psych History Unable to assess due to patient's current symptomatology which is unable to provide adequate history Social History lives alone at [facility] Patient's Strengths (min. 2) Verbal, access to care Physical Exam Patient not noted to be in acute distress, somewhat somnolent, noted to have healing abrasions on face, no gross motor abnormalities, no tremors or EPS, no noted psychomotor retardation or agitation. Vital Signs Vital Signs Date Time Temp Pulse Resp B/P (MAP) Pulse Ox O2 Delivery O2 Flow Rate FiO2 05/16/17 05:40 97.8 87 18 140/84 (102) 95 05/15/17 17:50 Room Air I/O 05/16/17 05/16/17 05/17/17 08:00 16:00 00:00 Intake Total 120 ml 360 ml Balance 120 ml 360 ml Lab Results Labs reviewed. Test 05/15/17 16:10 05/15/17 16:20 05/16/17 09:40 White Blood Count 7.4 TH/MM3 Red Blood Count 4.98 MIL/MM3 Hemoglobin 15.9 GM/DL Hematocrit 47.1 % Mean Corpuscular Volume 94.5 FL Mean Corpuscular Hemoglobin 31.9 PG Mean Corpuscular Hemoglobin Concent 33.7 % Red Cell Distribution Width 14.3 % Platelet Count 252 TH/MM3 Mean Platelet Volume 8.3 FL Neutrophils (%) (Auto) 71.7 % Lymphocytes (%) (Auto) 21.5 % Monocytes (%) (Auto) 6.4 % Eosinophils (%) (Auto) 0.0 % Basophils (%) (Auto) 0.4 % Neutrophils # (Auto) 5.3 TH/MM3 Lymphocytes # (Auto) 1.6 TH/MM3 Monocytes # (Auto) 0.5 TH/MM3 Eosinophils # (Auto) 0.0 TH/MM3 Basophils # (Auto) 0.0 TH/MM3 CBC Comment DIFF FINAL Differential Comment Prothrombin Time 11.8 SEC Prothromb Time International Ratio 1.1 RATIO Activated Partial Thromboplast Time 20.5 SEC Blood Urea Nitrogen 34 MG/DL 30 MG/DL Creatinine 1.11 MG/DL 1.11 MG/DL Random Glucose 87 MG/DL 134 MG/DL Total Protein 8.1 GM/DL Albumin 4.0 GM/DL Calcium Level 9.7 MG/DL 9.3 MG/DL Alkaline Phosphatase 89 U/L Aspartate Amino Transf (AST/SGOT) 44 U/L Alanine Aminotransferase (ALT/SGPT) 39 U/L Total Bilirubin 1.3 MG/DL Sodium Level 136 MEQ/L 140 MEQ/L Potassium Level 3.9 MEQ/L 3.6 MEQ/L Chloride Level 101 MEQ/L 105 MEQ/L Carbon Dioxide Level 18.8 MEQ/L 24.1 MEQ/L Anion Gap 16 MEQ/L 11 MEQ/L Estimat Glomerular Filtration Rate 66 ML/MIN 66 ML/MIN Lactic Acid Level 1.6 mmol/L Ammonia 19 MCMOL/L Total Creatine Kinase 433 U/L Creatine Kinase MB 8.3 NG/ML Creatine Kinase MB % 1.9 % Troponin I LESS THAN 0.02 NG/ML Thyroid Stimulating Hormone 3rd Gen 2.150 uIU/ML Ethyl Alcohol Level LESS THAN 3 MG/DL Urine Color YELLOW Urine Turbidity CLEAR Urine pH 5.5 Urine Specific [place] 1.023 Urine Protein TRACE mg/dL Urine Glucose (UA) NEG mg/dL Urine Ketones 40 mg/dL Urine Occult Blood SMALL Urine Nitrite NEG Urine Bilirubin NEG Urine Urobilinogen LESS THAN 2.0 MG/DL Urine Leukocyte Esterase NEG Urine RBC 1 /hpf Urine WBC LESS THAN 1 /hpf Urine Amorphous Sediment RARE Urine Mucus FEW /lpf Microscopic Urinalysis Comment CATH-CULT NOT IND Urine Opiates Screen NEG Urine Barbiturates Screen NEG Urine Amphetamines Screen NEG Urine Benzodiazepines Screen NEG Urine Cocaine Screen NEG Urine Cannabinoids Screen NEG Triglycerides Level 114 MG/DL Cholesterol Level 203 MG/DL LDL Cholesterol 120 MG/DL HDL Cholesterol 59.8 MG/DL Cholesterol/HDL Ratio 3.39 RATIO Mental Status Examination Appearance: Appropriate Consciousness: Alert Orientation: x4 Motor Activity: Other (not assessed at this time) Speech: Slow, Incoherent (at times) Language: Adequate Fund of Knowledge: Inadequate Attention and Concentration: Inadequate Memory: Impaired Mood: Other ("alright") Affect: Other (noted to be somnolent) Thought Process & Associations: Disorganized Thought Content: Bizarre thinking Hallucination Type: None Delusion Type: None Suicidal Ideation: No Suicidal Plan: No Suicidal Intention: No Homicidal Ideation: No Homicidal Plan: No Homicidal Intention: No Insight: Poor Judgment: Poor Assessment & Plan Problem List: (1) Unspecified psychosis ICD Codes: F29 - Unspecified psychosis not due to a substance or known physiological condition Assessment & Plan Estimated LOS: 5-7 days. Patient is a 71-year-old man who carries a diagnosis of depression, anxiety, unspecified psychosis, previous psychiatric admissions, no previous suicide attempt was brought in by EMS if found to have altered mental status, talking to people who were not there as well as making nonsensical statements. Patient was placed on CIWA protocol and has been scoring above 8 which she has been requiring lorazepam to manage withdrawal signs or symptoms. Patient has no history of recent alcohol use but has history of benzodiazepine use of up to mg by mouth daily which she may be currently going into benzodiazepine withdrawal. We'll continue to monitor today for our requirement of Ativan in 24 hours with plan of putting patient on a longer acting benzodiazepine and begin taper. Will defer starting other psychotropic medications at this time until withdrawal symptoms clear. Perceptual disturbances may be part of his current withdrawal syndrome. Recommendations as per primary medical team. Discharge planning in progress Discharge Planning Patient to return back to his residence once psychiatrically cleared Ramakrishna Valentino MD May 16, 2017 12:33
[2017-05-16 16:06] LABS: HEMOGLOBIN A1a 0.9 %; HEMOGLOBIN A1b 1.6 %; HEMOGLOBIN Ao 85.4 %; HEMOGLOBIN LA1C 2.3 %; HEMOGLOBIN P3 3.6 %
--- NOTE | 2017-05-16 17:41 | EKG ---
Date Performed: 05/15/2017 Time Performed: 15:40:20 PTAGE: 71 years EKG: Sinus rhythm POSSIBLE RIGHT ATRIAL ENLARGEMENT POSSIBLE LEFT ATRIAL ENLARGEMENT BORDERLINE ECG PREVIOUS TRACING : 07/31/2016 10.14 Since the prior tracing, the patient has developed criteria for right atrial enlargement. Clinical correlation to exclude causes of right atrial strain would be recommended. DOCTOR: Olivia Kline Interpretating Date/Time 05/16/2017 17:39:11
[2017-05-16 17:54] VITALS: BP 130/79; PULSE 88; RESP 18; TEMP 97.8; O2SAT 97
--- NOTE | 2017-05-16 18:41 | PD.CONS ---
[facility] [place] [facility]ed By Primary Care Physician Ko Veloz DO Diagnoses: History of Present Illness Mr. Feliz is a 71-year-old male. He was admitted secondary to altered mental status. At admission he was noted to have hypertension. Consult placed regarding hypertension and altered mental status. Etiology of altered mental status may be secondary to substance abuse. She appears to have been taking higher doses already high-dose Xanax and his altered mental status could be related to withdrawal. CAT scan of the brain shows no acute changes to suggest any intracranial bleed or CVA. His condition appears to be a delirium which would correlate with benzodiazepine withdrawal. No seizure activity has been noted. He was placed on the CIWA protocol and with Ativan supplementations his blood pressures have improved. Withdrawal symptoms are not yet significantly improved. He is unable to provide any history when seen. Review of Systems ROS Limitations: Clinical Condition, Altered Mental Status Past Family Social History Allergies: Coded Allergies: penicillin G (Unverified Allergy, Intermediate, 05/15/17) Past Medical History Gen. anxiety disorder Benign prostatic hypertrophy Gastroesophageal reflux disease Chronic pain Dementia Past Surgical History Unable to obtain secondary to delirium Reported Medications Reported Meds & Active Scripts Active Reported Tramadol (Tramadol HCl) 50 Mg Tab 50 Mg PO Q6H PRN Fluoxetine (Fluoxetine HCl) 20 Mg Capsule 20 Mg PO DAILY Vitamin B-1 (Thiamine HCl) 250 Mg Tab 250 Mg PO BID Alprazolam 2 Mg Tab 2 Mg PO Q6H PRN Tamsulosin (Tamsulosin HCl) 0.4 Mg Cap 0.4 Can PO HS Esomeprazole DR 40 Mg Capdr 40 Mg PO DAILY Lyrica (Pregabalin) 150 Mg Cap 150 Mg PO BID Active Ordered Medications Administered Medications Medications (Trade) Dose Ordered Sig/Noe Route PRN Reason Start Time Stop Time Status Last Admin Dose Admin Nicotine (Habitrol 21 Mg Patch.24 Hr) 1 patch DAILY T-DERMAL 05/16/17 09:00 05/16/17 09:00 Miscellaneous Information 1 HS T-DERMAL 05/15/17 21:00 05/15/17 20:36 Lorazepam (Ativan Inj) 2 mg Q2H PRN IV PUSH CIWA 11-14 05/15/17 23:30 05/16/17 12:57 Lorazepam (Ativan Inj) 2 mg Q1H PRN IV PUSH CIWA 15-20 05/15/17 23:30 05/15/17 23:41 Family History Unable to obtain secondary to delirium Social History Unable to obtain secondary to delirium History of smoking based on records Physical Exam Vital Signs Vital Signs Date Time Temp Pulse Resp B/P (MAP) Pulse Ox O2 Delivery O2 Flow Rate FiO2 05/16/17 17:54 97.8 88 18 130/79 (96) 97 05/16/17 05:40 97.8 87 18 140/84 (102) 95 05/15/17 19:01 Physical Exam GENERAL: NAD, A&Ox0, lethargy HEAD: Normocephalic. NECK: Supple, trachea midline. No lymphadenopathy. EYES: No scleral icterus. No injection or drainage. CARDIOVASCULAR: Regular rate and rhythm without murmurs, gallops, or rubs. RESPIRATORY: Breath sounds equal bilaterally. No accessory muscle use. GASTROINTESTINAL: Abdomen soft, non-tender, nondistended. MUSCULOSKELETAL: No cyanosis, or edema, SKIN: Warm and dry. NEURO: No focal neurological deficitis. Laboratory Laboratory Tests Test 05/16/17 09:40 Blood Urea Nitrogen 30 Creatinine 1.11 Random Glucose 134 Calcium Level 9.3 Sodium Level 140 Potassium Level 3.6 Chloride Level 105 Carbon Dioxide Level 24.1 Anion Gap 11 Estimat Glomerular Filtration Rate 66 Triglycerides Level 114 Cholesterol Level 203 LDL Cholesterol 120 HDL Cholesterol 59.8 Cholesterol/HDL Ratio 3.39 Result Diagram: 05/15/17 1610 05/16/17 0940 Assessment and Plan Problem List: (1) Psychosis ICD Code: F29 - Unspecified psychosis not due to a substance or known physiological condition Status: Acute (2) Failure to thrive in adult ICD Code: R62.7 - Adult failure to thrive Status: Acute (3) Dementia, unspecified, without behavioral disturbance ICD Code: F03.90 - Dementia without behavioral disturbance Status: Acute (4) Delusional disorder ICD Code: F22 - Delusional disorder Status: Acute (5) Major depressive disorder with psychotic features ICD Code: F32.3 - Major depressive disorder with psychotic features Status: Acute (6) Generalized weakness ICD Code: R53.1 - Weakness Status: Acute (7) Depression ICD Code: F32.9 - Depression Status: Acute (8) History of CVA (cerebrovascular accident) ICD Code: Z86.73 - Personal history of transient ischemic attack (TIA), and cerebral infarction without residual deficits Status: Acute (9) Depressive disorder ICD Code: F32.9 - Depressive disorder Status: Acute (10) Unspecified psychosis ICD Code: F29 - Unspecified psychosis not due to a substance or known physiological condition (11) Altered mental status ICD Code: R41.82 - Altered mental status, unspecified Status: Acute (12) COPD (chronic obstructive pulmonary disease) ICD Code: J44.9 - Chronic obstructive pulmonary disease, unspecified Status: Acute Assessment and Plan Assessment and plan 71-year-old male admitted secondary to altered mental status Altered mental status Etiology may be benzodiazepine withdrawal Patient also has a history of psychosis so this could be contributory Baseline of dementia by history/records Dementia could be contributory Hypertension Resolved for now, monitor for recurrence Improved with benzodiazepine As needed clonidine provided Monitor blood pressures Adjust blood pressure treatments if needed Benign prostatic hypertrophy Continue Flomax Gastroesophageal reflux disease Continue PPI Nicotine dependence Continue daily NicoDerm DVT prophylaxis SCDs, which may be discontinued when patient ambulatory Due to seizure risk anticoagulants avoided at this point Problem Qualifiers (1) Psychosis: Qualified Codes: F29 - Unspecified psychosis not due to a substance or known physiological condition (2) Altered mental status: Qualified Codes: R41.82 - Altered mental status, unspecified Seth Carroll MD May 16, 2017 18:41
[2017-05-16] MEDS ORDERED: PILL SPLITTER OTHER PRN (19:00)
[2017-05-16] MEDS: THIAMINE HCL 100 MG TAB PO SCH (20:54)
[2017-05-16] MEDS: TAMSULOSIN HCL 0.4 MG CAP PO SCH (20:54)
[2017-05-16] MEDS: REMOVE OLD NICOTINE PATCH T-DERMAL SCH (21:00)
[2017-05-16] MEDS: PREGABALIN 75 MG CAP PO SCH (21:31)
[2017-05-17 05:55] VITALS: BP 140/85; PULSE 95; RESP 17; TEMP 98; O2SAT 94
[2017-05-17] MEDS: PREGABALIN 75 MG CAP PO SCH ×2 (08:00→21:13)
[2017-05-17] MEDS: PANTOPRAZOLE SOD 40 MG DELAYED RELEASE TAB PO SCH (08:01)
[2017-05-17] MEDS: NICOTINE 21 MG/24 HR PATCH T-DERMAL SCH (08:01)
[2017-05-17] MEDS: THIAMINE HCL 100 MG TAB PO SCH ×2 (08:01→21:13)
--- NOTE | 2017-05-17 09:56 | HHI.PR ---
Subjective Remarks No acute distress when seen. His mental status is improved compared to previous assessment. Blood pressures have remained stable. Mild elevation in cholesterol levels. Objective Vital Signs Date Time Temp Pulse Resp B/P (MAP) Pulse Ox O2 Delivery O2 Flow Rate FiO2 05/17/17 05:55 98.0 95 17 140/85 (103) 94 05/16/17 17:54 97.8 88 18 130/79 (96) 97 I/O 05/16/17 05/16/17 05/16/17 05/17/17 05/17/17 05/17/17 07:00 15:00 23:00 07:00 15:00 23:00 Intake Total 360 ml 1440 ml 480 ml Output Total 400 ml 1 ml Balance -40 ml 1439 ml 480 ml Intake Oral 360 ml 1440 ml 480 ml Output Urine Total 400 ml 1 ml # Voids 1 2 # Bowel Movements 1 Result Diagram: 05/15/17 1610 05/16/17 0940 Objective Remarks GENERAL: NAD, A&Ox2 HEAD: Normocephalic. NECK: Supple, trachea midline. No lymphadenopathy. EYES: No scleral icterus. No injection or drainage. CARDIOVASCULAR: Regular rate and rhythm without murmurs, gallops, or rubs. RESPIRATORY: Breath sounds equal bilaterally. No accessory muscle use. GASTROINTESTINAL: Abdomen soft, non-tender, nondistended. MUSCULOSKELETAL: No cyanosis, or edema. SKIN: Warm and dry. NEURO: No focal neurological deficitis. A/P Problem List: (1) Altered mental status ICD Code: R41.82 - Altered mental status, unspecified Status: Acute Assessment and Plan Assessment and plan 71-year-old male admitted secondary to altered mental status Altered mental status Etiology may be benzodiazepine withdrawal Currently improved Continue to monitor and continue withdrawal protocol Baseline of dementia by history/records Dementia could be contributory Hypertension Resolved for now, monitor for recurrence As needed clonidine provided Monitor blood pressures Adjust blood pressure treatments if needed Benign prostatic hypertrophy Continue Flomax Gastroesophageal reflux disease Continue PPI Nicotine dependence Continue daily NicoDerm Hyperlipidemia Monitor as an outpatient Mildly elevated at this point At his age I would attempt dietary changes before considering statin DVT prophylaxis SCDs, which may be discontinued when patient ambulatory Due to seizure risk anticoagulants avoided at this point Problem Qualifiers (1) Altered mental status: Qualified Codes: R41.82 - Altered mental status, unspecified Seth Carroll MD May 17, 2017 09:56
--- NOTE | 2017-05-17 10:25 | PD.PSY.CON ---
Provisional Diagnosis Admission Date May 15, 2017 at 18:15 [place]. Unspecified psychotic disorder History of Present Illness Service Psychiatry Consult Requested By Dr. Valentino Reason for Consult Second opinion Primary Care Physician Ko Veloz, DO HPI Patient is 71-year-old man, lives alone at [facility], the past psychiatric history of depression, anxiety, unspecified psychosis, previous psychiatric hospitalizations, no previous suicide attempt as per chart or self-injurious behavior, remote history of alcohol use disorder, was brought in by EMS activated by his sister after she was concerned for his well-being and [facility] will check call. Patient was placed under [place] act due to concern of his ability to take care of himself as he was noted to have altered mental status, talking to people who were not there and making nonsensical statements. While in the ED patient had a head CT which was negative, chest x-ray which is negative and transferred to the inpatient psychiatry unit for further evaluation and management. Patient was found lying in hospital bed, cooperative interview today. But noted to be very disoriented alert and oriented only to person. Was difficult for patient to engage in interview as she was noted to be disorganized at times making nonsensical statements and was not able to elaborate on answers. Patient was able to answer only concrete questions or answering yes or no but noted to have any spontaneous speech. Patient states that he does not remember events surrounding his admission states the last he remembers was "getting hurt". Patient states that he does take several medications which she can't remember at this time but did admit to taking Xanax 3 mg tablet 3 times a day. Patient recalls having fallen at home when asked about his abrasions and his face in his hands. Patient noted to be slightly lethargic during interview it difficult time staying awake from interview. Due to patient's confusion patient unable to continue meaningful and engaging in interview. Today for psychiatric evaluation for second opinion patient is found calm, cooperative, in a good spirit, but pleasantly demented. He reports good mood, he says that he feels much better. He denies suicidal and homicidal ideation, he denies visual and auditory hallucinations. Past Family Social History Coded Allergies: penicillin G (Unverified Allergy, Intermediate, 05/15/17) Reported Medications Tramadol (Tramadol) 50 Mg Tab, 50 MG PO Q6H Y for PAIN, TAB 0 Refills 05/15/17 Fluoxetine (Fluoxetine) 20 Mg Capsule, 20 MG PO DAILY, #30 CAP 0 Refills 05/15/17 Thiamine (Vitamin B-1) 250 Mg Tab, 250 MG PO BID for Nutritional Supplement, TAB 0 Refills 05/15/17 Alprazolam (Alprazolam) 2 Mg Tab, 2 MG PO Q6H Y for ANXIETY, TAB 05/15/17 Tamsulosin (Tamsulosin) 0.4 Mg Cap, 0.4 CAN PO HS for Manage Prostate Problems, #30 CAP 0 Refills 07/31/[address] (Esomeprazole DR) 40 Mg Capdr, 40 MG PO DAILY, #30 CAP 0 Refills 07/31/16 Pregabalin (Lyrica) 150 Mg Cap, 150 MG PO BID, #60 CAP 0 Refills 07/31/16 Current Medications Medications (Trade) Dose Ordered Sig/Noe Route Start Time Stop Time Status Last Admin (NS Flush) 2 ml UNSCH PRN IV FLUSH 05/15/17 16:00 (Tylenol) 650 mg Q4H PRN PO 05/15/17 20:30 (Milk Of Magnesia Liq) 30 ml DAILY PRN PO 05/15/17 20:30 (Mag-Al Plus Susp Liq) 30 ml Q6H PRN PO 05/15/17 20:30 (Habitrol 21 Mg Patch.24 Hr) 1 patch DAILY T-DERMAL 05/16/17 09:00 05/17/17 08:01 Miscellaneous Information 1 HS T-DERMAL 05/15/17 21:00 05/16/17 21:00 (Ativan) 1 mg Q4H PRN PO 05/15/17 23:30 05/16/17 23:06 (Ativan Inj) 1 mg Q4H PRN IV PUSH 05/15/17 23:30 (Ativan) 2 mg Q2H PRN PO 05/15/17 23:30 (Ativan Inj) 2 mg Q2H PRN IV PUSH 05/15/17 23:30 05/16/17 15:15 (Ativan Inj) 2 mg Q1H PRN IV PUSH 05/15/17 23:30 05/15/17 23:41 (Ativan Inj) 2 mg Q15M PRN IV PUSH 05/15/17 23:30 (Romazicon Inj) 0.2 mg Q1M PRN IV PUSH 05/15/17 23:30 (Catapres) 0.1 mg Q6H PRN PO 05/16/17 09:30 (Lyrica) 150 mg BID PO 05/16/17 21:00 05/17/17 08:00 (Flomax) 0.4 mg HS PO 05/16/17 21:00 05/16/17 20:54 (Protonix) 40 mg DAILY PO 05/17/17 09:00 05/17/17 08:01 (Vitamin B1) 250 mg BID PO 05/16/17 21:00 05/17/17 08:01 (Pill Splitter) 1 ea UNSCH PRN OTHER 05/16/17 19:00 Patient's Strengths (min. 2) Verbal, access to care Physical Exam Vital Signs Vital Signs Date Time Temp Pulse Resp B/P (MAP) Pulse Ox O2 Delivery O2 Flow Rate FiO2 05/17/17 05:55 98.0 95 17 140/85 (103) 94 05/15/17 17:50 Room Air Mental Status Examination Appearance: Appropriate Consciousness: Alert Orientation: x4 Motor Activity: Other (not assessed at this time) Speech: Slow, Incoherent (at times) Language: Adequate Fund of Knowledge: Inadequate Attention and Concentration: Inadequate Memory: Impaired Mood: Other ("alright") Affect: Other (noted to be somnolent) Thought Process & Associations: Disorganized Thought Content: Bizarre thinking Hallucination Type: None Delusion Type: None Suicidal Ideation: No Suicidal Plan: No Suicidal Intention: No Homicidal Ideation: No Homicidal Plan: No Homicidal Intention: No Insight: Poor Judgment: Poor Assessment & Plan Problem List: (1) Unspecified psychosis ICD Codes: F29 - Unspecified psychosis not due to a substance or known physiological condition Assessment & Plan: I have seen and examined this patient, discussed with Dr. Valentino, reviewed the documentation, and I agree and concur with his assessment and plan. Assessment & Plan Estimated LOS: Handy Mariscal MD May 17, 2017 10:25
--- NOTE | 2017-05-17 15:50 | HHI.PYPN ---
Subjective Remarks Patient seen for follow, chart reviewed. Discussion with the staff reported the patient continues to be confused at times but denies any perceptual disturbances recently, continues to have some garbled speech, CIWA scoress have been low today. Patient found sitting on hospital bed eating lunch was able to interact in cooperative with interview. Patient noted to be slightly more responsive and engaging and noted to have more attention than yesterday and continues to make some nonsensical statements. Patient states this was "alright ", is alert and oriented to person and that he is in the hospital but not to city or state nor date. Patient denies any SI or HI, denies any auditory or visual hallucinations today. Patient mentions a reference to his brother and recent arguments and something related to substances but was unable to organize his thoughts. Review of Systems Except as stated in HPI: all other systems reviewed are Neg Mental Status Examination Appearance: Appropriate Consciousness: Alert Orientation: x4 Motor Activity: Other (not assessed at this time) Speech: Slow, Incoherent (at times) Language: Adequate Fund of Knowledge: Inadequate Attention and Concentration: Inadequate Memory: Impaired Mood: Other ("alright") Affect: Blunt Thought Process & Associations: Loose associations, Disorganized Thought Content: Bizarre thinking Hallucination Type: None Delusion Type: None Suicidal Ideation: No Suicidal Plan: No Suicidal Intention: No Homicidal Ideation: No Homicidal Plan: No Homicidal Intention: No Insight: Poor Judgment: Poor Results Vitals/IOs Vital Signs Date Time Temp Pulse Resp B/P (MAP) Pulse Ox O2 Delivery O2 Flow Rate FiO2 05/17/17 05:55 98.0 95 17 140/85 (103) 94 05/15/17 17:50 Room Air Assessment & Plan Problem List: (1) Unspecified psychosis ICD Codes: F29 - Unspecified psychosis not due to a substance or known physiological condition Assessment & Plan Patient at this time continues to be noted to be confused, unable to have meaningful engaging in interview as patient continues be noted to be disorganized. Patient noted to be more alert with more attention and denies any perceptual disturbances endorse SI or HI. We'll start quetiapine 50 mg by mouth twice a day with upper titration for psychosis. Continue to CIWA protocol. Continue rest of medications. Recommendations as per primary medical team. Discharge planning in progress Justification for Cont. Inpt. At risk for further decompensation if at lower level of care Discharge Planning Patient to return back to residence once psychiatrically stable Ramakrishna Valentino MD May 17, 2017 15:50
[2017-05-17] MEDS: QUEtiapine FUMARATE 25 MG TAB PO SCH ×2 (16:40→21:13)
[2017-05-17 18:13] VITALS: BP 116/61; PULSE 75; RESP 18; TEMP 98.1; O2SAT 97
[2017-05-17] MEDS: REMOVE OLD NICOTINE PATCH T-DERMAL SCH (21:00)
[2017-05-17] MEDS: TAMSULOSIN HCL 0.4 MG CAP PO SCH (21:13)
[2017-05-18 05:42] VITALS: BP 155/78; PULSE 74; RESP 17; TEMP 98.1; O2SAT 96
[2017-05-18] MEDS: QUEtiapine FUMARATE 25 MG TAB PO SCH ×2 (08:38→21:11)
[2017-05-18] MEDS: PREGABALIN 75 MG CAP PO SCH ×2 (08:38→21:10)
[2017-05-18] MEDS: PANTOPRAZOLE SOD 40 MG DELAYED RELEASE TAB PO SCH (08:38)
[2017-05-18] MEDS: THIAMINE HCL 100 MG TAB PO SCH ×2 (08:39→21:10)
[2017-05-18] MEDS: NICOTINE 21 MG/24 HR PATCH T-DERMAL SCH (08:39)
[2017-05-18 14:38] VITALS: BP 189/86; PULSE 61
[2017-05-18] MEDS: ALUMINUM/MAGNESIUM/SIMETH 30 ML CUP PO PRN (17:21)
[2017-05-18 17:22] VITALS: BP 150/80; PULSE 72; RESP 17; TEMP 98.2; O2SAT 98
--- NOTE | 2017-05-18 17:58 | HHI.PYPN ---
Subjective Remarks Pt seen and discussed with staff. Pt has been compliant with care and medications. He is confused but has not been displaying hallucinatory behavior. He rambles and states that people were watching him and that the HALF-WAY has disappeared. No aggression or agitation. No SI/HI Mental Status Examination Appearance: Appropriate Consciousness: Alert Orientation: x4 Motor Activity: Other (not assessed at this time) Speech: Slow, Incoherent (at times) Language: Adequate Fund of Knowledge: Inadequate Attention and Concentration: Inadequate Memory: Impaired Mood: Other ("alright") Affect: Blunt Thought Process & Associations: Loose associations, Disorganized Thought Content: Bizarre thinking Hallucination Type: None Delusion Type: None Suicidal Ideation: No Suicidal Plan: No Suicidal Intention: No Homicidal Ideation: No Homicidal Plan: No Homicidal Intention: No Insight: Poor Judgment: Poor Results Vitals/IOs Vital Signs Date Time Temp Pulse Resp B/P (MAP) Pulse Ox O2 Delivery O2 Flow Rate FiO2 05/18/17 17:22 98.2 72 17 150/80 (103) 98 05/15/17 17:50 Room Air Intake and Output 05/18/17 05/18/17 05/19/17 08:00 16:00 00:00 Intake Total 360 ml 120 ml 480 ml Balance 360 ml 120 ml 480 ml Assessment & Plan Problem List: (1) Unspecified psychosis ICD Codes: F29 - Unspecified psychosis not due to a substance or known physiological condition Assessment & Plan Continue current tx plan. Estimated LOS: days Justification for Cont. Inpt. impairments in reality testing Bree Lares MD May 18, 2017 17:58
[2017-05-18] MEDS: REMOVE OLD NICOTINE PATCH T-DERMAL SCH (21:00)
[2017-05-18] MEDS: TAMSULOSIN HCL 0.4 MG CAP PO SCH (21:10)
[2017-05-19 06:28] VITALS: BP 142/81; PULSE 72; RESP 16; TEMP 97.7; O2SAT 97
[2017-05-19] MEDS: QUEtiapine FUMARATE 25 MG TAB PO SCH ×2 (08:16→20:26)
[2017-05-19] MEDS: PREGABALIN 75 MG CAP PO SCH ×2 (08:16→20:25)
[2017-05-19] MEDS: PANTOPRAZOLE SOD 40 MG DELAYED RELEASE TAB PO SCH (08:16)
[2017-05-19] MEDS: THIAMINE HCL 100 MG TAB PO SCH ×2 (08:16→20:25)
[2017-05-19] MEDS: NICOTINE 21 MG/24 HR PATCH T-DERMAL SCH (08:16)
[2017-05-19] MEDS: LISINOPRIL 10 MG TAB PO SCH (08:54)
[2017-05-19 11:15] VITALS: BP 143/80; PULSE 72; RESP 16; O2SAT 99
[2017-05-19] MEDS ORDERED: RESP: ALBUTEROL 2.5 MG/3 ML NEB (SCH) NEB ONE (13:15)
--- NOTE | 2017-05-19 16:34 | HHI.PYPN ---
Subjective Remarks Pt seen and discussed with staff. He has been irritable and c/o of anxiety.No SI /HI. Compliant with medications. Mental Status Examination Appearance: Appropriate Consciousness: Alert Orientation: x4 Motor Activity: Other (not assessed at this time) Speech: Slow, Incoherent (at times) Language: Adequate Fund of Knowledge: Inadequate Attention and Concentration: Inadequate Memory: Impaired Mood: Anxious Affect: Anxious Thought Process & Associations: Loose associations, Disorganized Thought Content: Bizarre thinking Hallucination Type: None Delusion Type: None Suicidal Ideation: No Suicidal Plan: No Suicidal Intention: No Homicidal Ideation: No Homicidal Plan: No Homicidal Intention: No Insight: Poor Judgment: Poor Results Vitals/IOs Vital Signs Date Time Temp Pulse Resp B/P (MAP) Pulse Ox O2 Delivery O2 Flow Rate FiO2 05/19/17 11:15 72 16 143/80 (101) 99 05/19/17 06:28 97.7 05/15/17 17:50 Room Air Intake and Output 05/19/17 05/19/17 05/20/17 08:00 16:00 00:00 Intake Total 480 ml 120 ml Balance 480 ml 120 ml Assessment & Plan Problem List: (1) Unspecified psychosis ICD Codes: F29 - Unspecified psychosis not due to a substance or known physiological condition Assessment & Plan Continue current tx plan. Vistaril for anxiety Estimated LOS: days Justification for Cont. Inpt. impairments in reality testing Bree Lares MD May 19, 2017 16:34
[2017-05-19] MEDS ORDERED: hydrOXYzine HCL 25 MG TAB PO PRN (16:45)
[2017-05-19] MEDS ORDERED: hydrOXYzine HCL 10 MG TAB PO PRN (17:15)
--- NOTE | 2017-05-19 17:15 | HHI.PR ---
Subjective Remarks Patient complains of shortness of breath. Respiratory etiology does not appear present. Nebulized albuterol treatment provided the patient says it persists. He says it feels like anxiety. Objective Vital Signs Date Time Temp Pulse Resp B/P (MAP) Pulse Ox O2 Delivery O2 Flow Rate FiO2 05/19/17 11:15 72 16 143/80 (101) 99 05/19/17 06:28 97.7 72 16 142/81 (101) 97 05/18/17 17:22 98.2 72 17 150/80 (103) 98 I/O 05/18/17 05/18/17 05/18/17 05/19/17 05/19/17 05/19/17 07:00 15:00 23:00 07:00 15:00 23:00 Intake Total 480 ml 960 ml 600 ml Output Total 400 ml Balance 480 ml 560 ml 600 ml Intake Oral 480 ml 960 ml 600 ml Output Urine Total 400 ml # Voids 1 Result Diagram: 05/15/17 1610 05/16/17 0940 Objective Remarks GENERAL: NAD, A&Ox2 HEAD: Normocephalic. NECK: Supple, trachea midline. No lymphadenopathy. EYES: No scleral icterus. No injection or drainage. CARDIOVASCULAR: Regular rate and rhythm without murmurs, gallops, or rubs. RESPIRATORY: Breath sounds equal bilaterally. No accessory muscle use. GASTROINTESTINAL: Abdomen soft, non-tender, nondistended. MUSCULOSKELETAL: No cyanosis, or edema. SKIN: Warm and dry. NEURO: No focal neurological deficitis. A/P Problem List: (1) Altered mental status ICD Code: R41.82 - Altered mental status, unspecified Status: Acute Assessment and Plan Assessment and plan 71-year-old male admitted secondary to altered mental status. When necessary albuterol for shortness of breath. Atarax added for anxiety (benzodiazepines avoided). If needed he may benefit from a long-acting benzodiazepine which would have less potential for abuse. Altered mental status Etiology may be benzodiazepine withdrawal Currently improved Continue to monitor and continue withdrawal protocol Baseline of dementia by history/records Dementia could be contributory Hypertension Continue Lisinopril (adjust if needed) As needed clonidine provided Monitor blood pressures Adjust blood pressure treatments if needed Benign prostatic hypertrophy Continue Flomax Gastroesophageal reflux disease Continue PPI Nicotine dependence Continue daily NicoDerm Hyperlipidemia Monitor as an outpatient Mildly elevated at this point At his age I would attempt dietary changes before considering statin DVT prophylaxis SCDs, which may be discontinued when patient ambulatory Due to seizure risk anticoagulants avoided at this point Problem Qualifiers (1) Altered mental status: Qualified Codes: R41.82 - Altered mental status, unspecified Seth Carroll MD May 19, 2017 17:15
[2017-05-19 17:57] VITALS: BP 137/75; PULSE 67; RESP 18; TEMP 97.8; O2SAT 100
[2017-05-19] MEDS: RESP: ALBUTEROL 2.5 MG/3 ML NEB (PRN) NEB (20:08)
[2017-05-19] MEDS: TAMSULOSIN HCL 0.4 MG CAP PO SCH (20:25)
[2017-05-19] MEDS: hydrOXYzine HCL 25 MG TAB PO PRN (20:41)
[2017-05-19] MEDS: REMOVE OLD NICOTINE PATCH T-DERMAL SCH (21:00)
[2017-05-20 06:45] VITALS: BP 115/59; PULSE 84; RESP 17; TEMP 97.9; O2SAT 98
--- NOTE | 2017-05-20 07:40 | HHI.PR ---
Subjective Remarks in no acute distress. denies pain. no fever. d/w the RN and no acute issues over night. Objective Vitals Vital Signs Date Time Temp Pulse Resp B/P (MAP) Pulse Ox O2 Delivery O2 Flow Rate FiO2 05/20/17 06:45 97.9 84 17 115/59 (77) 98 05/19/17 17:57 97.8 67 18 137/75 (95) 100 05/19/17 11:15 72 16 143/80 (101) 99 I/O 05/19/17 05/19/17 05/19/17 05/20/17 05/20/17 05/20/17 07:00 15:00 23:00 07:00 15:00 23:00 Intake Total 600 ml 0 ml 240 ml Balance 600 ml 0 ml 240 ml Intake Oral 600 ml 0 ml 240 ml # Voids 1 2 2 # Bowel Movements 1 Result Diagram: 05/16/17 0940 Imaging Last Impressions Head CT 05/15/17 1600 Signed Impressions: Service Date/Time: Monday, May 15, 2017 16:44 - CONCLUSION: Motion otherwise negative. Ko Maza MD FACR Chest X-Ray 05/15/17 1600 Signed Impressions: Service Date/Time: Monday, May 15, 2017 16:02 - CONCLUSION: No acute cardiopulmonary process. Christopher Wolf MD Objective Remarks GENERAL: This is a well-nourished, well-developed patient, in no apparent distress. CARDIOVASCULAR: Regular rate and regular rhythm without murmurs, gallops, or rubs. RESPIRATORY: Clear to auscultation. Breath sounds equal bilaterally. No wheezes , rales, or rhonchi. GASTROINTESTINAL: Abdomen soft, non-tender, nondistended. Normal, active bowel sounds MUSCULOSKELETAL: Extremities without clubbing, cyanosis, or edema. NEURO: Alert & Oriented x4 to person, place, time, situation. Moves all ext x4 Medications and IVs Current Medications IV Flush (NS Flush) 2 ml UNSCH PRN IV FLUSH FLUSH AFTER USING IV ACCESS; Start 05/15/17 at 16:00 Sodium Chloride 1,000 ml @ 1,000 mls/hr Q1H IV Last administered on t 16:33; Start 05/15/17 at 16:00; Stop 05/15/17 at 16:59; Status DC Lorazepam (Ativan Inj) 1 mg ONCE ONCE IV PUSH Last administered on 05/15/17 16:44; Start 05/15/17 at 16:30; Stop 05/15/17 at 16:31; Status DC Acetaminophen (Tylenol) 650 mg Q4H PRN PO Pain 1-5 or Temp >101F; Start at 20:30 Magnesium Hydroxide (Milk Of Magnesia Liq) 30 ml DAILY PRN PO CONSTIPATION Last administered on 05/19/17 08:16; Start 05/15/17 at 20:30 Al Hydrox/Mg Hydrox/Simethicone (Mag-Al Plus Susp Liq) 30 ml Q6H PRN PO DYSPEPSIA Last administered on 05/18/17 17:21; Start 05/15/17 at 20:30 Nicotine (Habitrol 21 Mg Patch.24 Hr) 1 patch DAILY T-DERMAL Last administered on 05/19/17 08:16; Start 05/16/17 at 09:00 Miscellaneous Information 1 HS T-DERMAL Last administered on 05/16/17 21:00; Start 05/15/17 at 21:00 Lorazepam (Ativan) 1 mg Q4H PRN PO CIWA 8-10 Last administered on 05/16/17 23 :06; Start 05/15/17 at 23:30 Lorazepam (Ativan Inj) 1 mg Q4H PRN IV PUSH CIWA 8-10; Start 05/15/17 at 23:30 Lorazepam (Ativan) 2 mg Q2H PRN PO CIWA 11-14; Start 05/15/17 at 23:30 Lorazepam (Ativan Inj) 2 mg Q2H PRN IV PUSH CIWA 11-14 Last administered on 15:15; Start 05/15/17 at 23:30 Lorazepam (Ativan Inj) 2 mg Q1H PRN IV PUSH CIWA 15-20 Last administered on 23:41; Start 05/15/17 at 23:30 Lorazepam (Ativan Inj) 2 mg Q15M PRN IV PUSH CIWA > 20; Start 05/15/17 at 23: 30 Flumazenil (Romazicon Inj) 0.2 mg Q1M PRN IV PUSH SEE LABEL COMMENTS; Start at 23:30 Clonidine (Catapres) 0.1 mg Q6H PRN PO SBP>160, DBP>90; Start 05/16/17 at 09: 30 Pregabalin (Lyrica) 150 mg BID PO Last administered on 05/19/17 20:25; Start 05/16/17 at 21:00 Tamsulosin HCl (Flomax) 0.4 mg HS PO Last administered on 05/19/17 20:25; Start 05/16/17 at 21:00 Pantoprazole Sodium (Protonix) 40 mg DAILY PO Last administered on 05/19/17 08:16; Start 05/17/17 at 09:00 Thiamine HCl (Vitamin B1) 250 mg BID PO Last administered on 05/19/17 20:25; Start 05/16/17 at 21:00 Miscellaneous (Pill Splitter) 1 ea UNSCH PRN OTHER SEE LABEL COMMENTS; Start 05/16/17 at 19:00 Quetiapine Fumarate (SEROquel) 50 mg BID PO Last administered on 05/19/17 20: 26; Start 05/17/17 at 14:45 Lisinopril (Prinivil) 10 mg DAILY PO Last administered on 05/19/17 08:54; Start 05/19/17 at 09:00 Albuterol Sulfate (Albuterol Neb) 2.5 mg ONCE ONCE NEB Last administered on 13:27; Start 05/19/17 at 13:15; Stop 05/19/17 at 13:16; Status DC Albuterol Sulfate (Albuterol Neb) 2.5 mg Q6HR NEB PRN NEB Dyspnea Last administered on 05/19/17 20:08; Start 05/19/17 at 13:15 Hydroxyzine HCl (Atarax) 25 mg Q8H PRN PO anxiety Last administered on 17:12; Start 05/19/17 at 16:45; Stop 05/19/17 at 17:17; Status DC Hydroxyzine HCl (Atarax) 10 mg Q8H PRN PO Anxiety; Start 05/19/17 at 17:15; Stop 05/19/17 at 17:20; Status DC Hydroxyzine HCl (Atarax) 25 mg Q8H PRN PO ANXIETY Last administered on t 20:41; Start 05/19/17 at 17:30 A/P Problem List: (1) Psychosis ICD Code: F29 - Unspecified psychosis not due to a substance or known physiological condition Status: Acute (2) Failure to thrive in adult ICD Code: R62.7 - Adult failure to thrive Status: Acute (3) Dementia, unspecified, without behavioral disturbance ICD Code: F03.90 - Dementia without behavioral disturbance Status: Acute (4) Delusional disorder ICD Code: F22 - Delusional disorder Status: Acute (5) Major depressive disorder with psychotic features ICD Code: F32.3 - Major depressive disorder with psychotic features Status: Acute (6) Generalized weakness ICD Code: R53.1 - Weakness Status: Acute (7) Depression ICD Code: F32.9 - Depression Status: Acute (8) History of CVA (cerebrovascular accident) ICD Code: Z86.73 - Personal history of transient ischemic attack (TIA), and cerebral infarction without residual deficits Status: Acute (9) Depressive disorder ICD Code: F32.9 - Depressive disorder Status: Acute (10) Unspecified psychosis ICD Code: F29 - Unspecified psychosis not due to a substance or known physiological condition (11) Altered mental status ICD Code: R41.82 - Altered mental status, unspecified Status: Acute (12) COPD (chronic obstructive pulmonary disease) ICD Code: J44.9 - Chronic obstructive pulmonary disease, unspecified Status: Acute Assessment and Plan A/P Altered mental status Currently improved Continue to monitor and continue withdrawal protocol Baseline of dementia by history/records Dementia could be contributory psych following. Hypertension BP at times mildly elevated. Continue Lisinopril- continue to monitor and adjust if needed. As needed clonidine provided Monitor blood pressures Benign prostatic hypertrophy Continue Flomax Gastroesophageal reflux disease Continue PPI Nicotine dependence Continue daily NicoDerm Hyperlipidemia Monitor as an outpatient Mildly elevated at this point DVT prophylaxis SCDs, which may be discontinued when patient ambulatory Due to seizure risk anticoagulants avoided at this point Problem Qualifiers (1) Psychosis: Qualified Codes: F29 - Unspecified psychosis not due to a substance or known physiological condition (2) Altered mental status: Qualified Codes: R41.82 - Altered mental status, unspecified Karen Solitario MD May 20, 2017 07:40
[2017-05-20] MEDS: PANTOPRAZOLE SOD 40 MG DELAYED RELEASE TAB PO SCH (10:01)
[2017-05-20] MEDS: PREGABALIN 75 MG CAP PO SCH ×2 (10:01→20:59)
[2017-05-20] MEDS: LISINOPRIL 10 MG TAB PO SCH (10:01)
[2017-05-20] MEDS: THIAMINE HCL 100 MG TAB PO SCH ×2 (10:02→21:03)
[2017-05-20] MEDS: QUEtiapine FUMARATE 25 MG TAB PO SCH (10:02)
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
[2017-05-20] MEDS: NICOTINE 21 MG/24 HR PATCH T-DERMAL SCH (10:37)
[2017-05-20] MEDS ORDERED: PILL SPLITTER OTHER PRN (10:45)
[2017-05-20 13:37] VITALS: BP 86/53; PULSE 73; RESP 16; TEMP 97.6; O2SAT 97
--- NOTE | 2017-05-20 13:55 | PD.TTN ---
Patient Problems 1. Discharge planning 2. Medication compliance 3. Knowledge deficit 4. Lack of coping skills Progress Toward Goals Provider Present: Dr. Joel Valentino Provider Input: Per doctor, patient's medication and treatment is being adjusted to counter his depression and confused behavior Nurse(s) Present: Chava Donnelly, RN Nurse(s) Input: Per RN, patient complains of dizziness, his vitals taken and recorded. B/P appears a bit low, but patient is in no physical distress. Encouraged fluids. Patient is eating and taking his medication Psychiatric Counselors Present: LIN Castillo Psych Therapist Input: Counselor located patient's landlord's name and contact information; Mirna) [phone] who confirmed that patient is able to return to his apartment when stable; per Mirna patient would benefit from service Group Spec/RT/OT/MELENDEZ Present: Melvin Reddy OT Group Spec/RT/OT/MELENDEZ Input: Patient has not participated with groups or activities, continues to be encouraged to do so Documentation Scribe: LIN Castillo Sandra LMHC May 20, 2017 13:55
[2017-05-20 18:13] VITALS: BP 95/54; PULSE 64; RESP 18; TEMP 97.4; O2SAT 100
[2017-05-20] MEDS: ALUMINUM/MAGNESIUM/SIMETH 30 ML CUP PO PRN (19:26)
[2017-05-20] MEDS: RESP: ALBUTEROL 2.5 MG/3 ML NEB (PRN) NEB (19:30)
[2017-05-20] MEDS: hydrOXYzine HCL 25 MG TAB PO PRN (20:31)
[2017-05-20] MEDS: TAMSULOSIN HCL 0.4 MG CAP PO SCH (20:59)
[2017-05-20] MEDS: REMOVE OLD NICOTINE PATCH T-DERMAL SCH (21:00)
[2017-05-20] MEDS ORDERED: QUEtiapine FUMARATE 100 MG TAB PO SCH (21:00)
[2017-05-21 05:54] VITALS: BP 104/56; PULSE 70; RESP 17; TEMP 97.8; O2SAT 97
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
--- NOTE | 2017-05-21 08:28 | HHI.PR ---
Subjective Remarks in no acute distress. says that has some sob and dizziness when walking. no chest pain. BP trend noted. d/w the RN. Objective Vitals Vital Signs Date Time Temp Pulse Resp B/P (MAP) Pulse Ox O2 Delivery O2 Flow Rate FiO2 05/21/17 05:54 97.8 70 17 104/56 (72) 97 05/20/17 18:13 97.4 64 18 95/54 (68) 100 05/20/17 13:37 97.6 73 16 86/53 (64) 97 I/O 05/20/17 05/20/17 05/20/17 05/21/17 05/21/17 05/21/17 07:00 15:00 23:00 07:00 15:00 23:00 Intake Total 240 ml 720 ml 480 ml 240 ml Balance 240 ml 720 ml 480 ml 240 ml Intake Oral 240 ml 720 ml 480 ml 240 ml # Voids 2 2 0 3 # Bowel Movements 1 1 Imaging Last Impressions Head CT 05/15/17 1600 Signed Impressions: Service Date/Time: Monday, May 15, 2017 16:44 - CONCLUSION: Motion otherwise negative. Ko Maza MD FACR Chest X-Ray 05/15/17 1600 Signed Impressions: Service Date/Time: Monday, May 15, 2017 16:02 - CONCLUSION: No acute cardiopulmonary process. Christopher Wolf MD Objective Remarks GENERAL: This is a well-nourished, well-developed patient, in no apparent distress. CARDIOVASCULAR: Regular rate and regular rhythm without murmurs, gallops, or rubs. RESPIRATORY: Clear to auscultation. Breath sounds equal bilaterally. No wheezes , rales, or rhonchi. GASTROINTESTINAL: Abdomen soft, non-tender, nondistended. Normal, active bowel sounds MUSCULOSKELETAL: Extremities without clubbing, cyanosis, or edema. NEURO: Alert & Oriented x4 to person, place, time, situation. Moves all ext x4 Medications and IVs Current Medications IV Flush (NS Flush) 2 ml UNSCH PRN IV FLUSH FLUSH AFTER USING IV ACCESS; Start 05/15/17 at 16:00 Sodium Chloride 1,000 ml @ 1,000 mls/hr Q1H IV Last administered on t 16:33; Start 05/15/17 at 16:00; Stop 05/15/17 at 16:59; Status DC Lorazepam (Ativan Inj) 1 mg ONCE ONCE IV PUSH Last administered on 05/15/17 16:44; Start 05/15/17 at 16:30; Stop 05/15/17 at 16:31; Status DC Acetaminophen (Tylenol) 650 mg Q4H PRN PO Pain 1-5 or Temp >101F; Start at 20:30 Magnesium Hydroxide (Milk Of Magnesia Liq) 30 ml DAILY PRN PO CONSTIPATION Last administered on 05/19/17 08:16; Start 05/15/17 at 20:30 Al Hydrox/Mg Hydrox/Simethicone (Mag-Al Plus Susp Liq) 30 ml Q6H PRN PO DYSPEPSIA Last administered on 05/20/17 19:26; Start 05/15/17 at 20:30 Nicotine (Habitrol 21 Mg Patch.24 Hr) 1 patch DAILY T-DERMAL Last administered on 05/20/17 10:37; Start 05/16/17 at 09:00 Miscellaneous Information 1 HS T-DERMAL Last administered on 05/20/17 21:00; Start 05/15/17 at 21:00 Lorazepam (Ativan) 1 mg Q4H PRN PO CIWA 8-10 Last administered on 05/16/17 23 :06; Start 05/15/17 at 23:30 Lorazepam (Ativan Inj) 1 mg Q4H PRN IV PUSH CIWA 8-10; Start 05/15/17 at 23:30 Lorazepam (Ativan) 2 mg Q2H PRN PO CIWA 11-14; Start 05/15/17 at 23:30 Lorazepam (Ativan Inj) 2 mg Q2H PRN IV PUSH CIWA 11-14 Last administered on 15:15; Start 05/15/17 at 23:30 Lorazepam (Ativan Inj) 2 mg Q1H PRN IV PUSH CIWA 15-20 Last administered on 23:41; Start 05/15/17 at 23:30 Lorazepam (Ativan Inj) 2 mg Q15M PRN IV PUSH CIWA > 20; Start 05/15/17 at 23: 30 Flumazenil (Romazicon Inj) 0.2 mg Q1M PRN IV PUSH SEE LABEL COMMENTS; Start at 23:30 Clonidine (Catapres) 0.1 mg Q6H PRN PO SBP>160, DBP>90; Start 05/16/17 at 09: 30 Pregabalin (Lyrica) 150 mg BID PO Last administered on 05/20/17 20:59; Start 05/16/17 at 21:00 Tamsulosin HCl (Flomax) 0.4 mg HS PO Last administered on 05/20/17 20:59; Start 05/16/17 at 21:00 Pantoprazole Sodium (Protonix) 40 mg DAILY PO Last administered on 05/20/17 10:01; Start 05/17/17 at 09:00 Thiamine HCl (Vitamin B1) 250 mg BID PO Last administered on 05/20/17 21:03; Start 05/16/17 at 21:00 Miscellaneous (Pill Splitter) 1 ea UNSCH PRN OTHER SEE LABEL COMMENTS; Start 05/16/17 at 19:00 Quetiapine Fumarate (SEROquel) 50 mg BID PO Last administered on 05/20/17 10: 02; Start 05/17/17 at 14:45; Stop 05/20/17 at 10:18; Status DC Lisinopril (Prinivil) 10 mg DAILY PO Last administered on 05/20/17 10:01; Start 05/19/17 at 09:00 Albuterol Sulfate (Albuterol Neb) 2.5 mg ONCE ONCE NEB Last administered on 13:27; Start 05/19/17 at 13:15; Stop 05/19/17 at 13:16; Status DC Albuterol Sulfate (Albuterol Neb) 2.5 mg Q6HR NEB PRN NEB Dyspnea Last administered on 05/20/17 19:30; Start 05/19/17 at 13:15 Hydroxyzine HCl (Atarax) 25 mg Q8H PRN PO anxiety Last administered on 17:12; Start 05/19/17 at 16:45; Stop 05/19/17 at 17:17; Status DC Hydroxyzine HCl (Atarax) 10 mg Q8H PRN PO Anxiety; Start 05/19/17 at 17:15; Stop 05/19/17 at 17:20; Status DC Hydroxyzine HCl (Atarax) 25 mg Q8H PRN PO ANXIETY Last administered on 20:31; Start 05/19/17 at 17:30 Quetiapine Fumarate (SEROquel) 50 mg DAILY PO ; Start 05/21/17 at 09:00; Stop 05/21/17 at 09:00; Status DC Quetiapine Fumarate (SEROquel) 150 mg HS PO Last administered on 05/20/17 21: 00; Start 05/20/17 at 21:00; Stop 05/21/17 at 07:52; Status DC Miscellaneous (Pill Splitter) 1 ea UNSCH PRN OTHER SEE LABEL COMMENTS; Start 05/20/17 at 10:45 Quetiapine Fumarate (SEROquel) 200 mg HS PO ; Start 05/21/17 at 21:00 Quetiapine Fumarate (SEROquel) 50 mg BID@0900,1600 PO ; Start 05/21/17 at 09:00 A/P Problem List: (1) Psychosis ICD Code: F29 - Unspecified psychosis not due to a substance or known physiological condition Status: Acute (2) Failure to thrive in adult ICD Code: R62.7 - Adult failure to thrive Status: Acute (3) Dementia, unspecified, without behavioral disturbance ICD Code: F03.90 - Dementia without behavioral disturbance Status: Acute (4) Delusional disorder ICD Code: F22 - Delusional disorder Status: Acute (5) Major depressive disorder with psychotic features ICD Code: F32.3 - Major depressive disorder with psychotic features Status: Acute (6) Generalized weakness ICD Code: R53.1 - Weakness Status: Acute (7) Depression ICD Code: F32.9 - Depression Status: Acute (8) History of CVA (cerebrovascular accident) ICD Code: Z86.73 - Personal history of transient ischemic attack (TIA), and cerebral infarction without residual deficits Status: Acute (9) Depressive disorder ICD Code: F32.9 - Depressive disorder Status: Acute (10) Unspecified psychosis ICD Code: F29 - Unspecified psychosis not due to a substance or known physiological condition (11) Altered mental status ICD Code: R41.82 - Altered mental status, unspecified Status: Acute (12) COPD (chronic obstructive pulmonary disease) ICD Code: J44.9 - Chronic obstructive pulmonary disease, unspecified Status: Acute Assessment and Plan A/P Altered mental status Currently improved Continue to monitor and continue withdrawal protocol Baseline of dementia by history/records Dementia could be contributory psych following. Hypertension with transient hypotension hold lisinopril continue to monitor BP and adjust the regimen as needed. Benign prostatic hypertrophy Continue Flomax Gastroesophageal reflux disease Continue PPI Nicotine dependence Continue daily NicoDerm Hyperlipidemia Monitor as an outpatient Mildly elevated at this point DVT prophylaxis SCDs, which may be discontinued when patient ambulatory continue PT. Problem Qualifiers (1) Psychosis: Qualified Codes: F29 - Unspecified psychosis not due to a substance or known physiological condition (2) Altered mental status: Qualified Codes: R41.82 - Altered mental status, unspecified Karen Solitario MD May 21, 2017 08:28
[2017-05-21] MEDS ORDERED: QUEtiapine FUMARATE 25 MG TAB PO SCH (09:00)
[2017-05-21] MEDS: QUEtiapine FUMARATE 25 MG TAB PO SCH ×2 (10:42→16:42)
[2017-05-21] MEDS: PANTOPRAZOLE SOD 40 MG DELAYED RELEASE TAB PO SCH (10:42)
[2017-05-21] MEDS: PREGABALIN 75 MG CAP PO SCH ×2 (10:42→20:57)
[2017-05-21] MEDS: THIAMINE HCL 100 MG TAB PO SCH ×2 (10:43→20:58)
[2017-05-21] MEDS: NICOTINE 21 MG/24 HR PATCH T-DERMAL SCH (10:48)
[2017-05-21 18:00] VITALS: BP 125/65; PULSE 63; RESP 18; TEMP 98; O2SAT 97
[2017-05-21] MEDS: TAMSULOSIN HCL 0.4 MG CAP PO SCH (20:57)
[2017-05-21] MEDS: REMOVE OLD NICOTINE PATCH T-DERMAL SCH (20:58)
[2017-05-21] MEDS: QUEtiapine FUMARATE 200 MG TAB PO SCH (20:58)
[2017-05-22 06:37] VITALS: BP 121/72; PULSE 75; RESP 16; TEMP 97.6; O2SAT 96
--- NOTE | 2017-05-22 08:22 | HHI.PR ---
Subjective Remarks in no acute distress. no dizziness or sob today. BP trend noted. Objective Vitals Vital Signs Date Time Temp Pulse Resp B/P (MAP) Pulse Ox O2 Delivery O2 Flow Rate FiO2 05/22/17 06:37 97.6 75 16 121/72 (88) 96 05/21/17 21:57 20 05/21/17 18:00 98.0 63 18 125/65 (85) 97 I/O 05/21/17 05/21/17 05/21/17 05/22/17 05/22/17 05/22/17 07:00 15:00 23:00 07:00 15:00 23:00 Intake Total 240 ml 360 ml 1440 ml 600 ml Balance 240 ml 360 ml 1440 ml 600 ml Intake Oral 240 ml 360 ml 1200 ml 600 ml Oral Supplement 240 ml # Voids 3 1 3 Imaging Last Impressions Head CT 05/15/17 1600 Signed Impressions: Service Date/Time: Monday, May 15, 2017 16:44 - CONCLUSION: Motion otherwise negative. Ko Maza MD FACR Chest X-Ray 05/15/171599 Signed Impressions: Service Date/Time: Monday, May 15, 2017 16:02 - CONCLUSION: No acute cardiopulmonary process. Christopher Wolf MD Objective Remarks GENERAL: This is a well-nourished, well-developed patient, in no apparent distress. CARDIOVASCULAR: Regular rate and regular rhythm without murmurs, gallops, or rubs. RESPIRATORY: Clear to auscultation. Breath sounds equal bilaterally. No wheezes , rales, or rhonchi. GASTROINTESTINAL: Abdomen soft, non-tender, nondistended. Normal, active bowel sounds MUSCULOSKELETAL: Extremities without clubbing, cyanosis, or edema. NEURO: Alert & Oriented x4 to person, place, time, situation. Moves all ext x4 Medications and IVs Current Medications IV Flush (NS Flush) 2 ml UNSCH PRN IV FLUSH FLUSH AFTER USING IV ACCESS; Start 05/15/17 at 16:00 Sodium Chloride 1,000 ml @ 1,000 mls/hr Q1H IV Last administered on t 16:33; Start 05/15/17 at 16:00; Stop 05/15/17 at 16:59; Status DC Lorazepam (Ativan Inj) 1 mg ONCE ONCE IV PUSH Last administered on 05/15/17 16:44; Start 05/15/17 at 16:30; Stop 05/15/17 at 16:31; Status DC Acetaminophen (Tylenol) 650 mg Q4H PRN PO Pain 1-5 or Temp >101F; Start at 20:30 Magnesium Hydroxide (Milk Of Magnesia Liq) 30 ml DAILY PRN PO CONSTIPATION Last administered on 05/19/17 08:16; Start 05/15/17 at 20:30 Al Hydrox/Mg Hydrox/Simethicone (Mag-Al Plus Susp Liq) 30 ml Q6H PRN PO DYSPEPSIA Last administered on 05/20/17 19:26; Start 05/15/17 at 20:30 Nicotine (Habitrol 21 Mg Patch.24 Hr) 1 patch DAILY T-DERMAL Last administered on 05/21/17 10:48; Start 05/16/17 at 09:00 Miscellaneous Information 1 HS T-DERMAL Last administered on 05/21/17 20:58; Start 05/15/17 at 21:00 Lorazepam (Ativan) 1 mg Q4H PRN PO CIWA 8-10 Last administered on 05/16/17 23 :06; Start 05/15/17 at 23:30 Lorazepam (Ativan Inj) 1 mg Q4H PRN IV PUSH CIWA 8-10; Start 05/15/17 at 23:30 Lorazepam (Ativan) 2 mg Q2H PRN PO CIWA 11-14; Start 05/15/17 at 23:30 Lorazepam (Ativan Inj) 2 mg Q2H PRN IV PUSH CIWA 11-14 Last administered on 15:15; Start 05/15/17 at 23:30 Lorazepam (Ativan Inj) 2 mg Q1H PRN IV PUSH CIWA 15-20 Last administered on 23:41; Start 05/15/17 at 23:30 Lorazepam (Ativan Inj) 2 mg Q15M PRN IV PUSH CIWA > 20; Start 05/15/17 at 23: 30 Flumazenil (Romazicon Inj) 0.2 mg Q1M PRN IV PUSH SEE LABEL COMMENTS; Start at 23:30 Clonidine (Catapres) 0.1 mg Q6H PRN PO SBP>160, DBP>90; Start 05/16/17 at 09: 30 Pregabalin (Lyrica) 150 mg BID PO Last administered on 05/21/17 20:57; Start 05/16/17 at 21:00 Tamsulosin HCl (Flomax) 0.4 mg HS PO Last administered on 05/21/17 20:57; Start 05/16/17 at 21:00 Pantoprazole Sodium (Protonix) 40 mg DAILY PO Last administered on 05/21/17 10:42; Start 05/17/17 at 09:00 Thiamine HCl (Vitamin B1) 250 mg BID PO Last administered on 05/21/17 20:58; Start 05/16/17 at 21:00 Miscellaneous (Pill Splitter) 1 ea UNSCH PRN OTHER SEE LABEL COMMENTS; Start 05/16/17 at 19:00 Quetiapine Fumarate (SEROquel) 50 mg BID PO Last administered on 05/20/17 10: 02; Start 05/17/17 at 14:45; Stop 05/20/17 at 10:18; Status DC Lisinopril (Prinivil) 10 mg DAILY PO Last administered on 05/20/17 10:01; Start 05/19/17 at 09:00; Status Future Hold Albuterol Sulfate (Albuterol Neb) 2.5 mg ONCE ONCE NEB Last administered on 13:27; Start 05/19/17 at 13:15; Stop 05/19/17 at 13:16; Status DC Albuterol Sulfate (Albuterol Neb) 2.5 mg Q6HR NEB PRN NEB Dyspnea Last administered on 05/20/17 19:30; Start 05/19/17 at 13:15 Hydroxyzine HCl (Atarax) 25 mg Q8H PRN PO anxiety Last administered on 17:12; Start 05/19/17 at 16:45; Stop 05/19/17 at 17:17; Status DC Hydroxyzine HCl (Atarax) 10 mg Q8H PRN PO Anxiety; Start 05/19/17 at 17:15; Stop 05/19/17 at 17:20; Status DC Hydroxyzine HCl (Atarax) 25 mg Q8H PRN PO ANXIETY Last administered on 20:31; Start 05/19/17 at 17:30 Quetiapine Fumarate (SEROquel) 50 mg DAILY PO ; Start 05/21/17 at 09:00; Stop 05/21/17 at 09:00; Status DC Quetiapine Fumarate (SEROquel) 150 mg HS PO Last administered on 05/20/17 21: 00; Start 05/20/17 at 21:00; Stop 05/21/17 at 07:52; Status DC Miscellaneous (Pill Splitter) 1 ea UNSCH PRN OTHER SEE LABEL COMMENTS; Start 05/20/17 at 10:45 Quetiapine Fumarate (SEROquel) 200 mg HS PO Last administered on 05/21/17 20: 58; Start 05/21/17 at 21:00 Quetiapine Fumarate (SEROquel) 50 mg BID@0900,1600 PO Last administered on 16:42; Start 05/21/17 at 09:00 A/P Problem List: (1) Psychosis ICD Code: F29 - Unspecified psychosis not due to a substance or known physiological condition Status: Acute (2) Failure to thrive in adult ICD Code: R62.7 - Adult failure to thrive Status: Acute (3) Dementia, unspecified, without behavioral disturbance ICD Code: F03.90 - Dementia without behavioral disturbance Status: Acute (4) Delusional disorder ICD Code: F22 - Delusional disorder Status: Acute (5) Major depressive disorder with psychotic features ICD Code: F32.3 - Major depressive disorder with psychotic features Status: Acute (6) Generalized weakness ICD Code: R53.1 - Weakness Status: Acute (7) Depression ICD Code: F32.9 - Depression Status: Acute (8) History of CVA (cerebrovascular accident) ICD Code: Z86.73 - Personal history of transient ischemic attack (TIA), and cerebral infarction without residual deficits Status: Acute (9) Depressive disorder ICD Code: F32.9 - Depressive disorder Status: Acute (10) Unspecified psychosis ICD Code: F29 - Unspecified psychosis not due to a substance or known physiological condition (11) Altered mental status ICD Code: R41.82 - Altered mental status, unspecified Status: Acute (12) COPD (chronic obstructive pulmonary disease) ICD Code: J44.9 - Chronic obstructive pulmonary disease, unspecified Status: Acute Assessment and Plan A/P Altered mental status improved Continue to monitor and continue withdrawal protocol Baseline of dementia by history/records Dementia could be contributory psych following. Hypertension with transient hypotension BP better today. continue to hold lisinopril continue to monitor BP and adjust the regimen as needed. Benign prostatic hypertrophy Continue Flomax Gastroesophageal reflux disease Continue PPI Nicotine dependence Continue daily NicoDerm Hyperlipidemia Monitor as an outpatient Mildly elevated at this point DVT prophylaxis SCDs, which may be discontinued when patient ambulatory continue PT. Problem Qualifiers (1) Psychosis: Qualified Codes: F29 - Unspecified psychosis not due to a substance or known physiological condition (2) Altered mental status: Qualified Codes: R41.82 - Altered mental status, unspecified Karen Solitario MD May 22, 2017 08:22
[2017-05-22] MEDS: PANTOPRAZOLE SOD 40 MG DELAYED RELEASE TAB PO SCH (08:56)
[2017-05-22] MEDS: THIAMINE HCL 100 MG TAB PO SCH ×2 (08:56→21:59)
[2017-05-22] MEDS: PREGABALIN 75 MG CAP PO SCH ×2 (08:57→21:59)
[2017-05-22] MEDS: QUEtiapine FUMARATE 25 MG TAB PO SCH ×2 (08:59→15:38)
[2017-05-22] MEDS: NICOTINE 21 MG/24 HR PATCH T-DERMAL SCH (09:04)
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
[2017-05-22 18:00] VITALS: BP 139/70; PULSE 63; RESP 18; TEMP 97.5; O2SAT 99
[2017-05-22] MEDS: REMOVE OLD NICOTINE PATCH T-DERMAL SCH (21:00)
[2017-05-22] MEDS: QUEtiapine FUMARATE 200 MG TAB PO SCH (21:59)
[2017-05-22] MEDS: TAMSULOSIN HCL 0.4 MG CAP PO SCH (21:59)
[2017-05-22] MEDS: hydrOXYzine HCL 25 MG TAB PO PRN (22:00)
[2017-05-22] MEDS: diphenhydrAMINE HCL 50 MG CAP PO PRN (22:02)
[2017-05-23 05:28] VITALS: BP 130/70; PULSE 60; RESP 17; TEMP 97.7; O2SAT 97
[2017-05-23] MEDS: QUEtiapine FUMARATE 25 MG TAB PO SCH ×2 (08:21→15:38)
[2017-05-23] MEDS: PANTOPRAZOLE SOD 40 MG DELAYED RELEASE TAB PO SCH (08:21)
[2017-05-23] MEDS: PREGABALIN 75 MG CAP PO SCH ×2 (08:21→20:49)
[2017-05-23] MEDS: THIAMINE HCL 100 MG TAB PO SCH ×2 (08:21→20:50)
[2017-05-23] MEDS: NICOTINE 21 MG/24 HR PATCH T-DERMAL SCH (08:21)
--- NOTE | 2017-05-23 08:29 | HHI.PR ---
Subjective Remarks in no acute distress. looks more comfortable today. no sob or dizziness. Objective Vitals Vital Signs Date Time Temp Pulse Resp B/P (MAP) Pulse Ox O2 Delivery O2 Flow Rate FiO2 05/23/17 05:28 97.7 60 17 130/70 (90) 97 05/22/17 18:00 97.5 63 18 139/70 (93) 99 I/O 05/22/17 05/22/17 05/22/17 05/23/17 05/23/17 05/23/17 07:00 15:00 23:00 07:00 15:00 23:00 Intake Total 600 ml 480 ml 960 ml 120 ml Balance 600 ml 480 ml 960 ml 120 ml Intake Oral 600 ml 480 ml 960 ml 120 ml # Voids 3 3 Imaging Last Impressions Head CT 05/15/17 1600 Signed Impressions: Service Date/Time: Monday, May 15, 2017 16:44 - CONCLUSION: Motion otherwise negative. Ko Maza MD FACR Chest X-Ray 05/15/17 1600 Signed Impressions: Service Date/Time: Monday, May 15, 2017 16:02 - CONCLUSION: No acute cardiopulmonary process. Christopher Wolf MD Objective Remarks GENERAL: This is a well-nourished, well-developed patient, in no apparent distress. CARDIOVASCULAR: Regular rate and regular rhythm without murmurs, gallops, or rubs. RESPIRATORY: Clear to auscultation. Breath sounds equal bilaterally. No wheezes , rales, or rhonchi. GASTROINTESTINAL: Abdomen soft, non-tender, nondistended. Normal, active bowel sounds MUSCULOSKELETAL: Extremities without clubbing, cyanosis, or edema. NEURO: Alert & Oriented x4 to person, place, time, situation. Moves all ext x4 Medications and IVs Current Medications IV Flush (NS Flush) 2 ml UNSCH PRN IV FLUSH FLUSH AFTER USING IV ACCESS; Start 05/15/17 at 16:00 Sodium Chloride 1,000 ml @ 1,000 mls/hr Q1H IV Last administered on 16:33; Start 05/15/17 at 16:00; Stop 05/15/17 at 16:59; Status DC Lorazepam (Ativan Inj) 1 mg ONCE ONCE IV PUSH Last administered on 05/15/17 16:44; Start 05/15/17 at 16:30; Stop 05/15/17 at 16:31; Status DC Acetaminophen (Tylenol) 650 mg Q4H PRN PO Pain 1-5 or Temp >101F; Start at 20:30 Magnesium Hydroxide (Milk Of Magnesia Liq) 30 ml DAILY PRN PO CONSTIPATION Last administered on 05/19/17 08:16; Start 05/15/17 at 20:30 Al Hydrox/Mg Hydrox/Simethicone (Mag-Al Plus Susp Liq) 30 ml Q6H PRN PO DYSPEPSIA Last administered on 05/20/17 19:26; Start 05/15/17 at 20:30 Nicotine (Habitrol 21 Mg Patch.24 Hr) 1 patch DAILY T-DERMAL Last administered on 05/23/17 08:21; Start 05/16/17 at 09:00 Miscellaneous Information 1 HS T-DERMAL Last administered on 05/22/17 21:00; Start 05/15/17 at 21:00 Lorazepam (Ativan) 1 mg Q4H PRN PO CIWA 8-10 Last administered on 05/16/17 23 :06; Start 05/15/17 at 23:30; Stop 05/22/17 at 11:23; Status DC Lorazepam (Ativan Inj) 1 mg Q4H PRN IV PUSH CIWA 8-10; Start 05/15/17 at 23:30 ; Stop 05/22/17 at 11:23; Status DC Lorazepam (Ativan) 2 mg Q2H PRN PO CIWA 11-14; Start 05/15/17 at 23:30; Stop 05/22/17 at 11:23; Status DC Lorazepam (Ativan Inj) 2 mg Q2H PRN IV PUSH CIWA 11-14 Last administered on 15:15; Start 05/15/17 at 23:30; Stop 05/22/17 at 11:23; Status DC Lorazepam (Ativan Inj) 2 mg Q1H PRN IV PUSH CIWA 15-20 Last administered on 23:41; Start 05/15/17 at 23:30; Stop 05/22/17 at 11:23; Status DC Lorazepam (Ativan Inj) 2 mg Q15M PRN IV PUSH CIWA > 20; Start 05/15/17 at 23: 30; Stop 05/22/17 at 11:23; Status DC Flumazenil (Romazicon Inj) 0.2 mg Q1M PRN IV PUSH SEE LABEL COMMENTS; Start at 23:30 Clonidine (Catapres) 0.1 mg Q6H PRN PO SBP>160, DBP>90; Start 05/16/17 at 09: 30 Pregabalin (Lyrica) 150 mg BID PO Last administered on 05/23/17 08:21; Start 05/16/17 at 21:00 Tamsulosin HCl (Flomax) 0.4 mg HS PO Last administered on 05/22/17 21:59; Start 05/16/17 at 21:00 Pantoprazole Sodium (Protonix) 40 mg DAILY PO Last administered on 05/23/17 08:21; Start 05/17/17 at 09:00 Thiamine HCl (Vitamin B1) 250 mg BID PO Last administered on 05/23/17 08:21; Start 05/16/17 at 21:00 Miscellaneous (Pill Splitter) 1 ea UNSCH PRN OTHER SEE LABEL COMMENTS; Start 05/16/17 at 19:00 Quetiapine Fumarate (SEROquel) 50 mg BID PO Last administered on 05/20/17 10: 02; Start 05/17/17 at 14:45; Stop 05/20/17 at 10:18; Status DC Lisinopril (Prinivil) 10 mg DAILY PO Last administered on 05/20/17 10:01; Start 05/19/17 at 09:00; Status Future Hold Albuterol Sulfate (Albuterol Neb) 2.5 mg ONCE ONCE NEB Last administered on 13:27; Start 05/19/17 at 13:15; Stop 05/19/17 at 13:16; Status DC Albuterol Sulfate (Albuterol Neb) 2.5 mg Q6HR NEB PRN NEB Dyspnea Last administered on 05/20/17 19:30; Start 05/19/17 at 13:15 Hydroxyzine HCl (Atarax) 25 mg Q8H PRN PO anxiety Last administered on 17:12; Start 05/19/17 at 16:45; Stop 05/19/17 at 17:17; Status DC Hydroxyzine HCl (Atarax) 10 mg Q8H PRN PO Anxiety; Start 05/19/17 at 17:15; Stop 05/19/17 at 17:20; Status DC Hydroxyzine HCl (Atarax) 25 mg Q8H PRN PO ANXIETY Last administered on 22:00; Start 05/19/17 at 17:30 Quetiapine Fumarate (SEROquel) 50 mg DAILY PO ; Start 05/21/17 at 09:00; Stop 05/21/17 at 09:00; Status DC Quetiapine Fumarate (SEROquel) 150 mg HS PO Last administered on 05/20/17 21: 00; Start 05/20/17 at 21:00; Stop 05/21/17 at 07:52; Status DC Miscellaneous (Pill Splitter) 1 ea UNSCH PRN OTHER SEE LABEL COMMENTS; Start 05/20/17 at 10:45 Quetiapine Fumarate (SEROquel) 200 mg HS PO Last administered on 05/22/17 21: 59; Start 05/21/17 at 21:00 Quetiapine Fumarate (SEROquel) 50 mg BID@0900,1600 PO Last administered on 08:21; Start 05/21/17 at 09:00 Diphenhydramine HCl (Benadryl) 50 mg HS PRN PO INSOMNIA Last administered on 22:02; Start 05/22/17 at 21:00 A/P Problem List: (1) Psychosis ICD Code: F29 - Unspecified psychosis not due to a substance or known physiological condition Status: Acute (2) Failure to thrive in adult ICD Code: R62.7 - Adult failure to thrive Status: Acute (3) Dementia, unspecified, without behavioral disturbance ICD Code: F03.90 - Dementia without behavioral disturbance Status: Acute (4) Delusional disorder ICD Code: F22 - Delusional disorder Status: Acute (5) Major depressive disorder with psychotic features ICD Code: F32.3 - Major depressive disorder with psychotic features Status: Acute (6) Generalized weakness ICD Code: R53.1 - Weakness Status: Acute (7) Depression ICD Code: F32.9 - Depression Status: Acute (8) History of CVA (cerebrovascular accident) ICD Code: Z86.73 - Personal history of transient ischemic attack (TIA), and cerebral infarction without residual deficits Status: Acute (9) Depressive disorder ICD Code: F32.9 - Depressive disorder Status: Acute (10) Unspecified psychosis ICD Code: F29 - Unspecified psychosis not due to a substance or known physiological condition (11) Altered mental status ICD Code: R41.82 - Altered mental status, unspecified Status: Acute (12) COPD (chronic obstructive pulmonary disease) ICD Code: J44.9 - Chronic obstructive pulmonary disease, unspecified Status: Acute Assessment and Plan A/P Altered mental status improved Continue to monitor and continue withdrawal protocol Baseline of dementia by history/records Dementia could be contributory psych following. Hypertension with transient hypotension BP is trending up. continue to hold lisinopril for today. continue to monitor BP and adjust the regimen as needed. will consider resuming low-dose lisinopril if BP continues to increase. Benign prostatic hypertrophy Continue Flomax Gastroesophageal reflux disease Continue PPI Nicotine dependence Continue daily NicoDerm Hyperlipidemia Monitor as an outpatient Mildly elevated at this point DVT prophylaxis SCDs, which may be discontinued when patient ambulatory continue PT. Problem Qualifiers (1) Psychosis: Qualified Codes: F29 - Unspecified psychosis not due to a substance or known physiological condition (2) Altered mental status: Qualified Codes: R41.82 - Altered mental status, unspecified Karen Solitario MD May 23, 2017 08:29
[2017-05-23] MEDS: hydrOXYzine HCL 25 MG TAB PO PRN ×2 (15:42→20:49)
--- NOTE | 2017-05-23 15:53 | HHI.PYPN ---
Subjective Remarks Patient seen follow, chart reviewed. Discussion she staff reported the patient has a compliant although noted to be confused at times. Patient found sitting in hospital at breakfast states his mood has been "good"", reports sleeping better after the initiation of medication last evening. Patient denies any perceptual disturbances, noted to be slightly more engaged in interview and less confused today. Patient reports his mood is getting better. Patient agreeable to referral to rehabilitation program as patient has become deconditioned since admission. Patient at this time denies any suicidal or homicidal ideations. Patient does not have any concrete plan postdischarge at this time uncertain whether patient is physically capable of managing be discharged home at this time. Review of Systems Except as stated in HPI: all other systems reviewed are Neg Mental Status Examination Appearance: Appropriate Consciousness: Alert Orientation: x4 Motor Activity: Abnormal gait Speech: Slow Language: Adequate Fund of Knowledge: Inadequate Attention and Concentration: Adequate Memory: Impaired (events surrounding his recent admission) Mood: Other ("I'm there") Affect: Blunt Thought Process & Associations: Linear (mostly but confused at times) Thought Content: Preoccupations (preoccupied with acquiring his glasses) Hallucination Type: None Delusion Type: None Suicidal Ideation: No Suicidal Plan: No Suicidal Intention: No Homicidal Ideation: No Homicidal Plan: No Homicidal Intention: No Insight: Poor (improving) Judgment: Impulsive Results Vitals/IOs Vital Signs Date Time Temp Pulse Resp B/P (MAP) Pulse Ox O2 Delivery O2 Flow Rate FiO2 05/23/17 05:28 97.7 60 17 130/70 (90) 97 Intake and Output 05/23/17 05/23/17 05/24/17 08:00 16:00 00:00 Intake Total 240 ml 200 ml Balance 240 ml 200 ml Assessment & Plan Problem List: (1) Unspecified psychosis ICD Codes: F29 - Unspecified psychosis not due to a substance or known physiological condition Assessment & Plan Patient at this time noted to be less confused, noted to be more physically active in the sitting up on bed and attempting to be more mobile but continue to be noted to be weak and requiring further physical therapy and rehabilitation. Patient denies any SI or HI, denies any perceptual disturbances. Continue current treatment for now discharge planning in progress Justification for Cont. Inpt. At risk for decompensation if at lower level of care Discharge Planning Patient to be discharged to health and rehabilitation once one is acquired Ramakrishna Valentino MD May 23, 2017 15:53
[2017-05-23 17:43] VITALS: BP 119/68; PULSE 67; RESP 18; TEMP 97.4; O2SAT 91
[2017-05-23] MEDS: diphenhydrAMINE HCL 50 MG CAP PO PRN (20:49)
[2017-05-23] MEDS: TAMSULOSIN HCL 0.4 MG CAP PO SCH (20:49)
[2017-05-23] MEDS: QUEtiapine FUMARATE 200 MG TAB PO SCH (20:49)
[2017-05-23] MEDS: REMOVE OLD NICOTINE PATCH T-DERMAL SCH (20:52)
[2017-05-24 06:16] VITALS: BP 125/68; PULSE 67; RESP 16; TEMP 98.1; O2SAT 97
[2017-05-24] MEDS: PANTOPRAZOLE SOD 40 MG DELAYED RELEASE TAB PO SCH (08:04)
[2017-05-24] MEDS: PREGABALIN 75 MG CAP PO SCH (08:04)
[2017-05-24] MEDS: THIAMINE HCL 100 MG TAB PO SCH (08:04)
[2017-05-24] MEDS: hydrOXYzine HCL 25 MG TAB PO PRN (08:04)
[2017-05-24] MEDS: NICOTINE 21 MG/24 HR PATCH T-DERMAL SCH (08:05)
--- NOTE | 2017-05-24 08:59 | HHI.PR ---
Subjective Remarks in no acute distress. at times anxious. no new complaints. seen with the PT at the bedside. Objective Vitals Vital Signs Date Time Temp Pulse Resp B/P (MAP) Pulse Ox O2 Delivery O2 Flow Rate FiO2 05/24/17 06:16 98.1 67 16 125/68 (87) 97 05/23/17 17:43 97.4 67 18 119/68 (85) 91 I/O 05/23/17 05/23/17 05/23/17 05/24/17 05/24/17 05/24/17 07:00 15:00 23:00 07:00 15:00 23:00 Intake Total 360 ml 440 ml 880 ml 480 ml Output Total 4 ml 300 ml Balance 360 ml 440 ml 876 ml -300 ml 480 ml Intake Oral 360 ml 440 ml 880 ml 480 ml Output Urine Total 4 ml 300 ml # Voids 3 Imaging Last Impressions Head CT 05/15/17 1600 Signed Impressions: Service Date/Time: Monday, May 15, 2017 16:44 - CONCLUSION: Motion otherwise negative. Ko Maza MD FACR Chest X-Ray 05/15/17 1600 Signed Impressions: Service Date/Time: Monday, May 15, 2017 16:02 - CONCLUSION: No acute cardiopulmonary process. Christopher Wolf MD Objective Remarks GENERAL: This is a well-nourished, well-developed patient, in no apparent distress. CARDIOVASCULAR: Regular rate and regular rhythm without murmurs, gallops, or rubs. RESPIRATORY: Clear to auscultation. Breath sounds equal bilaterally. No wheezes , rales, or rhonchi. GASTROINTESTINAL: Abdomen soft, non-tender, nondistended. Normal, active bowel sounds MUSCULOSKELETAL: Extremities without clubbing, cyanosis, or edema. NEURO: Alert & Oriented x4 to person, place, time, situation. Moves all ext x4 Medications and IVs Current Medications IV Flush (NS Flush) 2 ml UNSCH PRN IV FLUSH FLUSH AFTER USING IV ACCESS; Start 05/15/17 at 16:00 Sodium Chloride 1,000 ml @ 1,000 mls/hr Q1H IV Last administered on t 16:33; Start 05/15/17 at 16:00; Stop 05/15/17 at 16:59; Status DC Lorazepam (Ativan Inj) 1 mg ONCE ONCE IV PUSH Last administered on 05/15/17 16:44; Start 05/15/17 at 16:30; Stop 05/15/17 at 16:31; Status DC Acetaminophen (Tylenol) 650 mg Q4H PRN PO Pain 1-5 or Temp >101F; Start at 20:30 Magnesium Hydroxide (Milk Of Magnesia Liq) 30 ml DAILY PRN PO CONSTIPATION Last administered on 05/19/17 08:16; Start 05/15/17 at 20:30 Al Hydrox/Mg Hydrox/Simethicone (Mag-Al Plus Susp Liq) 30 ml Q6H PRN PO DYSPEPSIA Last administered on 05/20/17 19:26; Start 05/15/17 at 20:30 Nicotine (Habitrol 21 Mg Patch.24 Hr) 1 patch DAILY T-DERMAL Last administered on 05/24/17 08:05; Start 05/16/17 at 09:00 Miscellaneous Information 1 HS T-DERMAL Last administered on 05/23/17 20:52; Start 05/15/17 at 21:00 Lorazepam (Ativan) 1 mg Q4H PRN PO CIWA 8-10 Last administered on 05/16/17 23 :06; Start 05/15/17 at 23:30; Stop 05/22/17 at 11:23; Status DC Lorazepam (Ativan Inj) 1 mg Q4H PRN IV PUSH CIWA 8-10; Start 05/15/17 at 23:30 ; Stop 05/22/17 at 11:23; Status DC Lorazepam (Ativan) 2 mg Q2H PRN PO CIWA 11-14; Start 05/15/17 at 23:30; Stop 05/22/17 at 11:23; Status DC Lorazepam (Ativan Inj) 2 mg Q2H PRN IV PUSH CIWA 11-14 Last administered on 15:15; Start 05/15/17 at 23:30; Stop 05/22/17 at 11:23; Status DC Lorazepam (Ativan Inj) 2 mg Q1H PRN IV PUSH CIWA 15-20 Last administered on 23:41; Start 05/15/17 at 23:30; Stop 05/22/17 at 11:23; Status DC Lorazepam (Ativan Inj) 2 mg Q15M PRN IV PUSH CIWA > 20; Start 05/15/17 at 23: 30; Stop 05/22/17 at 11:23; Status DC Flumazenil (Romazicon Inj) 0.2 mg Q1M PRN IV PUSH SEE LABEL COMMENTS; Start at 23:30 Clonidine (Catapres) 0.1 mg Q6H PRN PO SBP>160, DBP>90; Start 05/16/17 at 09: 30 Pregabalin (Lyrica) 150 mg BID PO Last administered on 05/24/17 08:04; Start 05/16/17 at 21:00 Tamsulosin HCl (Flomax) 0.4 mg HS PO Last administered on 05/23/17 20:49; Start 05/16/17 at 21:00 Pantoprazole Sodium (Protonix) 40 mg DAILY PO Last administered on 05/24/17 08:04; Start 05/17/17 at 09:00 Thiamine HCl (Vitamin B1) 250 mg BID PO Last administered on 05/24/17 08:04; Start 05/16/17 at 21:00 Miscellaneous (Pill Splitter) 1 ea UNSCH PRN OTHER SEE LABEL COMMENTS; Start 05/16/17 at 19:00 Quetiapine Fumarate (SEROquel) 50 mg BID PO Last administered on 05/20/17 10: 02; Start 05/17/17 at 14:45; Stop 05/20/17 at 10:18; Status DC Lisinopril (Prinivil) 10 mg DAILY PO Last administered on 05/20/17 10:01; Start 05/19/17 at 09:00; Status Future Hold Albuterol Sulfate (Albuterol Neb) 2.5 mg ONCE ONCE NEB Last administered on 13:27; Start 05/19/17 at 13:15; Stop 05/19/17 at 13:16; Status DC Albuterol Sulfate (Albuterol Neb) 2.5 mg Q6HR NEB PRN NEB Dyspnea Last administered on 05/20/17 19:30; Start 05/19/17 at 13:15 Hydroxyzine HCl (Atarax) 25 mg Q8H PRN PO anxiety Last administered on 17:12; Start 05/19/17 at 16:45; Stop 05/19/17 at 17:17; Status DC Hydroxyzine HCl (Atarax) 10 mg Q8H PRN PO Anxiety; Start 05/19/17 at 17:15; Stop 05/19/17 at 17:20; Status DC Hydroxyzine HCl (Atarax) 25 mg Q8H PRN PO ANXIETY Last administered on 08:04; Start 05/19/17 at 17:30 Quetiapine Fumarate (SEROquel) 50 mg DAILY PO ; Start 05/21/17 at 09:00; Stop 05/21/17 at 09:00; Status DC Quetiapine Fumarate (SEROquel) 150 mg HS PO Last administered on 05/20/17 21: 00; Start 05/20/17 at 21:00; Stop 05/21/17 at 07:52; Status DC Miscellaneous (Pill Splitter) 1 ea UNSCH PRN OTHER SEE LABEL COMMENTS; Start 05/20/17 at 10:45 Quetiapine Fumarate (SEROquel) 200 mg HS PO Last administered on 05/23/17 20: 49; Start 05/21/17 at 21:00 Quetiapine Fumarate (SEROquel) 50 mg BID@0900,1600 PO Last administered on 15:38; Start 05/21/17 at 09:00 Diphenhydramine HCl (Benadryl) 50 mg HS PRN PO INSOMNIA Last administered on 20:49; Start 05/22/17 at 21:00 A/P Problem List: (1) Psychosis ICD Code: F29 - Unspecified psychosis not due to a substance or known physiological condition Status: Acute (2) Failure to thrive in adult ICD Code: R62.7 - Adult failure to thrive Status: Acute (3) Dementia, unspecified, without behavioral disturbance ICD Code: F03.90 - Dementia without behavioral disturbance Status: Acute (4) Delusional disorder ICD Code: F22 - Delusional disorder Status: Acute (5) Major depressive disorder with psychotic features ICD Code: F32.3 - Major depressive disorder with psychotic features Status: Acute (6) Generalized weakness ICD Code: R53.1 - Weakness Status: Acute (7) Depression ICD Code: F32.9 - Depression Status: Acute (8) History of CVA (cerebrovascular accident) ICD Code: Z86.73 - Personal history of transient ischemic attack (TIA), and cerebral infarction without residual deficits Status: Acute (9) Depressive disorder ICD Code: F32.9 - Depressive disorder Status: Acute (10) Unspecified psychosis ICD Code: F29 - Unspecified psychosis not due to a substance or known physiological condition (11) Altered mental status ICD Code: R41.82 - Altered mental status, unspecified Status: Acute (12) COPD (chronic obstructive pulmonary disease) ICD Code: J44.9 - Chronic obstructive pulmonary disease, unspecified Status: Acute Assessment and Plan A/P Altered mental status improved Continue to monitor and continue withdrawal protocol Baseline of dementia by history/records Dementia could be contributory psych following. Hypertension with transient hypotension BP controlled and stable. continue to hold lisinopril. continue to monitor BP and adjust the regimen as needed. Benign prostatic hypertrophy Continue Flomax Gastroesophageal reflux disease Continue PPI Nicotine dependence Continue daily NicoDerm Hyperlipidemia Monitor as an outpatient Mildly elevated at this point DVT prophylaxis SCDs, which may be discontinued when patient ambulatory continue PT. Problem Qualifiers (1) Psychosis: Qualified Codes: F29 - Unspecified psychosis not due to a substance or known physiological condition (2) Altered mental status: Qualified Codes: R41.82 - Altered mental status, unspecified Karen Solitario MD May 24, 2017 08:59
[2017-05-24] MEDS: QUEtiapine FUMARATE 25 MG TAB PO SCH (09:01)
[2017-05-24] MEDS ORDERED: QUET5TAB PO (10:22)
[2017-05-24] MEDS ORDERED: QUET1TAB9 PO (10:22)
[2017-05-24] MEDS ORDERED: PANT40TA3 PO (10:22)
[2017-05-24] MEDS ORDERED: LYRI150C PO (10:22)
[2017-05-24] MEDS ORDERED: THIA250T PO (10:22)
[2017-05-24] MEDS ORDERED: TAMS5CAP PO (10:22)
--- NOTE | 2017-05-24 10:45 | HHI.DS ---
Psychiatry Discharge Summary Inpatient Psychiatric care?: Yes Advance Directive: No Reason Not Provided: Due to Patient Condition Mental Health AdvanceDirective: No Health Care Proxy: No Admission Admission Date May 15, 2017 at 18:15 Admission Diagnosis: (1) Unspecified psychosis ICD Code: F29 - Unspecified psychosis not due to a substance or known physiological condition Brief History Patient is 71-year-old man, lives alone at [facility], [facility], the past psychiatric history of depression, anxiety, unspecified psychosis, previous psychiatric hospitalizations, no previous suicide attempt as per chart or self-injurious behavior, remote history of alcohol use disorder, was brought in by EMS activated by his sister after she was concerned for his well-being and [facility] will check call. Patient was placed under [place] act due to concern of his ability to take care of himself as he was noted to have altered mental status, talking to people who were not there and making nonsensical statements. While in the ED patient had a head CT which was negative, chest x-ray which is negative and transferred to the inpatient psychiatry unit for further evaluation and management. Patient was found lying in hospital bed, cooperative interview today. But noted to be very disoriented alert and oriented only to person. Was difficult for patient to engage in interview as she was noted to be disorganized at times making nonsensical statements and was not able to elaborate on answers. Patient was able to answer only concrete questions or answering yes or no but noted to have any spontaneous speech. Patient states that he does not remember events surrounding his admission states the last he remembers was "getting hurt". Patient states that he does take several medications which she can't remember at this time but did admit to taking Xanax 3 mg tablet 3 times a day. Patient recalls having fallen at home when asked about his abrasions and his face in his hands. Patient noted to be slightly lethargic during interview it difficult time staying awake from interview. Due to patient's confusion patient unable to continue meaningful and engaging in interview. Today for psychiatric evaluation for second opinion patient is found calm, cooperative, in a good spirit, but pleasantly demented. He reports good mood, he says that he feels much better. He denies suicidal and homicidal ideation, he denies visual and auditory hallucinations. Tobacco Use In Past 30 Days: 5 or More Cigarettes/Day Alcohol Use: Monthly or Less Hospital Course Patient is 71-year-old man, lives alone at [facility], [facility], the past psychiatric history of depression, anxiety, unspecified psychosis, previous psychiatric hospitalizations, no previous suicide attempt as per chart or self-injurious behavior, remote history of alcohol use disorder, was brought in by EMS activated by his sister after she was concerned for his well-being and medial will check call. Patient was placed under [place] act due to concern of his ability to take care of himself as he was noted to have altered mental status, talking to people who were not there and making nonsensical statements. Patient admitted to the inpatient psychiatric unit for further evaluation and management. Patient was placed on CIWA which he was managed for withdrawal symptoms, started on quetiapine and titrated up to 50/50/200mg which he responded well to. Patient was started on sertraline 100mg PO daily and quetiapine 200gm PO HS which was titrated up to 100mg PO daily/400mg PO HS. Patient during the course of admission had been noted to have significant degree of deconditioning which he was followed by physical therapy and continued to participate. He responded well to treatment, was noted to be cooperative with staff, no behavioral dyscontrol during admission and was noted to have stable mood. Upon discharge patient reported feeling good denied any perceptual disturbances nor suicidal ideations or homicidal ideations. Patient agreed to continue treatment and follow up appointments for continuity of care. Patient agreed to transfer to health and rehabilitation facility which he was accepted to. Patient advised to call 911 or go nearest ED in case of emergency. Patient agreed with plan. Results Blood Pressure 125 / 68 Vital Signs Date Time Temp Pulse Resp B/P (MAP) Pulse Ox O2 Delivery O2 Flow Rate FiO2 05/24/17 06:16 98.1 67 16 125/68 (87) 97 Laboratory Results Test 05/16/17 09:40 Cholesterol Level 203 MG/DL (120-200) HDL Cholesterol 59.8 MG/DL (40.0-60.0) Hemoglobin A1c 5.5 % (4.3-6.0) LDL Cholesterol 120 MG/DL (0-99) Triglycerides Level 114 MG/DL (42-150) Summary of Procedures none Imaging Last Impressions Head CT 05/15/17 1600 Signed Impressions: Service Date/Time: Saturday, May 15, 2017 16:44 - CONCLUSION: Motion otherwise negative. Ko Maza MD FACR Chest X-Ray 05/15/17 1600 Signed Impressions: Service Date/Time: Monday, May 15, 2017 16:02 - CONCLUSION: No acute cardiopulmonary process. Christopher Wolf MD Pending results at discharge: No Medications # of Antipsychotic meds at D/C: 1 Approp Antipsych med options 1 - Minimum of three failed multiple trials of monotherapy. 2 - Documented plan to taper to monotherapy due to previous use of multiple meds OR cross-taper in progress at D/C. 3 - Documentation of augmentation of Clozapine. 4 - Justification other than those listed in allowable values 1-3, document here : Discharge Discharge Date: May 24, 2017 Discharge Diagnosis: (1) Unspecified psychosis ICD Code: F29 - Unspecified psychosis not due to a substance or known physiological condition Pt Condition on Discharge: Stable Discharge Disposition: Discharge to SNF Discharge Instructions Diet Instructions: Heart Healthy Diet Activities you can perform: Weight Bearing as Jennifer Discharge Time > 30 minutes Mental Status Examination Appearance: Appropriate Consciousness: Alert Orientation: x4 Motor Activity: Abnormal gait Speech: Slow Language: Adequate Fund of Knowledge: Inadequate Attention and Concentration: Adequate Memory: Impaired (events surrounding his recent admission) Mood: Other ("I'm there") Affect: Blunt Thought Process & Associations: Intact, Logical, Goal directed, Linear (mostly but confused at times) Thought Content: Appropriate Hallucination Type: None Delusion Type: None Suicidal Ideation: No Suicidal Plan: No Suicidal Intention: No Homicidal Ideation: No Homicidal Plan: No Homicidal Intention: No Insight: Fair Judgment: Impulsive Discharge/Advance Care Plan Health Problems: (1) Unspecified psychosis Goals to promote your health * To prevent worsening of your condition and complications * To maintain your health at the optimal level Directions to meet your goals Take your medications as prescribed Follow your dietary instruction Follow activity as directed Keep your appointments as scheduled Take your immunizations and boosters as scheduled If your symptoms worsen call your PCP, if no PCP go to Urgent Care Center or Emergency Room For 21/01 questions related to your inpatient stay or results of tests pending at discharge, please contact Dr. Ramakrishna Valentino at Smoking is Dangerous to Your Health. Avoid second hand smoking Ramakrishna Valentino MD May 24, 2017 10:45
== END 2017-05-24 12:30 | DRG 885 ==
LOC: NEPC 15:14 → NEDA 18:15 → H4EA 19:16
PROVIDERS: ADMIT Student in an Organized Health Care Education/Training Program; ATTEND Student in an Organized Health Care Education/Training Program
DX: F29 Unspecified psychosis not due to a substance or known physiological condition (principal); F03.90 Unspecified dementia, unspecified severity, without behavioral disturbance, psychotic disturbance, mood disturbance, and anxiety; J44.9 Chronic obstructive pulmonary disease, unspecified; F13.239 Sedative, hypnotic or anxiolytic dependence with withdrawal, unspecified; I10 Essential (primary) hypertension; N40.0 Benign prostatic hyperplasia without lower urinary tract symptoms; K21.9 Gastro-esophageal reflux disease without esophagitis; G89.29 Other chronic pain; F41.9 Anxiety disorder, unspecified; R53.1 Weakness; R62.7 Adult failure to thrive; Z86.73 Personal history of transient ischemic attack (TIA), and cerebral infarction without residual deficits; E78.5 Hyperlipidemia, unspecified; H91.90 Unspecified hearing loss, unspecified ear; F17.210 Nicotine dependence, cigarettes, uncomplicated
CPT/HCPCS: 70450; 71010; 80048; 80053; 80061; 80307; 81001; 82140; 82550; 82552; 83036; 83605; 84443; 84484; 85025; 85610; 85730; 93005; 94620; 94640; 94664; 96361; 96374; J2060; J7030; J7613; P9612; Q0163